=== PATIENT | male | born 1960 | race Caucasian/White ===

== ENCOUNTER → 2016-04-28 | Outpatient (REF) | payer OTHER ==
[~2016-04-28] MED LIST: ALLE180T33 PO; AMLO10TA2 PO; ASPI1TAB PO; BACT800T5 PO; CLEO300C2 PO; FURO20TA2 PO; GABA300C3 PO; GLUC1000; HYDR10TAB PO; HYDR25TA6; INSUDET SC; KEFL500C7 PO; LEVE1INJ5 SC; LISI40TA; LISI40TAB PO; METF1000 PO; NYST10PW TOP; PERCOCET PO; PREVASTATIN; PROB1TAB PO; SANT250O8 TOP; SERT50TA PO; TRIA1CR TOP; VIBR100C
== END ==
LOC: M LAB REF 12:26
PROVIDERS: ATTEND Otolaryngology
DX: D14.1 Benign neoplasm of larynx (principal)

== ENCOUNTER → 2016-07-01 | Outpatient (REF) | payer OTHER ==
[~2016-07-01] MED LIST changes: +GABA-282 PO; -GABA300C3 PO
== END ==
LOC: M LAB REF 13:09
PROVIDERS: ATTEND Nurse Practitioner Family
DX: S00.31XA Abrasion of nose, initial encounter (principal); X58.XXXA Exposure to other specified factors, initial encounter; Y93.9 Activity, unspecified; Y92.9 Unspecified place or not applicable; Y99.8 Other external cause status

== ENCOUNTER → 2016-07-09 | Outpatient (CLI) | payer OTHER ==
--- NOTE | 2016-07-09 09:31 | REP ---
MAXILLOFACIAL CT WITHOUT CONTRAST: HISTORY: Nasal bone fracture. COMPARISON: 09/11/2014. Bilateral Hector cells are present. The sinuses are clear. The osteomeatal units are patent. The middle and inferior nasal turbinates are partially paradoxical. There is cristian bullosa of the left middle nasal turbinate. There is minimal deviation of the nasal septum to the left. The cribriform plate, medial strong of the orbits, and optic canals are intact. The carotid canals form a segment of the posterolateral strong of the sphenoid sinus. There is a fracture of the nasal bone. The patient is status post left globe banding. IMPRESSION: 1. There is no acute or chronic sinusitis. 2. Nasal bone fracture. Signed by Antonio Nj MD 07/09/2016 09:32 A
== END ==
LOC: M RAD 07:07
PROVIDERS: ATTEND Otolaryngology
DX: S02.2XXA Fracture of nasal bones, initial encounter for closed fracture (principal); X58.XXXA Exposure to other specified factors, initial encounter; Y93.9 Activity, unspecified; Y92.9 Unspecified place or not applicable; Y99.8 Other external cause status

== ENCOUNTER 2017-06-04 15:41 | Emergency (ER) | payer OTHER | END 2017-06-04 17:04 | disposition home or self-care (01) | LOC: M ED 15:41 | DX: Z48.00 Encounter for change or removal of nonsurgical wound dressing (principal); E11.9 Type 2 diabetes mellitus without complications; I10 Essential (primary) hypertension; F33.9 Major depressive disorder, recurrent, unspecified | CPT/HCPCS: 99282 ==

== ENCOUNTER 2017-06-04 20:44 | Emergency (ER) | payer OTHER | END 2017-06-04 23:34 | disposition home or self-care (01) | LOC: M ED 20:44 | DX: Z45.2 Encounter for adjustment and management of vascular access device (principal); J38.7 Other diseases of larynx; Z79.2 Long term (current) use of antibiotics; Z79.899 Other long term (current) drug therapy; Z79.4 Long term (current) use of insulin; Z79.82 Long term (current) use of aspirin | CPT/HCPCS: 99284 ==

== ENCOUNTER 2017-07-14 15:40 | Emergency (ER) | payer OTHER ==
[2017-07-14] MEDS: NS 1,000 ML IV (17:34)
[2017-07-14 17:43] LABS: HEMATOCRIT 34.8 % (42.0-52.0); HEMOGLOBIN 11.6 g/dl (13.5-17.5); MEAN CORPUSCULAR HEMOGLOBIN 30.9 pg (27.0-33.0); MEAN CORPUSCULAR HGB CONC 33.3 g/dl (32.0-36.5); MEAN CORPUSCULAR VOLUME 92.6 fl (80.0-96.0); PLATELET COUNT, AUTOMATED 154 10^3/uL (150-450); RED BLOOD COUNT 3.76 10^6/uL (4.30-6.10); RED CELL DISTRIBUTION WIDTH 14.3 % (11.5-14.5); WHITE BLOOD COUNT 3.9 10^3/uL (4.0-10.0)
[2017-07-14 18:01] LABS: ANION GAP 5 MEQ/L (8-16); BLOOD UREA NITROGEN 18 MG/DL (7-18); CALCIUM LEVEL 8.7 MG/DL (8.5-10.1); CARBON DIOXIDE LEVEL 30 MEQ/L (21-32); CHLORIDE LEVEL 102 MEQ/L (98-107); GLOMERULAR FILTRATION RATE > 60.0 (>56); GLUCOSE, FASTING 115 MG/DL (70-100); POTASSIUM SERUM 4.1 MEQ/L (3.5-5.1); SODIUM LEVEL 137 MEQ/L (136-145)
[2017-07-14] MEDS ORDERED: ISOVUE-370 76% 100ML VIAL (Q9967) As Ordered (18:13)
== END 2017-07-14 20:08 | disposition home or self-care (01) ==
LOC: M ED 15:40
DX: K64.9 Unspecified hemorrhoids (principal); R93.429 Abnormal radiologic findings on diagnostic imaging of unspecified kidney; E11.9 Type 2 diabetes mellitus without complications; I10 Essential (primary) hypertension; F32.9 Major depressive disorder, single episode, unspecified; Z87.01 Personal history of pneumonia (recurrent); Z89.412 Acquired absence of left great toe; Z79.82 Long term (current) use of aspirin; Z79.4 Long term (current) use of insulin; Z79.899 Other long term (current) drug therapy
CPT/HCPCS: Q9967

== ENCOUNTER 2017-07-29 08:42 | Day surgery (SDC) | payer OTHER ==
[2017-07-29] MEDS ORDERED: LIDOCAINE 2% INJ 100 MG/5 ML SDV (FOR ANES.) As Ordered (08:57)
[2017-07-29] MEDS ORDERED: PROPOFOL 200 MG/20 ML VIAL As Ordered ×3 (08:57→12:11)
[2017-07-29] MEDS: NS 1,000 ML IV (09:00)
[2017-07-29 09:31] LABS: BEDSIDE GLUCOSE 101 MG/DL (70-105)
== END 2017-07-29 11:49 | disposition home or self-care (01) ==
LOC: M OPP 08:42
DX: K62.5 Hemorrhage of anus and rectum (principal); R63.4 Abnormal weight loss; D12.0 Benign neoplasm of cecum; D12.2 Benign neoplasm of ascending colon; D12.5 Benign neoplasm of sigmoid colon; K64.8 Other hemorrhoids; R13.10 Dysphagia, unspecified; K22.8 Other specified diseases of esophagus; K29.70 Gastritis, unspecified, without bleeding; K21.0 Gastro-esophageal reflux disease with esophagitis; I10 Essential (primary) hypertension; E78.5 Hyperlipidemia, unspecified; E11.9 Type 2 diabetes mellitus without complications; D64.9 Anemia, unspecified; Z86.14 Personal history of Methicillin resistant Staphylococcus aureus infection; L30.9 Dermatitis, unspecified; F41.9 Anxiety disorder, unspecified; F32.9 Major depressive disorder, single episode, unspecified; G47.30 Sleep apnea, unspecified; Z79.82 Long term (current) use of aspirin; Z79.4 Long term (current) use of insulin
CPT/HCPCS: 45380

== ENCOUNTER 2017-08-25 18:46 | Inpatient (IN) | payer OTHER ==
[2017-08-25 19:29] LABS: VENOUS BASE EXCESS 2.5 (-2.0-2.0); VENOUS HCO3 25.8 MEQ/L (23.0-27.0); VENOUS O2 SATURATION 93.5 % (60.0-80.0); VENOUS PARTIAL PRESSURE CO2 35.7 mmHg (38.0-50.0); VENOUS PARTIAL PRESSURE O2 62.3 mmHg (30.0-50.0); VENOUS PH 7.477 UNITS (7.330-7.430); VENOUS STANDARD HCO3 26.6 MEQ/L; VENOUS TOTAL CO2 26.9 MEQ/L (24.0-28.0)
[2017-08-25 19:31] LABS: BASO % 0.2 % (0.0-1.0); EOS % 0.4 % (0.0-3.0); HEMATOCRIT 37.8 % (42.0-52.0); HEMOGLOBIN 13.2 g/dl (13.5-17.5); IMMATURE GRANULOCYTE % 0.5 % (0-3.0); LYMPH # 0.9 10^3/uL (1.5-4.5); LYMPH % 8.7 % (24.0-44.0); MEAN CORPUSCULAR HEMOGLOBIN 31.4 pg (27.0-33.0); MEAN CORPUSCULAR HGB CONC 34.9 g/dl (32.0-36.5); MONO # 0.7 10^3/uL (0.0-0.8); MONO % 6.5 % (0.0-5.0); NEUTROPHILS # 8.7 10^3/uL (1.8-7.7); NEUTROPHILS % 83.7 % (36.0-66.0); PLATELET COUNT, AUTOMATED 189 10^3/uL (150-450); RED CELL DISTRIBUTION WIDTH 13.7 % (11.5-14.5); WHITE BLOOD COUNT 10.4 10^3/uL (4.0-10.0)
[2017-08-25 19:43] LABS: INR 1.23; PROTHROMBIN TIME 15.7 SECONDS (12.1-14.4)
[2017-08-25 19:55] LABS: ALBUMIN 3.5 GM/DL (3.2-5.2); ALBUMIN/GLOBULIN RATIO 0.88 (1.00-1.93); ALKALINE PHOSPHATASE 97 U/L (45-117); ALT/SGPT 34 U/L (12-78); ANION GAP 10 MEQ/L (8-16); AST/SGOT 23 U/L (7-37); BILIRUBIN,DIRECT 0.4 MG/DL (0.0-0.2); BILIRUBIN,TOTAL 1.4 MG/DL (0.2-1.0); BLOOD UREA NITROGEN 14 MG/DL (7-18); CALCIUM LEVEL 8.9 MG/DL (8.5-10.1); CARBON DIOXIDE LEVEL 26 MEQ/L (21-32); CHLORIDE LEVEL 100 MEQ/L (98-107); CPK CREATINE PHOSPHOKINASE 63 U/L (39-308); CREATININE FOR GFR 1.02 MG/DL (0.70-1.30); GLOMERULAR FILTRATION RATE > 60.0 (>56); GLUCOSE, FASTING 138 MG/DL (70-100); POTASSIUM SERUM 4.1 MEQ/L (3.5-5.1); SODIUM LEVEL 136 MEQ/L (136-145); TOTAL PROTEIN 7.5 GM/DL (6.4-8.2); TROPONIN I < 0.02 NG/ML (< 0.10)
[2017-08-25 19:56] LABS: LACTIC ACID SEPSIS PROTOCOL 1.1 MMOL/L (0.4-2.0)
[2017-08-25 20:01] LABS: CK-MB VALUE MASS < 1.0 NG/ML (<3.6); MB/CK RELATIVE INDEX 1.58 (< OR =4); NT-PRO BNP 1386 PG/ML (<125); THYROID STIMULATING HORMONE 0.533 uIU/ML (0.358-3.740)
[2017-08-25] MEDS: ACETAMINOPHEN TAB 650MG DOSE (2X325MG) PO (20:15)
[2017-08-25] MEDS ORDERED: LIDOCAINE 4% TOPICAL SOLN 50 ML BTL TOP (20:15)
[2017-08-25] MEDS ORDERED: ISOVUE-370 76% 100ML VIAL (Q9967) As Ordered (20:18)
[2017-08-25] MEDS: LIDOCAINE VISCOUS 2% SOLN 15ML UDC SS (20:45)
[2017-08-25] MEDS: HumaLOG INSULIN (NovoLOG) PER UNIT SC (21:00)
[2017-08-25] MEDS: VANCOMYCIN HCL 1,000 MG, VIAL MATE ADAPTER 1 EACH in D5W 250 ML IV (21:30)
[2017-08-25] MEDS: PIPERACILLIN/TAZOBACTAM SOD 3.375 GM in D5W MINI-BAG PLUS 50 ML IV (21:41)
[2017-08-25] MEDS: NS 1,000 ML IV (22:58)
[2017-08-25] MEDS ORDERED: ACETAMINOPHEN TAB 650MG DOSE (2X325MG) PO (23:00)
[2017-08-25] MEDS ORDERED: DEXTROSE 50% 50 ML SYRINGE IV (23:00)
[2017-08-25] MEDS ORDERED: GLUCAGON FOR INJ 1 MG VIAL (J1610) SC (23:00)
[2017-08-25] MEDS ORDERED: GLUCOSE 4 GM CHEW TABLET PO (23:00)
[2017-08-25] MEDS ORDERED: ANUSOL HC CREAM 30GM TOP (23:30)
[2017-08-26] MEDS: TOBRAMYCIN INHAL 300 MG/5 ML SOLN INH ×3 (03:21→19:38)
[2017-08-26] MEDS: VANCOMYCIN HCL 1,000 MG, VIAL MATE ADAPTER 1 EACH in D5W 250 ML IV ×4 (03:30→20:22)
[2017-08-26 03:36] LABS: BEDSIDE GLUCOSE 152 MG/DL (70-105)
[2017-08-26] MEDS: LISINOPRIL 20 MG TAB PO ×3 (03:51→20:23)
[2017-08-26] MEDS: LACTOBACILLUS ACIDOPHILUS CAP (BACID) PO ×4 (03:54→20:22)
[2017-08-26] MEDS: PANTOPRAZOLE 40MG TAB (PROTONIX) PO ×3 (03:54→20:23)
[2017-08-26] MEDS: PIPERACILLIN/TAZOBACTAM SOD 4.5 GM in D5W MINI-BAG PLUS 50 ML IV ×4 (04:00→21:54)
[2017-08-26] MEDS: AZITHROMYCIN INJ 500 MG, VIAL MATE ADAPTER 1 EACH in D5W 250 ML IV (05:08)
[2017-08-26 05:55] LABS: BASO % 0.2 % (0.0-1.0); EOS # 0.1 10^3/uL (0.0-0.50); EOS % 1.1 % (0.0-3.0); HEMATOCRIT 34.9 % (42.0-52.0); HEMOGLOBIN 12.1 g/dl (13.5-17.5); IMMATURE GRANULOCYTE % 0.5 % (0-3.0); LYMPH # 0.8 10^3/uL (1.5-4.5); MEAN CORPUSCULAR HEMOGLOBIN 30.8 pg (27.0-33.0); MEAN CORPUSCULAR HGB CONC 34.7 g/dl (32.0-36.5); MEAN CORPUSCULAR VOLUME 88.8 fl (80.0-96.0); MONO # 0.5 10^3/uL (0.0-0.8); NEUTROPHILS # 6.7 10^3/uL (1.8-7.7); NEUTROPHILS % 82.2 % (36.0-66.0); PLATELET COUNT, AUTOMATED 166 10^3/uL (150-450); RED BLOOD COUNT 3.93 10^6/uL (4.30-6.10); RED CELL DISTRIBUTION WIDTH 13.7 % (11.5-14.5); WHITE BLOOD COUNT 8.1 10^3/uL (4.0-10.0)
[2017-08-26 06:14] LABS: ANION GAP 9 MEQ/L (8-16); BLOOD UREA NITROGEN 16 MG/DL (7-18); CALCIUM LEVEL 8.4 MG/DL (8.5-10.1); CARBON DIOXIDE LEVEL 27 MEQ/L (21-32); CHLORIDE LEVEL 100 MEQ/L (98-107); CREATININE FOR GFR 0.95 MG/DL (0.70-1.30); GLOMERULAR FILTRATION RATE > 60.0 (>56); GLUCOSE, FASTING 155 MG/DL (70-100); POTASSIUM SERUM 3.6 MEQ/L (3.5-5.1); SODIUM LEVEL 136 MEQ/L (136-145)
[2017-08-26] MEDS: NS 1,000 ML IV (06:39)
[2017-08-26] MEDS: HEPARIN SOD (PORCINE) 5000 UNITS/ML VIAL SQ ×2 (08:21→20:23)
[2017-08-26] MEDS: CitaloPRAM (CeleXA) 20 MG TAB PO (08:21)
[2017-08-26] MEDS: predniSONE 10 MG TAB PO (08:21)
[2017-08-26] MEDS: ASPIRIN 81 MG ENTERIC TAB PO (08:21)
[2017-08-26] MEDS: FAMOTIDINE 20 MG TAB PO (08:22)
[2017-08-26] MEDS: METOPROLOL TART 25 MG TABLET PO (08:22)
[2017-08-26] MEDS: amLODIPine 10 MG TAB PO (08:22)
[2017-08-26] MEDS: ATORVASTATIN 20 MG TAB PO (08:23)
[2017-08-26] MEDS: SERTRALINE HCL 50 MG TAB PO (08:23)
[2017-08-26] MEDS: SANTYL OINT 30GM TOP (08:24)
[2017-08-26] MEDS: LACTIC ACID 12% LOTION 225 GM BTL TOP (08:24)
[2017-08-26] MEDS: LEVEMIR (INSULIN DETEMIR) 1 UNITS/0.01ML SC (08:25)
[2017-08-26] MEDS: HumaLOG INSULIN (NovoLOG) PER UNIT SC ×4 (08:25→20:59)
[2017-08-26] MEDS: FUROSEMIDE 20 MG TAB PO (08:25)
[2017-08-26 09:04] LABS: CK-MB VALUE MASS < 1.0 NG/ML (<3.6); CPK CREATINE PHOSPHOKINASE 42 U/L (39-308); MB/CK RELATIVE INDEX 2.38 (< OR =4); TROPONIN I < 0.02 NG/ML (< 0.10)
[2017-08-26] MEDS ORDERED: VARIBAR NECTAR 40% w/v 240ML SUSP BTL As Ordered (10:17)
[2017-08-26] MEDS ORDERED: VARIBAR PUDDING 40% w/v 230ML TUBE As Ordered (10:17)
[2017-08-26] MEDS ORDERED: E-Z-PAQUE 96% w/w SUSP 176GM BTL As Ordered (10:17)
[2017-08-26 11:58] LABS: BEDSIDE GLUCOSE 169 MG/DL (70-105)
[2017-08-26] MEDS: predniSONE 20 MG TAB PO (12:25)
[2017-08-26] MEDS: POTASSIUM CHLORIDE 10 MEQ SR TABLET PO (12:26)
[2017-08-26] MEDS ORDERED: PROHANCE 279.3MG/ML 5ML VIAL (A9576) As Ordered (14:34)
[2017-08-26] MEDS ORDERED: PROHANCE 279.3MG/ML 15ML VIAL (A9576) As Ordered (14:35)
[2017-08-26 17:23] LABS: BEDSIDE GLUCOSE 246 MG/DL (70-105)
[2017-08-26 19:52] LABS: VANCOMYCIN LEVEL TROUGH 16.7 UG/ML (10.0-20.0)
[2017-08-26 20:31] LABS: BEDSIDE GLUCOSE 316 MG/DL (70-105)
[2017-08-27] MEDS: AZITHROMYCIN INJ 500 MG, VIAL MATE ADAPTER 1 EACH in D5W 250 ML IV (00:59)
[2017-08-27] MEDS: VANCOMYCIN HCL 1,000 MG, VIAL MATE ADAPTER 1 EACH in D5W 250 ML IV ×4 (02:00→20:22)
[2017-08-27] MEDS: PIPERACILLIN/TAZOBACTAM SOD 4.5 GM in D5W MINI-BAG PLUS 50 ML IV ×4 (04:00→22:17)
[2017-08-27 05:58] LABS: HEMATOCRIT 35.1 % (42.0-52.0); HEMOGLOBIN 12.1 g/dl (13.5-17.5); MEAN CORPUSCULAR HEMOGLOBIN 30.9 pg (27.0-33.0); MEAN CORPUSCULAR HGB CONC 34.5 g/dl (32.0-36.5); MEAN CORPUSCULAR VOLUME 89.8 fl (80.0-96.0); PLATELET COUNT, AUTOMATED 196 10^3/uL (150-450); RED BLOOD COUNT 3.91 10^6/uL (4.30-6.10); RED CELL DISTRIBUTION WIDTH 13.4 % (11.5-14.5); WHITE BLOOD COUNT 7.7 10^3/uL (4.0-10.0)
[2017-08-27 06:14] LABS: ANION GAP 6 MEQ/L (8-16); BLOOD UREA NITROGEN 16 MG/DL (7-18); C REACTIVE PROTEIN QUANTITATIV 9.36 MG/DL (0.00-0.30); CALCIUM LEVEL 8.7 MG/DL (8.5-10.1); CARBON DIOXIDE LEVEL 29 MEQ/L (21-32); CHLORIDE LEVEL 102 MEQ/L (98-107); CREATININE FOR GFR 0.98 MG/DL (0.70-1.30); GLOMERULAR FILTRATION RATE > 60.0 (>56); GLUCOSE, FASTING 142 MG/DL (70-100); SODIUM LEVEL 137 MEQ/L (136-145)
[2017-08-27] MEDS: SANTYL OINT 30GM TOP (08:53)
[2017-08-27] MEDS: HEPARIN SOD (PORCINE) 5000 UNITS/ML VIAL SQ ×2 (08:54→20:28)
[2017-08-27] MEDS: PANTOPRAZOLE 40MG TAB (PROTONIX) PO ×2 (08:54→20:28)
[2017-08-27] MEDS: LACTOBACILLUS ACIDOPHILUS CAP (BACID) PO ×3 (08:54→20:26)
[2017-08-27] MEDS: ASPIRIN 81 MG ENTERIC TAB PO (08:54)
[2017-08-27] MEDS: FUROSEMIDE 20 MG TAB PO (08:54)
[2017-08-27] MEDS: ATORVASTATIN 20 MG TAB PO (08:54)
[2017-08-27] MEDS: CitaloPRAM (CeleXA) 20 MG TAB PO (08:55)
[2017-08-27] MEDS: FAMOTIDINE 20 MG TAB PO (08:55)
[2017-08-27] MEDS: SERTRALINE HCL 50 MG TAB PO (08:55)
[2017-08-27] MEDS: predniSONE 10 MG TAB PO (08:55)
[2017-08-27] MEDS: METOPROLOL TART 25 MG TABLET PO (08:56)
[2017-08-27] MEDS: LISINOPRIL 20 MG TAB PO ×2 (08:56→20:27)
[2017-08-27] MEDS: amLODIPine 10 MG TAB PO (08:56)
[2017-08-27] MEDS: LACTIC ACID 12% LOTION 225 GM BTL TOP (08:57)
[2017-08-27] MEDS: LEVEMIR (INSULIN DETEMIR) 1 UNITS/0.01ML SC (08:57)
[2017-08-27] MEDS: HumaLOG INSULIN (NovoLOG) PER UNIT SC ×4 (08:57→20:28)
[2017-08-27] MEDS: TOBRAMYCIN INHAL 300 MG/5 ML SOLN INH ×2 (09:21→20:00)
[2017-08-27 11:35] LABS: BEDSIDE GLUCOSE 117 MG/DL (70-105)
[2017-08-27 16:57] LABS: BEDSIDE GLUCOSE 265 MG/DL (70-105)
[2017-08-27 20:17] LABS: BEDSIDE GLUCOSE 192 MG/DL (70-105)
[2017-08-28] MEDS: AZITHROMYCIN INJ 500 MG, VIAL MATE ADAPTER 1 EACH in D5W 250 ML IV (00:32)
[2017-08-28] MEDS: VANCOMYCIN HCL 1,000 MG, VIAL MATE ADAPTER 1 EACH in D5W 250 ML IV ×2 (02:07→08:18)
[2017-08-28] MEDS: PIPERACILLIN/TAZOBACTAM SOD 4.5 GM in D5W MINI-BAG PLUS 50 ML IV ×2 (04:05→10:10)
[2017-08-28 07:06] LABS: HEMATOCRIT 33.9 % (42.0-52.0); HEMOGLOBIN 11.8 g/dl (13.5-17.5); MEAN CORPUSCULAR HEMOGLOBIN 30.9 pg (27.0-33.0); MEAN CORPUSCULAR HGB CONC 34.8 g/dl (32.0-36.5); MEAN CORPUSCULAR VOLUME 88.7 fl (80.0-96.0); PLATELET COUNT, AUTOMATED 207 10^3/uL (150-450); RED BLOOD COUNT 3.82 10^6/uL (4.30-6.10); RED CELL DISTRIBUTION WIDTH 13.6 % (11.5-14.5); WHITE BLOOD COUNT 6.7 10^3/uL (4.0-10.0)
[2017-08-28 07:28] LABS: ANION GAP 8 MEQ/L (8-16); BLOOD UREA NITROGEN 17 MG/DL (7-18); C REACTIVE PROTEIN QUANTITATIV 3.43 MG/DL (0.00-0.30); CALCIUM LEVEL 8.4 MG/DL (8.5-10.1); CARBON DIOXIDE LEVEL 29 MEQ/L (21-32); CHLORIDE LEVEL 101 MEQ/L (98-107); CREATININE FOR GFR 1.04 MG/DL (0.70-1.30); GLOMERULAR FILTRATION RATE > 60.0 (>56); GLUCOSE, FASTING 110 MG/DL (70-100); MAGNESIUM LEVEL 2.2 MG/DL (1.8-2.4); POTASSIUM SERUM 3.7 MEQ/L (3.5-5.1); SODIUM LEVEL 138 MEQ/L (136-145); VANCOMYCIN LEVEL TROUGH 19.3 UG/ML (10.0-20.0)
[2017-08-28] MEDS: TOBRAMYCIN INHAL 300 MG/5 ML SOLN INH ×2 (07:51→20:30)
[2017-08-28] MEDS: HumaLOG INSULIN (NovoLOG) PER UNIT SC ×4 (08:17→21:00)
[2017-08-28] MEDS: HEPARIN SOD (PORCINE) 5000 UNITS/ML VIAL SQ ×2 (08:18→22:34)
[2017-08-28] MEDS: LEVEMIR (INSULIN DETEMIR) 1 UNITS/0.01ML SC (08:18)
[2017-08-28] MEDS: LACTOBACILLUS ACIDOPHILUS CAP (BACID) PO ×3 (08:19→20:11)
[2017-08-28] MEDS: SERTRALINE HCL 50 MG TAB PO (08:19)
[2017-08-28] MEDS: FAMOTIDINE 20 MG TAB PO (08:19)
[2017-08-28] MEDS: FUROSEMIDE 20 MG TAB PO (08:20)
[2017-08-28] MEDS: METOPROLOL TART 25 MG TABLET PO (08:20)
[2017-08-28] MEDS: predniSONE 10 MG TAB PO (08:21)
[2017-08-28] MEDS: CitaloPRAM (CeleXA) 20 MG TAB PO (08:21)
[2017-08-28] MEDS: amLODIPine 10 MG TAB PO (08:22)
[2017-08-28] MEDS: PANTOPRAZOLE 40MG TAB (PROTONIX) PO ×2 (08:22→20:11)
[2017-08-28] MEDS: ATORVASTATIN 20 MG TAB PO (08:22)
[2017-08-28] MEDS: LISINOPRIL 20 MG TAB PO ×2 (08:23→20:11)
[2017-08-28] MEDS: ASPIRIN 81 MG ENTERIC TAB PO (08:23)
[2017-08-28] MEDS: LACTIC ACID 12% LOTION 225 GM BTL TOP (10:10)
[2017-08-28] MEDS: SANTYL OINT 30GM TOP (10:43)
[2017-08-28 11:23] LABS: BEDSIDE GLUCOSE 138 MG/DL (70-105)
[2017-08-28] MEDS: LINEZOLID 600MG TABLET (ZYVOX) PO ×2 (11:54→20:11)
[2017-08-28 16:38] LABS: BEDSIDE GLUCOSE 293 MG/DL (70-105)
[2017-08-28 20:10] LABS: BEDSIDE GLUCOSE 242 MG/DL (70-105)
[2017-08-28] MEDS: CEFDINIR 300 MG CAP (OMNICEF) PO (20:11)
[2017-08-29 06:28] LABS: HEMATOCRIT 35.8 % (42.0-52.0); HEMOGLOBIN 12.3 g/dl (13.5-17.5); MEAN CORPUSCULAR HEMOGLOBIN 30.9 pg (27.0-33.0); MEAN CORPUSCULAR HGB CONC 34.4 g/dl (32.0-36.5); MEAN CORPUSCULAR VOLUME 89.9 fl (80.0-96.0); PLATELET COUNT, AUTOMATED 216 10^3/uL (150-450); RED BLOOD COUNT 3.98 10^6/uL (4.30-6.10); RED CELL DISTRIBUTION WIDTH 13.5 % (11.5-14.5)
[2017-08-29 06:44] LABS: ANION GAP 5 MEQ/L (8-16); BLOOD UREA NITROGEN 17 MG/DL (7-18); C REACTIVE PROTEIN QUANTITATIV 1.76 MG/DL (0.00-0.30); CALCIUM LEVEL 8.7 MG/DL (8.5-10.1); CARBON DIOXIDE LEVEL 31 MEQ/L (21-32); CHLORIDE LEVEL 102 MEQ/L (98-107); CREATININE FOR GFR 1.01 MG/DL (0.70-1.30); GLOMERULAR FILTRATION RATE > 60.0 (>56); GLUCOSE, FASTING 148 MG/DL (70-100); POTASSIUM SERUM 3.9 MEQ/L (3.5-5.1); SODIUM LEVEL 138 MEQ/L (136-145)
[2017-08-29] MEDS: TOBRAMYCIN INHAL 300 MG/5 ML SOLN INH (07:28)
[2017-08-29] MEDS: HumaLOG INSULIN (NovoLOG) PER UNIT SC ×2 (08:27→12:00)
[2017-08-29] MEDS: LEVEMIR (INSULIN DETEMIR) 1 UNITS/0.01ML SC (08:28)
[2017-08-29] MEDS: LACTOBACILLUS ACIDOPHILUS CAP (BACID) PO ×2 (08:28→15:59)
[2017-08-29] MEDS: CEFDINIR 300 MG CAP (OMNICEF) PO (08:28)
[2017-08-29] MEDS: predniSONE 10 MG TAB PO (08:29)
[2017-08-29] MEDS: FAMOTIDINE 20 MG TAB PO (08:29)
[2017-08-29] MEDS: LISINOPRIL 20 MG TAB PO (08:29)
[2017-08-29] MEDS: CitaloPRAM (CeleXA) 20 MG TAB PO (08:29)
[2017-08-29] MEDS: METOPROLOL TART 25 MG TABLET PO (08:29)
[2017-08-29] MEDS: LINEZOLID 600MG TABLET (ZYVOX) PO ×2 (08:30→15:59)
[2017-08-29] MEDS: amLODIPine 10 MG TAB PO (08:30)
[2017-08-29] MEDS: FUROSEMIDE 20 MG TAB PO (08:30)
[2017-08-29] MEDS: ATORVASTATIN 20 MG TAB PO (08:30)
[2017-08-29] MEDS: ASPIRIN 81 MG ENTERIC TAB PO (08:30)
[2017-08-29] MEDS: PANTOPRAZOLE 40MG TAB (PROTONIX) PO (08:30)
[2017-08-29] MEDS: HEPARIN SOD (PORCINE) 5000 UNITS/ML VIAL SQ (08:31)
[2017-08-29] MEDS: LACTIC ACID 12% LOTION 225 GM BTL TOP (08:32)
[2017-08-29] MEDS: SANTYL OINT 30GM TOP (08:32)
[2017-08-30 00:07] LABS: BODY FLUID CULTURE Not Indicated (.); LEGIONELLA ANTIGEN URINE Negative (Negative); ORGANISM ID Not indicated. (.); SPECIMEN SOURCE Urine (.); URINE STREP PNEUMONIAE ANTIGEN Negative (Negative)
== END 2017-08-29 16:05 | disposition home or self-care (01) | DRG 143 ==
LOC: M PCU 08-26 02:54 → M MS5PR 08-27 16:23 → M ED 18:46 → M ED INP 22:58
PROC: 0CJS8ZZ Inspection of Larynx, Via Natural or Artificial Opening Endoscopic (ICD-10-PCS; principal; 2017-08-25)
DX: J95.89 Other postprocedural complications and disorders of respiratory system, not elsewhere classified (principal); J15.212 Pneumonia due to Methicillin resistant Staphylococcus aureus; A41.9 Sepsis, unspecified organism; E11.621 Type 2 diabetes mellitus with foot ulcer; L97.519 Non-pressure chronic ulcer of other part of right foot with unspecified severity; R13.13 Dysphagia, pharyngeal phase; I10 Essential (primary) hypertension; J38.7 Other diseases of larynx; L03.031 Cellulitis of right toe; D35.00 Benign neoplasm of unspecified adrenal gland; E66.9 Obesity, unspecified; E78.5 Hyperlipidemia, unspecified; F32.9 Major depressive disorder, single episode, unspecified; G47.33 Obstructive sleep apnea (adult) (pediatric); Z79.52 Long term (current) use of systemic steroids; Z89.422 Acquired absence of other left toe(s); Z79.4 Long term (current) use of insulin; Z79.82 Long term (current) use of aspirin; Z79.899 Other long term (current) drug therapy; Y95 Nosocomial condition

== ENCOUNTER 2018-07-16 08:18 | Emergency (ER) | payer OTHER ==
[~2018-07-16] VITALS: Ht 188 cm; Wt 125.5 kg
[~2018-07-16 08:18] MED LIST changes: -AMLO10TA2 PO; +AMLO10TA5 PO; +AMMO12CR7 TOP; +AMOX875T2 PO; +ANUS2.5C2 EXT; -ASPI1TAB PO; +ASPI81TA26 PO; +ATOR1TAB21 PO; +CEFD1CAP8 PO; +CITA40TA4 PO; -GABA-282 PO; +GABA-843 PO; +HYDR-2773 PO; -HYDR10TAB PO; +HYDR2.5C54 TOP; +KEFL500C17 PO; -KEFL500C7 PO; +LINE600T11 PO; +LISI-538 PO; +LISI40TA52 PO; -LISI40TAB PO; -METF1000 PO; +METF10004 PO; +METO1TAB87 PO; +NYST-15 TOP; -NYST10PW TOP; +OMEP40CA2 PO; +PANT40TA3 PO; +PRED10PA PO; +PRED10TA2 PO; +RANI300T PO; +SERT-141 PO; -SERT50TA PO; +TOBR1NEB INH; +TRIA0.1C60 TOP; -TRIA1CR TOP
[2018-07-16] MEDS ORDERED: ASPIRIN 81 MG CHEW TABLET PO ONE (08:45)
[2018-07-16 08:52] LABS: BASO % 0.5 % (0.0-1.0); EOS # 0.1 10^3/uL (0.0-0.50); EOS % 3.3 % (0.0-3.0); HEMATOCRIT 37.1 % (42.0-52.0); HEMOGLOBIN 12.9 g/dl (13.5-17.5); LYMPH # 0.9 10^3/uL (1.5-4.5); LYMPH % 22.3 % (24.0-44.0); MEAN CORPUSCULAR HEMOGLOBIN 34.8 pg (27.0-33.0); MEAN CORPUSCULAR HGB CONC 34.8 g/dl (32.0-36.5); MONO # 0.3 10^3/uL (0.0-0.8); MONO % 6.3 % (0.0-5.0); NEUTROPHILS # 2.7 10^3/uL (1.8-7.7); NEUTROPHILS % 67.1 % (36.0-66.0); PLATELET COUNT, AUTOMATED 147 10^3/uL (150-450); RED BLOOD COUNT 3.71 10^6/uL (4.30-6.10)
[2018-07-16] MEDS ORDERED: ENAL20TA PO (08:53)
[2018-07-16] MEDS ORDERED: FOLI800C PO (08:53)
[2018-07-16] MEDS ORDERED: ROSU20TA4 PO (08:53)
[2018-07-16] MEDS ORDERED: OXYC15TA76 PO (08:53)
[2018-07-16] MEDS ORDERED: BISO5TAB5 PO (08:53)
[2018-07-16] MEDS ORDERED: METH2.5T48 PO (08:53)
--- NOTE | 2018-07-16 09:17 | REP ---
Chest one-view HISTORY: Chest pain Comparison: 09/07/2017 The lungs are clear. The heart is upper limits of normal in size. The pulmonary vasculature is normal in appearance. Impression: No acute disease. Electronically Signed by Antonio Nj MD 07/16/2018 09:08 A
[2018-07-16 09:23] LABS: ALT/SGPT 62 U/L (12-78); BILIRUBIN,DIRECT 0.3 MG/DL (0.0-0.2); BILIRUBIN,TOTAL 0.8 MG/DL (0.2-1.0); BLOOD UREA NITROGEN 14 MG/DL (7-18); CALCIUM LEVEL 8.5 MG/DL (8.5-10.1); CARBON DIOXIDE LEVEL 25 MEQ/L (21-32); CHLORIDE LEVEL 103 MEQ/L (98-107); CK-MB VALUE MASS 4.7 NG/ML (<3.6); CPK CREATINE PHOSPHOKINASE 238 U/L (39-308); CREATININE FOR GFR 1.14 MG/DL (0.70-1.30); GLOMERULAR FILTRATION RATE > 60.0 (>56); GLUCOSE, FASTING 165 MG/DL (70-100); LIPASE 272 U/L (73-393); MB/CK RELATIVE INDEX 1.97 (< OR =4); POTASSIUM SERUM 4.2 MEQ/L (3.5-5.1); SODIUM LEVEL 137 MEQ/L (136-145); TOTAL PROTEIN 7.5 GM/DL (6.4-8.2); TROPONIN I < 0.02 NG/ML (< 0.10)
--- NOTE | 2018-07-16 11:10 | REP ---
GALLBLADDER ULTRASOUND: HISTORY: Epigastric pain. The gallbladder is distended. Calcifications are present in the gallbladder consistent with cholelithiasis. The gallbladder wall is thickened measuring 6 mm. The common bile duct measures 4.4 mm. The liver is enlarged measuring 19.2 cm. There is fatty infiltration of the liver. The pancreas is not seen due to overlying bowel gas. The right kidney measures 6.2 cm in transverse x 5.5 cm in AP x 13 cm in cephalocaudal dimensions. There is no hydronephrosis or mass. IMPRESSION: 1. The gallbladder wall is distended with a thickened wall. Calcifications are present consisting with cholelithiasis. 2. The liver is enlarged. There is fatty infiltration of the liver. Electronically Signed by Antonio Nj MD 07/16/2018 11:16 A
[2018-07-16 11:46] LABS: CK-MB VALUE MASS 4.2 NG/ML (<3.6); CPK CREATINE PHOSPHOKINASE 195 U/L (39-308); MB/CK RELATIVE INDEX 2.15 (< OR =4); TROPONIN I < 0.02 NG/ML (< 0.10)
[2018-07-16] MEDS ORDERED: NORC1TAB7 PO (13:36)
[2018-07-16] MEDS ORDERED: AUGM875T28 PO (13:36)
[2018-07-16 14:34] VITALS: BP 176/83
--- NOTE | 2018-07-16 19:49 | ECGEPIP ---
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
--- NOTE | 2018-07-16 19:52 | ECGEPIP ---
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
== END 2018-07-16 14:38 | disposition home or self-care (01) ==
LOC: M ED 08:18
DX: K80.50 Calculus of bile duct without cholangitis or cholecystitis without obstruction (principal); R00.1 Bradycardia, unspecified; I45.10 Unspecified right bundle-branch block; I44.0 Atrioventricular block, first degree; K76.0 Fatty (change of) liver, not elsewhere classified; R16.0 Hepatomegaly, not elsewhere classified; E11.9 Type 2 diabetes mellitus without complications; I10 Essential (primary) hypertension; E78.5 Hyperlipidemia, unspecified; K21.9 Gastro-esophageal reflux disease without esophagitis; G47.30 Sleep apnea, unspecified; F32.9 Major depressive disorder, single episode, unspecified; F41.9 Anxiety disorder, unspecified; Z86.14 Personal history of Methicillin resistant Staphylococcus aureus infection; Z79.82 Long term (current) use of aspirin; Z79.84 Long term (current) use of oral hypoglycemic drugs; Z79.899 Other long term (current) drug therapy

== ENCOUNTER → 2018-08-09 | Outpatient (REF) | payer OTHER ==
[~2018-08-09] MED LIST changes: +AUGM875T28 PO; +BISO5TAB5 PO; +ENAL20TA PO; +FOLI800C PO; +LINE1TAB6 PO; -LINE600T11 PO; +METH2.5T48 PO; +NORC1TAB7 PO; +OXYC15TA76 PO; +ROSU20TA5 PO
== END ==
LOC: M LAB REF 16:12
PROVIDERS: ATTEND Nurse Practitioner Adult Health
DX: L03.032 Cellulitis of left toe (principal)

== ENCOUNTER 2018-10-16 20:24 | Inpatient (IN) | payer OTHER ==
[~2018-10-16] VITALS: Ht 188 cm; Wt 123.0 kg
[~2018-10-16 20:24] MED LIST changes: -BISO5TAB5 PO; +BISO5TAB9 PO
[2018-10-16] MEDS ORDERED: ALLE1TAB23 PO (20:55)
[2018-10-16 21:13] LABS: BASO % 0.2 % (0.0-1.0); HEMATOCRIT 40.5 % (42.0-52.0); HEMOGLOBIN 14.4 g/dl (13.5-17.5); LYMPH # 0.8 10^3/uL (1.5-5.0); LYMPH % 8.3 % (24.0-44.0); MEAN CORPUSCULAR HEMOGLOBIN 33.7 pg (27.0-33.0); MEAN CORPUSCULAR HGB CONC 35.6 g/dl (32.0-36.5); MEAN CORPUSCULAR VOLUME 94.8 fl (80.0-96.0); MONO # 0.9 10^3/uL (0.0-0.8); MONO % 9.2 % (0.0-5.0); NEUTROPHILS # 8.2 10^3/uL (1.5-8.5); NEUTROPHILS % 81.7 % (36.0-66.0); PLATELET COUNT, AUTOMATED 173 10^3/uL (150-450); RED BLOOD COUNT 4.27 10^6/uL (4.30-6.10)
[2018-10-16 21:24] LABS: ALBUMIN 3.9 GM/DL (3.2-5.2); ALT/SGPT 32 U/L (12-78); AMYLASE 35 U/L (25-115); BILIRUBIN,DIRECT 0.7 MG/DL (0.0-0.2); BILIRUBIN,TOTAL 1.9 MG/DL (0.2-1.0); BLOOD UREA NITROGEN 16 MG/DL (7-18); CALCIUM LEVEL 9.3 MG/DL (8.5-10.1); CARBON DIOXIDE LEVEL 23 MEQ/L (21-32); CHLORIDE LEVEL 97 MEQ/L (98-107); CREATININE FOR GFR 1.15 MG/DL (0.70-1.30); GLOMERULAR FILTRATION RATE > 60.0 (>56); GLUCOSE, FASTING 240 MG/DL (70-100); INR 1.21; LIPASE 194 U/L (73-393); POTASSIUM SERUM 4.1 MEQ/L (3.5-5.1); SODIUM LEVEL 131 MEQ/L (136-145); TOTAL PROTEIN 7.5 GM/DL (6.4-8.2)
[2018-10-16 21:25] LABS: PARTIAL THROMBOPLASTIN TIME 33.4 SECONDS (25.0-38.4)
[2018-10-16] MEDS ORDERED: MORPHINE 4 MG/ML 1ML VIAL/SYRINGE (J2270) IV ONE (22:45)
[2018-10-16] MEDS ORDERED: NS 500 ML IV ONE (22:45)
[2018-10-16] MEDS ORDERED: ISOVUE-370 76% 100ML VIAL (Q9967) As Ordered ONE (23:19)
--- NOTE | 2018-10-17 00:55 | REPVR ---
EXAM: CT Abdomen and Pelvis With Contrast EXAM DATE/TIME: 10/16/2018 10:38 PM CLINICAL HISTORY: 58 years old, male; Abdominal pain; Generalized TECHNIQUE: Imaging protocol: Computed tomography of the abdomen and pelvis with intravenous contrast. Radiation optimization: All CT scans at this facility use at least one of these dose optimization techniques: automated exposure control; mA and/or kV adjustment per patient size (includes targeted exams where dose is matched to clinical indication); or iterative reconstruction. Contrast material: ISO; Contrast volume: 100 ml; Contrast route: AC; COMPARISON: GALLBLADDER US 07/16/2018 10:31:[address] ABD/PEL W/IV CONTRAST ONLY 07/14/2017 6:14 PM FINDINGS: Lungs: The imaged lung bases are clear. Heart: No cardiomegaly. There is a trace amount of pericardial fluid. Mitral annular calcifications are present. Liver: The attenuation of the liver is lower compared to the spleen, which can be seen with fatty liver infiltration. No liver lesion is seen. The contour of the liver is smooth. The liver is enlarged and measures 16.6 cm in craniocaudal dimension at the level of the right midclavicular line. Gallbladder and bile ducts: The gallbladder is distended and contains several calcified gallstones and there is inflammatory fat stranding around the gallbladder, which are findings compatible with acute cholecystitis. No dilation of the intrahepatic or extrahepatic bile ducts is noted. Pancreas: Normal. No ductal dilation. Spleen: Normal. No splenomegaly. Adrenals: There is a 2 cm nodule in the medial limb of the right adrenal gland and a 1.6 cm nodule in the medial limb of the left adrenal gland, which are unchanged in size compared to the prior CT scan on 07/14/2017 and compatible with benign adrenal adenomas for which follow-up is not necessary. Kidneys and ureters: Incidental note is made of a 4 mm simple cyst in the posterior cortex of the midpole of the right kidney, which is unchanged compared to the prior CT scan on 07/14/2017 for which follow-up is not necessary. No calculi are seen in the kidneys or ureters. There is no hydronephrosis or hydroureter. There are no wedge-shaped areas of low attenuation in the kidneys to suggest pyelonephritis. There is no renal abscess or perinephric fluid collection. Stomach and bowel: There is no evidence for a bowel obstruction, diverticulosis, diverticulitis, colitis, pneumatosis intestinalis, intussusception, volvulus, or perforated viscus. Appendix: Normal. No evidence for appendicitis. Intraperitoneal space: Unremarkable. No free air. No fluid collection. Vasculature: The abdominal aorta is patent, normal in caliber, and there is no dissection. There are mild to moderate atherosclerotic calcifications. The renal arteries, celiac artery, superior mesenteric artery, inferior mesenteric artery, iliac arteries, and common femoral arteries are patent. The hepatic veins, portal veins, splenic vein, superior mesenteric vein, inferior mesenteric vein, and renal veins are patent. Lymph nodes: There is a 17 mm in short axis periportal lymph node, which has decreased in size from 20 mm compared to the prior CT scan on 07/14/2017. Bladder: Unremarkable. No calculi or masses are noted in the bladder. Reproductive: The prostate gland and seminal vesicles are unremarkable. Bones/joints: The imaged bony structures are intact. There is no suspicious osteolytic or osteoblastic lesion. Incidental note is made of a small bone island in the left femoral head, which is unchanged compared to the prior CT scan on 07/14/2017. There are degenerative changes in the lumbar spine. Soft tissues: Unremarkable. IMPRESSION: 1. Acute cholecystitis. 2. Enlarged, fatty liver. COMMENT: Consistent with the [employer]'s Incidental Findings Committee Report (J Am Leif Radiol 2010): Unless the patient's specific circumstances suggest otherwise, any liver lesion 0.5 cm or less, any cystic kidney lesion less than 1.0 cm, and/or any adrenal lesion 1.0 cm or less not otherwise characterized in this report as possessing suspicious or indeterminate imaging features is/are highly likely to be benign and do not require follow-up imaging or biopsy. Electronically signed by: Prabhu Perkins On 10/17/2018 00:55:00 AM
[2018-10-17] MEDS ORDERED: FOLI1TAB11 PO (01:26)
[2018-10-17] MEDS ORDERED: FEXO-4 PO (01:26)
[2018-10-17] MEDS ORDERED: ALKATAB21 PO (01:35)
[2018-10-17] MEDS ORDERED: MORPHINE 4 MG/ML 1ML VIAL/SYRINGE (J2270) IV ONE (02:00)
[2018-10-17] MEDS ORDERED: ONDANSETRON 4MG/2ML VIAL (J2405) IV PRN (02:00)
[2018-10-17] MEDS ORDERED: MORPHINE 2 MG/ML 1ML SYRINGE (J2270) IV PRN (02:00)
[2018-10-17] MEDS ORDERED: cefTRIAXone SOD 1 GM in D5W MINI-BAG PLUS 50 ML IV ONE (02:00)
[2018-10-17] MEDS: LR 1,000 ML IV SCH ×4 (02:10→21:00)
--- NOTE | 2018-10-17 03:08 | REPVR ---
EXAM: US Abdomen Limited, Right Upper Quadrant EXAM DATE/TIME: 10/17/2018 2:51 AM CLINICAL HISTORY: 58 years old, male; Abdominal pain; Acute; Additional info: Cholecystitis TECHNIQUE: Imaging protocol: Real-time ultrasound of the abdomen with image documentation. Examination was focused on the right upper quadrant. COMPARISON: CT ABD/PEL W/IV CONTRAST 10/16/2018 11:23:02 PM GALLBLADDER US 07/16/2018 10:31 AM FINDINGS: Liver: The liver is enlarged and measures 17.5 cm. The echogenicity of the liver is increased and there is poor sound transition through the liver, which are findings compatible with fatty liver infiltration. No liver lesion is identified from the images obtained. The contour of the liver is smooth. Gallbladder: The gallbladder is distended, contains calculi and biliary sludge, and there is gallbladder wall thickening and a positive sonographic Wade's sign, which are findings compatible with acute cholecystitis. Common bile duct: The common bile duct measures 6 mm in diameter at the level of the spenser hepatis. Pancreas: The visualized portion of the pancreas is unremarkable. Right kidney: The right kidney is unremarkable and measures 12.6 cm in length. There is no renal cortical thinning. The renal cortical echogenicity is within normal limits. No renal mass is seen. There is no hydronephrosis. No obvious stones are seen in the renal collecting system. Intraperitoneal space: No free fluid is seen from the images obtained. IMPRESSION: 1. Acute cholecystitis. 2. Enlarged, fatty liver. Electronically signed by: Prabhu Perkins On 10/17/2018 03:08:16 AM
[2018-10-17] MEDS ORDERED: BISOPROLOL FUMARATE 5 MG TAB PO ONE (04:30)
--- NOTE | 2018-10-17 04:48 | CR.PDOC ---
General Date of Consultation: Oct 17, 2018 Referring Provider: MIGUEL HAN DO Primary Care Physician: Celeste Romero Attending Physician: MIGUEL HAN DO Consultation TIME OF SERVICE: 5:30 AM REASON FOR CONSULT: Preoperative evaluation CHIEF COMPLAINT: abdominal pain HISTORY OF PRESENT ILLNESS: This is a 58-year-old male who presents with complaints of right-sided, throbbing, 9 out of 10 in intensity abdominal pain; based on the blood work and imaging studies was diagnosed with acute cholecystitis. REVIEW OF SYSTEMS: 12 point review of systems negative except as listed in HPI PAST MEDICAL/ SURGICAL HISTORY: Type 2 diabetes complicated by peripheral neuropathy, no longer on insulin Chronic hypertension Dyslipidemia Ghulam's granulomatosis of larynx History cellulitis foot ulcer affecting the right fourth toe Obesity/obstructive sleep apnea Status post abdominal hernia repair Status post eye surgery to repair retinal detachment He denies ever having a stroke or heart attack SOCIAL HISTORY: Nonsmoker 3 beers 3 times a week FAMILY HISTORY: Diabetes ALLERGIES: Please see below. HOME MEDICATIONS: Please see below. PHYSICAL EXAMINATION: VITAL SIGNS: Please see below. GENERAL APPEARANCE: Well-nourished, well-developed, not in apparent distress HEENT: No cephalic, atraumatic, mucous numbers moist and pink CARDIOVASCULAR: Regular Rate and rhythm. No murmurs, rubs or gallops LUNGS: Clear Auscultation bilaterally on room air ABDOMEN: Tender on palpation PSYCHIATRIC: Alert and oriented to person, place and time, able to understand follow commands LABORATORY DATA: See below. IMAGING: CT of abdomen "IMPRESSION: 1. Acute cholecystitis. 2. Enlarged, fatty liver. " US abdomen "IMPRESSION: 1. Acute cholecystitis. 2. Enlarged, fatty liver. " MICROBIOLOGY: Please see below. ASSESSMENT: Mr. Reeves is a 58-year-old male with a past medical history of chronic hypertension, diabetes, this lipidemia, and GERD who is admitted for management of acute cholecystitis; we were consulted for perioperative eval. PLAN: 1. Perioperative evaluation He can walk 1 flight of stairs without resting and no longer takes insulin for his diabetes. ASA Class III Revised Cardiac Risk Index Score = 1 point = no additional testing is indicated Plan: no additional testing is indicated, ok to proceed with surgery / hold ASA 2. Chronic HTN Plan:taking bisprolol 3. NIDDM Plan: f/u accuchecks & A1C Rest per primary care team. Thank you for consulting us; we will continue to follow this patient with you. Vital Signs/I&O Vital Signs Date Time Temp Pulse Resp B/P (MAP) Pulse Ox O2 Delivery O2 Flow Rate FiO2 10/17/18 04:39 67 18 168/93 (118) 95 10/17/18 04:09 Room Air 10/16/18 20:25 97.8 I&O- Last 24 Hours up to 6 AM 10/17/18 06:00 Intake Total 550 ml Balance 550 ml Laboratory Data Labs 24H Laboratory Tests 2 10/16/18 20:50: Immature Granulocyte % (Auto) 0.6, White Blood Count 10.0, Red Blood Count 4.27L, Hemoglobin 14.4, Hematocrit 40.5L, Mean Corpuscular Volume 94.8, Mean Corpuscular Hemoglobin 33.7H, Mean Corpuscular Hemoglobin Concent 35.6, Red Cell Distribution Width 13.8, Platelet Count 173, Neutrophils (%) (Auto) 81.7H, Lymphocytes (%) (Auto) 8.3L, Monocytes (%) (Auto) 9.2H, Eosinophils (%) (Auto) 0.0, Basophils (%) (Auto) 0.2, Neutrophils # (Auto) 8.2, Lymphocytes # (Auto) 0.8L, Monocytes # (Auto) 0.9H, Eosinophils # (Auto) 0.0, Basophils # (Auto) 0.0, Nucleated Red Blood Cells % (auto) 0.0, Prothrombin Time 15.0H, Prothromb Time International Ratio 1.21, Activated Partial Thromboplast Time 33.4, Anion Gap 11, Glomerular Filtration Rate > 60.0, Calcium Level 9.3, Aspartate Amino Transf (AST/SGOT) 20, Alanine Aminotransferase (ALT/SGPT) 32, Alkaline Phosphatase 61, Total Bilirubin 1.9H, Direct Bilirubin 0.7H, Total Protein 7.5, Albumin 3.9, Albumin/Globulin Ratio 1.08, Amylase Level 35, Lipase 194 CBC/BMP Laboratory Tests 10/16/18 20:50 Red Blood Count 4.27 L, Mean Corpuscular Volume 94.8, Mean Corpuscular Hemogl obin 33.7 H, Mean Corpuscular Hemoglobin Concent 35.6, Red Cell Distribution Width 13.8, Neutrophils (%) (Auto) 81.7 H, Lymphocytes (%) (Auto) 8.3 L, Monocytes (%) (Auto) 9.2 H, Eosinophils (%) (Auto) 0.0, Basophils (%) (Auto) 0.2, Neutrophils # (Auto) 8.2, Lymphocytes # (Auto) 0.8 L, Monocytes # (Auto) 0.9 H, Eosinophils # (Auto) 0.0, Basophils # (Auto) 0.0 Allergies Coded Allergies: No Known Allergies (Verified , 05/30/08) Home Medications Scheduled Aspirin (Aspirin EC) 81 Mg Tab, 81 MG PO DAILY, (Reported) Bisoprolol Fumarate (Bisoprolol Fumarate) 5 Mg Tablet, 5 MG PO DAILY, (Reported) Folic Acid (Folic Acid) 1 Mg Tablet, 1 MG PO DAILY, (Reported) Methotrexate Sodium (Methotrexate) 2.5 Mg Tablet, 10 MG PO 1XWK, (Reported) THURSDAYS Rosuvastatin Calcium (Rosuvastatin Calcium) 20 Mg Tablet, 20 MG PO DAILY, (Reported) Scheduled PRN Chlorphenir/Phenyleph/Aspirin (Cynthia-[place] Plus Cold Tab Eff) 1 Each Tablet.eff, 2 TAB PO Q4H PRN for COLD SYMPTOMS, (Reported) Fexofenadine HCl (Fexofenadine HCl) 180 Mg Tablet, 180 MG PO DAILY PRN for ALLERGY SYMPTOMS, (Reported) HAYLIE LUIS MD Oct 17, 2018 04:48
[2018-10-17] MEDS ORDERED: GLUCOSE 4 GM CHEW TABLET PO PRN (05:00)
[2018-10-17] MEDS ORDERED: DEXTROSE 50% 50 ML SYRINGE IV PRN (05:00)
[2018-10-17] MEDS ORDERED: GLUCAGON FOR INJ 1 MG VIAL (J1610) SC PRN (05:00)
[2018-10-17 05:15] LABS: NT-PRO BNP 959 PG/ML (<125)
[2018-10-17 05:41] VITALS: BP 158/90
[2018-10-17] MEDS: MORPHINE 4 MG/ML 1ML VIAL/SYRINGE (J2270) IV PRN ×3 (06:30→18:11)
[2018-10-17 08:32] LABS: HEMOGLOBIN A1c 7.7 %
[2018-10-17] MEDS: BISOPROLOL FUMARATE 5 MG TAB PO SCH (08:35)
[2018-10-17] MEDS: FOLIC ACID 1 MG TAB PO SCH (08:35)
[2018-10-17 09:17] LABS: BILIRUBIN,DIRECT 1.7 MG/DL (0.0-0.2); BILIRUBIN,TOTAL 2.9 MG/DL (0.2-1.0)
[2018-10-17 10:08] LABS: HEMATOCRIT 37.4 % (42.0-52.0); HEMOGLOBIN 13.1 g/dl (13.5-17.5); MEAN CORPUSCULAR HEMOGLOBIN 34.3 pg (27.0-33.0); MEAN CORPUSCULAR VOLUME 97.9 fl (80.0-96.0); PLATELET COUNT, AUTOMATED 157 10^3/uL (150-450); RED BLOOD COUNT 3.82 10^6/uL (4.30-6.10); WHITE BLOOD COUNT 7.8 10^3/uL (4.0-10.0)
[2018-10-17] MEDS: PIPERACILLIN/TAZOBACTAM SOD 3.375 GM in D5W MINI-BAG PLUS 50 ML IV SCH ×3 (11:09→22:45)
[2018-10-17] MEDS: KETOROLAC 30 MG/ML VIAL (J1885) IV PRN ×2 (11:09→21:10)
[2018-10-17 14:00] VITALS: BP 138/66
--- NOTE | 2018-10-17 18:47 | CR.PDOC ---
General Date of Consultation: Oct 17, 2018 Consultation Primary physician/ hospitalist: Dr. Smith Reason for consult: Abnormal LFTs. RUQ pain. HPI: -- 58year old male patient with PMH of DM type-2, HTN, HLD, S/p abdominal hernia repair came to ER for Abdominal pain in RUQ. GI called for the same. Patient reports the symptoms initially started couple of months ago when he was seen in [facility] for similar abdominal pain when he was treated with antibiotics for cholecystitis, also suspected CHF, Now patient recurrent sever abdominal pain in RUQ associated with nausea, and loss of appetite. Patient was planned for elective cholecystectomy and was noted to have worsening bilirubin levels. Pertinent negative GI symptoms: Patient denies fever, sick contacts, recent travel, diarrhea, abdominal pain, early satiety or unintentional weight loss. No history of hematemesis, melena or hematochezia. Patient reports regular bowel movements. Review of Systems: GI: as stated above CVS: No chest pain, No palpitations, No leg swelling. RS: No Shortness of breath, No Wheezing, no cough FARM SPECIALIST: No dizziness, No motor weakness, No sensory problems Hematology: No bruising, No gum bleeding, Musculoskeletal: No joint pain, ambulating well. : No hematuria, No burning sensation of the urine ENT: No ear discharge/ pain, No dysphagia. Home medications: reviewed. Antithrombotic agents - none. Medical h/o: As above. Surgical h/o: None on abdomen. Social h/o: Alcohol- 4-6 drinks/week , smoking denies, IVDA/ drugs denies . Family h/o of GI cancers - None Prior Endoscopies: When, who, if remember- findings --- EGD & colonoscopy: had one in [facility]. Prior GI evaluations: [ ] Exam: Vitals: reviewed General: Alert and oriented x 3, not in distress HEENT: NO pallor, no icterus. Normal oropharynx, NO cervical lymph nodes. Chest: symmetric with bilateral clear air entry, CVS: S1, S2 heard, normal, no murmurs . Abdomen: non-distended, obese, soft, tenderness in RUQ, no palpable masses, normal bowel sounds heard. Rectal exam: Patient refused. Extremities: no pedal edema, pulses palpable. compression stocking in the legs. FARM SPECIALIST: no focal motor or sensory deficits. Moves all extremities Skin: no rash. Labs: reviewed. Imaging: reviewed. Impression: - Chronic cholecystitis with elevated liver enzymes and bilirubin needs further evaluation. DDx secondary to chronic cholecystitis vs need to rule out CBD stones. Recommendations: - Patient educated about the test results, possible differential diagnoses and All questions answered. - Consider MRI/ MRCP for evaluation of CBD. - Diet as tolerated. - Antibiotics as per surgery. - Based on MRI, clinical course and labs will plan for ERCP tomorrow. - The procedure, indications, risks ( Acute pancreatitis and its complications, bleeding, perforation, infection, hypotension, respiratory depression, allergy, need for endotracheal intubation, surgery, colostomy, cardiac arrest, even ), benefits, limitations (e.g., missing a lesion), and all other alternatives (including no intervention) were explained to the patient who understood and agreed for the procedure. - NPO after mid night. Can have clear liquid diet until 8 AM. Plan of care discussed with patient and primary team. Patient verbalized understanding and agreed with the plan. Vital Signs/I&O Vital Signs Date Time Temp Pulse Resp B/P (MAP) Pulse Ox O2 Delivery O2 Flow Rate FiO2 10/17/18 18:11 19 10/17/18 14:00 97.3 50 138/66 (90) 97 10/17/18 04:09 Room Air I&O- Last 24 Hours up to 6 AM 10/17/18 06:00 Intake Total 1145 ml Output Total 0 ml Balance 1145 ml Laboratory Data CBC/BMP Laboratory Tests 10/16/18 20:50 Red Blood Count 4.27 L, Mean Corpuscular Volume 94.8, Mean Corpuscular Hemoglobin 33.7 H, Mean Corpuscular Hemoglobin Concent 35.6, Red Cell Distribut ion Width 13.8, Neutrophils (%) (Auto) 81.7 H, Lymphocytes (%) (Auto) 8.3 L, Monocytes (%) (Auto) 9.2 H, Eosinophils (%) (Auto) 0.0, Basophils (%) (Auto) 0.2, Neutrophils # (Auto) 8.2, Lymphocytes # (Auto) 0.8 L, Monocytes # (Auto) 0.9 H, Eosinophils # (Auto) 0.0, Basophils # (Auto) 0.0 10/17/18 07:58 Red Blood Count 3.82 L, Mean Corpuscular Volume 97.9 H, Mean Corpuscular H emoglobin 34.3 H, Mean Corpuscular Hemoglobin Concent 35.0, Red Cell Distribution Width 14.2 Allergies Coded Allergies: No Known Allergies (Verified , 05/30/08) Home Medications Scheduled Aspirin (Aspirin EC) 81 Mg Tab, 81 MG PO DAILY, (Reported) Bisoprolol Fumarate (Bisoprolol Fumarate) 5 Mg Tablet, 5 MG PO DAILY, (Reported) Folic Acid (Folic Acid) 1 Mg Tablet, 1 MG PO DAILY, (Reported) Methotrexate Sodium (Methotrexate) 2.5 Mg Tablet, 10 MG PO 1XWK, (Reported) THURSDAYS Rosuvastatin Calcium (Rosuvastatin Calcium) 20 Mg Tablet, 20 MG PO DAILY, (Reported) Scheduled PRN Chlorphenir/Phenyleph/Aspirin (Cynthia-[place] Plus Cold Tab Eff) 1 Each Tablet.eff, 2 TAB PO Q4H PRN for COLD SYMPTOMS, (Reported) Fexofenadine HCl (Fexofenadine HCl) 180 Mg Tablet, 180 MG PO DAILY PRN for ALLERGY SYMPTOMS, (Reported) ELIAN GAMBLE MD Oct 17, 2018 18:47
[2018-10-17 21:11] VITALS: BP 150/80
--- NOTE | 2018-10-17 21:37 | REPVR ---
EXAM: MR Abdomen Without Contrast; Liver EXAM DATE/TIME: 10/17/2018 8:25 PM CLINICAL HISTORY: 58 years old, male; Abnormal findings; Abnormal radiologic finding of the abdomen; Radiologic exam and body structure: CT, US - gb; Patient HX: Ordering requested mrcp waiting on this test to do ercp. ; Additional info: Hyperbilirubinemia TECHNIQUE: Imaging protocol: MR Abdomen without contrast. Exam focused on the liver. 3D rendering: MIP reconstructed images were created and reviewed. COMPARISON: GALLBLADDER US 07/16/2018 10:31 AM FINDINGS: Liver: There is fatty infiltration of the liver. Gallbladder and bile ducts: There is fluid along the gallbladder margin and all consistent with changes of cholecystitis. Fluid extends into the mesentery as well. The pancreas is normal in size. The common bile duct is also normal in size. There is severe thickening of the gallbladder wall also consistent with changes of cholecystitis. There may be a tiny stone in the distal end of the common bile duct. There may be a tiny stone within the cystic duct mass well. Normal-appearing kidneys. There are approximately 20 small gallstones in the dependent portion the gallbladder and neck of the gallbladder 2 mm each in size. Pancreas: The pancreatic duct is normal in size. Spleen: Normal size Kidneys and ureters: Normal-appearing kidneys. IMPRESSION: 1. There are approximately 20 small round gallstones measuring 2 mm each in the dependent portion of the gallbladder and near the neck of the gallbladder. Possible tiny stone in the cystic duct and possible tiny stone distal common bile duct. The common bile duct however is normal in size. 2. There is prominent thickening of the gallbladder wall with fluid along the margin of the gallbladder all consistent with changes of severe cholecystitis. Electronically signed by: Corey Jett On 10/17/2018 21:37:06 PM
[2018-10-17] MEDS: HumaLOG INSULIN (NovoLOG) PER UNIT SC SCH (22:19)
[2018-10-18] MEDS: PIPERACILLIN/TAZOBACTAM SOD 3.375 GM in D5W MINI-BAG PLUS 50 ML IV SCH ×4 (04:32→23:03)
[2018-10-18] MEDS: LR 1,000 ML IV SCH ×6 (04:32→18:17)
[2018-10-18 04:38] VITALS: BP 152/86
[2018-10-18] MEDS: KETOROLAC 30 MG/ML VIAL (J1885) IV PRN (06:17)
[2018-10-18] MEDS: HumaLOG INSULIN (NovoLOG) PER UNIT SC SCH ×4 (07:47→20:06)
[2018-10-18 08:00] VITALS: BP 150/80
--- NOTE | 2018-10-18 08:44 | IPNPDOC ---
Text Note Date of Service The patient was seen on 10/18/18. NOTE No acute events overnight. His abd pain is slightly improved. MRCP last evening showed possible small stones in the cystic duct and the distal CBD. Plan is for ERCP today. VSSAF NAD abd - soft, TTP appropriate, non distended labs - below a) 58y/o male with acute cholecystitis and choledocholithiasis P) NPO ERCP this afternoon plan on outpatient cholecystectomy pending the results of the ERCP and his pain being improved. Dewey Smith DO VS,Fishbone, I+O VS, Fishbone, I+O Vital Signs Date Time Temp Pulse Resp B/P (MAP) Pulse Ox O2 Delivery O2 Flow Rate FiO2 10/18/18 04:38 97.3 56 17 152/86 (108) 97 10/17/18 04:09 Room Air I&O- Last 24 Hours up to 6 AM 10/18/18 06:00 Intake Total 3390 ml Output Total 700 ml Balance 2690 ml MIGUEL SMITH DO Oct 18, 2018 08:44
[2018-10-18 09:25] LABS: BASO % 0.2 % (0.0-1.0); EOS # 0.1 10^3/uL (0.0-0.5); EOS % 2.2 % (0.0-3.0); HEMATOCRIT 34.4 % (42.0-52.0); HEMOGLOBIN 11.9 g/dl (13.5-17.5); LYMPH # 0.9 10^3/uL (1.5-5.0); MEAN CORPUSCULAR HGB CONC 34.6 g/dl (32.0-36.5); MEAN CORPUSCULAR VOLUME 98.3 fl (80.0-96.0); MONO # 0.6 10^3/uL (0.0-0.8); MONO % 11.2 % (0.0-5.0); NEUTROPHILS # 3.8 10^3/uL (1.5-8.5); PLATELET COUNT, AUTOMATED 144 10^3/uL (150-450); WHITE BLOOD COUNT 5.4 10^3/uL (4.0-10.0)
[2018-10-18] MEDS: FOLIC ACID 1 MG TAB PO SCH (09:27)
[2018-10-18] MEDS: BISOPROLOL FUMARATE 5 MG TAB PO SCH (09:27)
[2018-10-18 10:02] LABS: ALBUMIN 2.9 GM/DL (3.2-5.2); BILIRUBIN,DIRECT 0.7 MG/DL (0.0-0.2); BILIRUBIN,TOTAL 1.6 MG/DL (0.2-1.0); CREATININE FOR GFR 1.38 MG/DL (0.70-1.30); GLOMERULAR FILTRATION RATE 56.1 (>56); POTASSIUM SERUM 3.6 MEQ/L (3.5-5.1); TOTAL PROTEIN 6.6 GM/DL (6.4-8.2)
--- NOTE | 2018-10-18 12:20 | IPNPDOC ---
Text Note Date of Service The patient was seen on 10/18/18. NOTE Subjective: Feels well, was walking from cleaning up in bathroom without complaints, looking forward to his procedure this afternoon. ROS: Pertinent negative: No subjective fever, chills, rigors, worsening abdominal pain, nausea, emesis Pertinent positive: continues to have abdominal discomfort Review of 12 point review of systems was otherwise negative except for the noted above Objective: Vitals: Please see below General: No acute distress HEENT: Anicteric sclerae, no pallor, MMM Pulm: CTAB CVS: S1, S2, normal, no murmurs. Abdomen: obese, normoactive bowel sounds, soft, persisting tenderness in RUQ with no palpable masses Extremities: WWP, no pedal edema ART PSYCHOTHERAPIST: No noted focal motor or sensory deficits and normal gait Skin: no rash, no jaundice Labs: see below Imaging: reviewed. 10/17/2018 MRI abomen without contrast: 1. There are approximately 20 small round gallstones measuring 2 mm each in the dependent portion of the gallbladder and near the neck of the gallbladder. Possible tiny stone in the cystic duct and possible tiny stone distal common bile duct. The common bile duct however is normal in size. 2. There is prominent thickening of the gallbladder wall with fluid along the margin of the gallbladder all consistent with changes of severe cholecystitis. Assessment: 58-year-old man with chronic hypertension, diabetes, dyslipidemia, and GERD who was admitted for management of acute cholecystitis with initial plan for a lap beau managed by surgery with medicine initially consulted for preop evaluation, whose course is now complicated by persistent elevated liver enzymes and rising bilirubin concerning for CBD stones and therefore lap beau now held pending an ERCP today. Recommendations: - Agree with current management per GI and surgery for investigation of possibility of biliary tree stones and empiric antibiotics - Will continue to follow. Thank you for the consultation. VS,Jere, I+O VS, Nenae, I+O Laboratory Tests 10/18/18 09:06 Red Blood Count 3.50 L, Mean Corpuscular Volume 98.3 H, Mean Corpuscular Hemoglobin 34.0 H, Mean Corpuscular Hemoglobin Concent 34.6, Red Cell Distribu tion Width 14.0, Neutrophils (%) (Auto) 70.0 H, Lymphocytes (%) (Auto) 16.0 L, Monocytes (%) (Auto) 11.2 H, Eosinophils (%) (Auto) 2.2, Basophils (%) (Auto) 0.2, Neutrophils # (Auto) 3.8, Lymphocytes # (Auto) 0.9 L, Monocytes # (Auto) 0.6, Eosinophils # (Auto) 0.1, Basophils # (Auto) 0.0 Vital Signs Date Time Temp Pulse Resp B/P (MAP) Pulse Ox O2 Delivery O2 Flow Rate FiO2 10/18/18 09:27 56 150/80 10/18/18 08:00 98.4 18 96 10/17/18 04:09 Room Air I&O- Last 24 Hours up to 6 AM 10/18/18 06:00 Intake Total 3390 ml Output Total 700 ml Balance 2690 ml MASSIMO CLARK MD Oct 18, 2018 12:20
[2018-10-18] MEDS ORDERED: ISOVUE-300 61% 50ML VIAL (Q9967) As Ordered ONE (13:33)
[2018-10-18] MEDS ORDERED: ROCURONIUM BROMIDE 50 MG/5 ML VIAL As Ordered ONE (13:37)
[2018-10-18] MEDS ORDERED: LIDOCAINE 2% INJ 100 MG/5 ML SDV (FOR ANES.) As Ordered ONE (13:37)
[2018-10-18] MEDS ORDERED: PROPOFOL 200 MG/20 ML VIAL As Ordered ONE ×2 (13:37→14:25)
[2018-10-18] MEDS ORDERED: SUGAMMADEX SODIUM 500 MG/5 ML VIAL (BRIDION) As Ordered ONE (13:37)
[2018-10-18] MEDS ORDERED: ONDANSETRON 4MG/2ML VIAL (J2405) As Ordered ONE (13:38)
[2018-10-18] MEDS ORDERED: fentaNYL 100 MCG/2 ML INJECTION (J3010) As Ordered ONE (13:38)
[2018-10-18] MEDS ORDERED: dexameTHASONE 4 MG/ML 1ML VIAL (J1100) As Ordered ONE (13:38)
[2018-10-18] MEDS ORDERED: MIDAZOLAM INJ 2 MG/2 ML VIAL (J2250) As Ordered ONE (13:38)
[2018-10-18] MEDS ORDERED: ePHEDrine SULFATE 25 MG/5 ML(5MG/ML) SYRINGE As Ordered ONE (14:19)
[2018-10-18] MEDS ORDERED: SUCCINYLCHOLINE 100 MG/5 ML SYRINGE (J0330) As Ordered ONE (14:30)
--- NOTE | 2018-10-18 15:49 | ROOR ---
Patient Name: Slick Reeves Procedure Date: 10/18/2018 1:48 PM Date of : 1960 Age: 58 Room: Main OR Gender: Male Note Status: Finalized Procedure: ERCP Indications: Common bile duct stone(s), Elevated bilirubin Providers: Boris Madison MD Referring MD: 2. Inpatient 2. Inpatient Requesting Provider: Medicines: Monitored Anesthesia Care Complications: No immediate complications. Procedure: Pre-Anesthesia Assessment: - Prior to the procedure, a History and Physical was performed, and patient medications and allergies were reviewed. The patient is competent. The risks and benefits of the procedure and the sedation options and risks were discussed with the patient. All questions were answered and informed consent was obtained. Patient identification and proposed procedure were verified by the physician, the nurse and the anesthesiologist in the procedure room. Mental Status Examination: alert and oriented. Airway Examination: normal oropharyngeal airway and neck mobility. Respiratory Examination: clear to auscultation. CV Examination: normal. Prophylactic Antibiotics: The patient does not require prophylactic antibiotics. Prior Anticoagulants: The patient has taken no previous anticoagulant or antiplatelet agents. ASA Grade Assessment: II - A patient with mild systemic disease. After reviewing the risks and benefits, the patient was deemed in satisfactory condition to undergo the procedure. The anesthesia plan was to use monitored anesthesia care (MAC). Immediately prior to administration of medications, the patient was re-assessed for adequacy to receive sedatives. The heart rate, respiratory rate, oxygen saturations, blood pressure, adequacy of pulmonary ventilation, and response to care were monitored throughout the procedure. The physical status of the patient was re-assessed after the procedure. The Duodenoscope was introduced through the mouth, and advanced to the duodenum and used to inject contrast into the bile duct. The ERCP was accomplished without difficulty. The patient tolerated the procedure well. Findings: The paperboard boxes estimator film was normal. The esophagus was successfully intubated under direct vision without detailed examination of the pharynx, larynx, and associated structures. The scope was passed under direct vision through the upper GI tract. Diffuse moderate inflammation characterized by erythema and granularity was found in the duodenal bulb and in the second portion of the duodenum. The major papilla was normal. A 0.035 inch x 260 cm straight Hydra Jagwire was passed into the biliary tree. The bile duct was then deeply cannulated over the guidewire. Contrast was injected. I personally interpreted the bile duct images. Ductal flow of contrast was adequate. Image quality was adequate. Contrast extended to the entire biliary tree. The middle third of the main bile duct was diffusely dilated, acquired. The largest diameter was 8 mm. Biliary sphincterotomy was made with a monofilament traction (standard) sphincterotome using ERBE electrocautery. There was no post-sphincterotomy bleeding. To discover objects, the biliary tree was swept with a 9 mm balloon starting at the bifurcation. Sludge was swept from the duct. One 8.5 Fr by 7 cm plastic stent with a single external flap and a single internal flap was placed into the common bile duct. Bile flowed through the stent. The stent was in good position. Occlusion cholangiogram at the end of the procedure did not show any residual filling defects. Pancreatic duct was neither cannulated nor opacified. Impression: - Duodenitis. - The major papilla appeared normal. - The middle third of the main bile duct was dilated, acquired. - A biliary sphincterotomy was performed. - The biliary tree was swept and sludge was found. - One plastic stent was placed into the common bile duct. Recommendation: - [facility]. - Patient has a contact number available for emergencies. The signs and symptoms of potential delayed complications were discussed with the patient. Return to normal activities tomorrow. Written discharge instructions were provided to the patient. - Avoid aspirin and nonsteroidal anti-inflammatory medicines. - Clear liquid diet for 1 day, then advance as tolerated to resume previous diet. - Use Prilosec (omeprazole) 40 mg PO Daily - to be taken reformatory attendant on empty stomach. - Return to this GI lab for stent removal at UGI endoscopy in 6 weeks. - Return to GI clinic in [facility] (address [address], [address], [place], [facility]) in 4 -- 6 weeks. Please call GI clinic @ [phone] for apppointment date and time. - Return to primary care physician. Boris Madison MD Boris Madison MD 10/18/2018 3:49:36 PM Electronically signed by Boris Madison MD Number of Addenda: 0 Note Initiated On: 10/18/2018 1:48 PM Estimated Blood Loss: Estimated blood loss was minimal.
[2018-10-18] MEDS ORDERED: ONDANSETRON 4MG/2ML VIAL (J2405) IV PRN (16:00)
[2018-10-18] MEDS ORDERED: LR 1,000 ML IV SCH (16:00)
[2018-10-18] MEDS ORDERED: PERCOCET 5MG/325MG TAB PO PRN (16:00)
[2018-10-18] MEDS ORDERED: fentaNYL 100 MCG/2 ML INJECTION (J3010) IV PRN (16:00)
[2018-10-18 16:30] VITALS: BP 158/84
[2018-10-18 17:00] VITALS: BP 162/78
[2018-10-18] MEDS ORDERED: PANTOPRAZOLE 40MG INJ (PROTONIX) (C9113) IV ONE (17:00)
[2018-10-18 18:00] VITALS: BP 160/90
--- NOTE | 2018-10-18 18:19 | REP ---
C-ARM VIEWS DURING ERCP: Multiple C-ARM views are performed during ERCP. Common bile duct is catheterized and contrast partially opacities the common bile duct and central intrahepatic ducts. These do not appear to be dilated. Catheter manipulation is performed. A stent is placed in the distal common bile duct. 1 minute and 3 seconds of fluoroscopy time is utilized. Electronically Signed by Miki [facility] MD 10/19/2018 10:51 A
[2018-10-18 21:00] VITALS: BP 130/60
[2018-10-19] VITALS (9 sets, daily range): BP systolic 160–232; BP diastolic 77–124
[2018-10-19] MEDS: LR 1,000 ML IV SCH (02:44)
[2018-10-19] MEDS: KETOROLAC 30 MG/ML VIAL (J1885) IV PRN (03:56)
[2018-10-19] MEDS: PIPERACILLIN/TAZOBACTAM SOD 3.375 GM in D5W MINI-BAG PLUS 50 ML IV SCH ×4 (04:52→23:13)
[2018-10-19] MEDS: MORPHINE 4 MG/ML 1ML VIAL/SYRINGE (J2270) IV PRN ×3 (04:52→10:31)
[2018-10-19] MEDS: OMEPRAZOLE 20 MG CAP PO SCH (06:25)
[2018-10-19] MEDS: BISOPROLOL FUMARATE 5 MG TAB PO SCH (07:48)
[2018-10-19] MEDS: FOLIC ACID 1 MG TAB PO SCH (07:48)
[2018-10-19] MEDS: HumaLOG INSULIN (NovoLOG) PER UNIT SC SCH ×4 (07:48→21:00)
[2018-10-19 08:27] LABS: HEMATOCRIT 33.3 % (42.0-52.0); HEMOGLOBIN 11.7 g/dl (13.5-17.5); MEAN CORPUSCULAR HGB CONC 35.1 g/dl (32.0-36.5); MEAN CORPUSCULAR VOLUME 96.8 fl (80.0-96.0); PLATELET COUNT, AUTOMATED 170 10^3/uL (150-450); RED BLOOD COUNT 3.44 10^6/uL (4.30-6.10); WHITE BLOOD COUNT 5.5 10^3/uL (4.0-10.0)
--- NOTE | 2018-10-19 08:53 | REP ---
Abdomen series: Three views obtained portably. History: Abdominal distension. Comparison portable chest x-ray July 16, 2018. Findings: Semi-erect AP chest view shows mildly prominent heart unchanged. The lungs are well inflated and clear. No free air is seen. No infiltrate is noted. Portably obtained supine views of the abdomen demonstrate a biliary stent in place in the right upper quadrant. There are two loops of mildly dilated air-filled small bowel in the left mid abdomen which are nonspecific. There is air in the transverse and descending segments of the colon without colonic distension. Psoas margins are intact. There is some vascular calcification in the pelvis. Impression: Nonspecific dilated air-filled small bowel loops in the left mid abdomen. Biliary stent in the right upper quadrant. Otherwise negative. Electronically Signed by Tarun Tanner MD 10/19/2018 12:46 P
[2018-10-19 09:17] LABS: ALBUMIN 3.1 GM/DL (3.2-5.2); ALT/SGPT 36 U/L (12-78); BILIRUBIN,TOTAL 1.3 MG/DL (0.2-1.0); BLOOD UREA NITROGEN 19 MG/DL (7-18); CALCIUM LEVEL 8.9 MG/DL (8.5-10.1); CARBON DIOXIDE LEVEL 25 MEQ/L (21-32); CHLORIDE LEVEL 103 MEQ/L (98-107); CREATININE FOR GFR 1.23 MG/DL (0.70-1.30); GLOMERULAR FILTRATION RATE > 60.0 (>56); GLUCOSE, FASTING 205 MG/DL (70-100); LIPASE 25755 U/L (73-393); POTASSIUM SERUM 3.8 MEQ/L (3.5-5.1); SODIUM LEVEL 137 MEQ/L (136-145); TOTAL PROTEIN 6.8 GM/DL (6.4-8.2)
--- NOTE | 2018-10-19 09:26 | IPNPDOC ---
Text Note Date of Service The patient was seen on 10/19/18. NOTE Overnight he has developed 10/10 abd pain throughout the abdomen. He felt very good last night after his ERCP and the pain was almost completely gone. Now this am he feels distended with severe abd pains throughout the abdomen. VSSAF NAD abd - soft, distended, TTP diffuse with peritoneal signs throughout labs - below lipase - 25,000 a) 58y/o male with acute cholecystitis and choledocholithiasis POD#1 s/p ERCP post-ERCP pancreatitis P) NPO pain control abx ambulate IVF will advance diet once pancreatitis resolves Dewey Smith DO VS,Fishbone, I+O VS, Fishbone, I+O Laboratory Tests 10/19/18 08:18 Red Blood Count 3.44 L, Mean Corpuscular Volume 96.8 H, Mean Corpuscular Hemoglobin 34.0 H, Mean Corpuscular Hemoglobin Concent 35.1, Red Cell Distribution Width 13.4, Calcium Level 8.9, Aspartate Amino Transf (AST/SGOT) 32 , Alanine Aminotransferase (ALT/SGPT) 36, Alkaline Phosphatase 79, Total Bilirubin 1.3 H, Total Protein 6.8, Albumin 3.1 L Vital Signs Date Time Temp Pulse Resp B/P (MAP) Pulse Ox O2 Delivery O2 Flow Rate FiO2 10/19/18 07:59 20 10/19/18 07:48 70 202/92 10/19/18 06:49 96.6 95 10/18/18 15:45 2 10/17/18 04:09 Room Air I&O- Last 24 Hours up to 6 AM 10/19/18 06:00 Intake Total 5660 ml Output Total 2675 ml Balance 2985 ml MIGUEL SMITH DO Oct 19, 2018 09:25
[2018-10-19] MEDS: NS 1,000 ML IV SCH ×3 (09:32→21:24)
[2018-10-19] MEDS ORDERED: ISOVUE-370 76% 100ML VIAL (Q9967) As Ordered ONE (10:26)
--- NOTE | 2018-10-19 11:39 | REP ---
CT ABDOMEN AND PELVIS WITH IV BUT WITHOUT ORAL CONTRAST: HISTORY: Abdomen pain. Comparison CT study October 16, 2018. CT CONTRAST DOSE: 100 mL of intravenous Isovue 370. CT FINDINGS: Digital preliminary director of instruction radiograph today demonstrates a common bile duct stent in place. There are air-filled loops of central abdominal small bowel. Bowel gas pattern is otherwise unremarkable. The lung bases show mild plate-like atelectasis in the left lower lobe but are otherwise clear. There is mild diffuse fatty infiltration again seen in the liver. No focal liver lesion is seen. Gallbladder is moderately distended. There is pericholecystic fluid and wall thickening. There are gravel-like calculi in the dependent portion of the gallbladder. The findings are compatible with acute cholecystitis and are unchanged from the October 16, 2018 prior study. No pancreatic abnormality is observed. There is a small low density 1.9 cm nodule in the right adrenal gland unchanged from the comparison CT. This is also unchanged from a prior CT study July 14, 2017 and is consistent with an adrenal adenoma. No retroperitoneal mass or adenopathy is seen. The kidneys enhance symmetrically. Small and large bowel loops are unremarkable in the abdomen and pelvis. There is no evidence of free intraperitoneal air. Mild ileus pattern with central air-filled small bowel loops as seen on the director of instruction view. IMPRESSION: Fatty infiltration of the liver. Distended thick-walled gallbladder containing gravel like calculi with pericholecystic edema consistent with acute cholecystitis unchanged. Fatty infiltration of the liver. Mild ileus. Electronically Signed by Tarun Tanner MD 10/19/2018 01:01 P
[2018-10-19] MEDS ORDERED: MORPHINE 4 MG/ML 1ML VIAL/SYRINGE (J2270) IV PRN (12:00)
[2018-10-19] MEDS ORDERED: LABETALOL 100 MG TAB PO ONE (15:15)
[2018-10-19] MEDS ORDERED: **hydrALAZINE** 10 MG TAB PO ONE (16:00)
[2018-10-19] MEDS: HYDROMORPHONE HCL 0.5 MG/ 0.5 ML SYRINGE (J1170 PER 1) IV PRN ×2 (17:39→23:14)
[2018-10-19] MEDS: **hydrALAZINE** 10 MG TAB PO SCH (21:24)
--- NOTE | 2018-10-20 00:11 | IPNPDOC ---
Text Note Date of Service The patient was seen on 10/20/18. NOTE Interim events 11/16 pain this afternoon, barely responsive to morphine, switched to dilaudid Hypertensive emergency to >200 SBP sustained, with a pulse of 54, started on hydralazine Transferred to PCU ROS: Pertinent negative: No subjective fever, chills, rigors, nausea, emesis Pertinent positive: worsening abdominal pain, very severe Review of 12 point review of systems was otherwise negative except for the noted above Objective: Vitals: Please see below General: No acute distress HEENT: Anicteric sclerae, no pallor, MMM Pulm: CTAB CVS: S1, S2, normal, no murmurs. 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 10/17/2018 MRI abomen without contrast: 1. There are approximately 20 small round gallstones measuring 2 mm each in the dependent portion of the gallbladder and near the neck of the gallbladder. Possible tiny stone in the cystic duct and possible tiny stone distal common bile duct. The common bile duct however is normal in size. 2. There is prominent thickening of the gallbladder wall with fluid along the margin of the gallbladder all consistent with changes of severe cholecystitis. Assessment: 58-year-old man with chronic hypertension, diabetes, dyslipidemia, and GERD who was admitted for management of acute cholecystitis with initial plan for a lap beau managed by surgery with medicine initially consulted for preop evaluation, whose course is now complicated by persistent elevated liver enzymes and rising bilirubin concerning for CBD stones and therefore lap beau now s/p ERCP but now with rising lipase and severe pain c/w acute pancreatitis. Recommendations: Pancreatitis: -Fluids @ 200cc/hr -NPO -Dilaudid for pain management Hypertensive urgency: -Likely 2/2 pain -hydralazine to reduce to SBP <170 -Telemetry VS,Jere, I+O VS, Fishbone, I+O Laboratory Tests 10/19/18 08:18 Red Blood Count 3.44 L, Mean Corpuscular Volume 96.8 H, Mean Corpuscular Hemoglobin 34.0 H, Mean Corpuscular Hemoglobin Concent 35.1, Red Cell Distribution Width 13.4, Calcium Level 8.9, Aspartate Amino Transf (AST/SGOT) 32, Alanine Aminotransferase (ALT/SGPT) 36, Alkaline Phosphatase 79, Total Bilirubin 1.3 H, Total Protein 6.8, Albumin 3.1 L Vital Signs Date Time Temp Pulse Resp B/P (MAP) Pulse Ox O2 Delivery O2 Flow Rate FiO2 10/19/18 23:14 16 10/19/18 21:24 160/80 10/19/18 20:00 97.6 51 98 10/18/18 15:45 2 10/17/18 04:09 Room Air I&O- Last 24 Hours up to 6 AM 10/20/18 06:00 Output Total 2250 ml Balance -2250 ml MASSIMO CLARK MD Oct 20, 2018 00:11
[2018-10-20] MEDS: NS 1,000 ML IV SCH ×2 (03:39→09:55)
[2018-10-20 04:00] VITALS: BP 168/82
[2018-10-20] MEDS: **hydrALAZINE** 10 MG TAB PO SCH ×3 (04:42→20:35)
[2018-10-20] MEDS: PIPERACILLIN/TAZOBACTAM SOD 3.375 GM in D5W MINI-BAG PLUS 50 ML IV SCH ×3 (04:42→17:16)
[2018-10-20] MEDS: OMEPRAZOLE 20 MG CAP PO SCH (07:08)
[2018-10-20 08:00] VITALS: BP 180/80
[2018-10-20] MEDS: HumaLOG INSULIN (NovoLOG) PER UNIT SC SCH ×4 (08:25→20:07)
[2018-10-20] MEDS: FOLIC ACID 1 MG TAB PO SCH (09:14)
[2018-10-20] MEDS: BISOPROLOL FUMARATE 5 MG TAB PO SCH (09:14)
[2018-10-20 12:00] VITALS: BP 130/68
--- NOTE | 2018-10-20 12:11 | IPNPDOC ---
Text Note Date of Service The patient was seen on 10/20/18. NOTE No acute events overnight. Pain is all gone, and blood pressure is under control. VSSAF NAD abd - soft, less distended, NT labs - below lipase - 25,000>4000 a) 58y/o male with acute cholecystitis and choledocholithiasis POD#2 s/p ERCP post-ERCP pancreatitis resolving P) clq diet pain control abx ambulate IVF if tolerating clq diet will advance and dc home tomorrow Dewey Smith DO VS,Fishbone, I+O VS, Fishbone, I+O Vital Signs Date Time Temp Pulse Resp B/P (MAP) Pulse Ox O2 Delivery O2 Flow Rate FiO2 10/20/18 11:56 178/80 10/20/18 09:14 58 10/20/18 08:00 98.6 18 97 10/18/18 15:45 2 10/17/18 04:09 Room Air I&O- Last 24 Hours up to 6 AM 10/20/18 05:59 Intake Total 2290 ml Output Total 2825 ml Balance -535 ml MIGUEL SMITH DO Oct 20, 2018 12:11
[2018-10-20 12:35] LABS: BLOOD UREA NITROGEN 14 MG/DL (7-18); CALCIUM LEVEL 8.9 MG/DL (8.5-10.1); CARBON DIOXIDE LEVEL 25 MEQ/L (21-32); CHLORIDE LEVEL 105 MEQ/L (98-107); CREATININE FOR GFR 0.98 MG/DL (0.70-1.30); GLOMERULAR FILTRATION RATE > 60.0 (>56); GLUCOSE, FASTING 116 MG/DL (70-100); SODIUM LEVEL 139 MEQ/L (136-145)
[2018-10-20 20:00] VITALS: BP 188/92
[2018-10-21] VITALS (7 sets, daily range): BP systolic 140–196; BP diastolic 70–94
[2018-10-21] MEDS: PIPERACILLIN/TAZOBACTAM SOD 3.375 GM in D5W MINI-BAG PLUS 50 ML IV SCH ×5 (00:17→22:51)
[2018-10-21] MEDS ORDERED: **hydrALAZINE** 10 MG TAB PO ONE (01:30)
[2018-10-21] MEDS: **hydrALAZINE** 10 MG TAB PO SCH ×4 (01:35→20:45)
[2018-10-21 05:56] LABS: HEMATOCRIT 33.1 % (42.0-52.0); HEMOGLOBIN 11.2 g/dl (13.5-17.5); MEAN CORPUSCULAR HEMOGLOBIN 32.4 pg (27.0-33.0); MEAN CORPUSCULAR HGB CONC 33.8 g/dl (32.0-36.5); MEAN CORPUSCULAR VOLUME 95.7 fl (80.0-96.0); PLATELET COUNT, AUTOMATED 178 10^3/uL (150-450); RED BLOOD COUNT 3.46 10^6/uL (4.30-6.10); WHITE BLOOD COUNT 4.7 10^3/uL (4.0-10.0)
[2018-10-21 06:15] LABS: BLOOD UREA NITROGEN 8 MG/DL (7-18); CALCIUM LEVEL 8.7 MG/DL (8.5-10.1); CARBON DIOXIDE LEVEL 25 MEQ/L (21-32); CHLORIDE LEVEL 104 MEQ/L (98-107); GLOMERULAR FILTRATION RATE > 60.0 (>56); GLUCOSE, FASTING 132 MG/DL (70-100); POTASSIUM SERUM 3.5 MEQ/L (3.5-5.1); SODIUM LEVEL 135 MEQ/L (136-145)
[2018-10-21] MEDS: OMEPRAZOLE 20 MG CAP PO SCH (06:53)
[2018-10-21] MEDS: HumaLOG INSULIN (NovoLOG) PER UNIT SC SCH ×4 (08:52→20:12)
[2018-10-21] MEDS: FOLIC ACID 1 MG TAB PO SCH (08:52)
[2018-10-21] MEDS: BISOPROLOL FUMARATE 5 MG TAB PO SCH (08:53)
--- NOTE | 2018-10-21 19:32 | IPNPDOC ---
Text Note Date of Service The patient was seen on 10/21/18. NOTE Interim events - Mr. Reeves is doing good today. He was transitioned from clears to full liquid at lunch which he tolerated well and will be advanced for dinner. - We also stopped the fluids ROS: Review of 12 point review of systems was negative today. Objective: Vitals: Please see below General: No acute distress HEENT: Anicteric sclerae, no pallor, MMM Pulm: CTAB CVS: S1, S2, normal, no murmurs. 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 Assessment: 58-year-old man with chronic hypertension, diabetes, dyslipidemia, and GERD who was admitted for management of acute cholecystitis with initial plan for a lap beau managed by surgery with medicine initially consulted for preop evaluation, whose course was complicated by persistent elevated liver enzymes and rising bilirubin concerning for CBD stones and therefore lap beau was put on hold and he had an ERCP that was c/b transient pancreatitis is now resolving. He is doing very well with no pain and with ongoing advancement of his diet with anticipation of discharge home tomorrow if he tolerates his diet this evening. Recommendations: Pancreatitis: -dc fluids -with ongoing diet advancement -Dc'd all pain meds as pain has resolved -continues on pip/tazo, will dc in morning to 3d of PO cipro/flagyl to complete a 7d course Hypertensive urgency: was 2/2 pain, resolved -remains on hydral 20 Q8 -continue home bisoprolol -to start amlodipine 10 tomorrow AM and stop hydral for HTN Dispo: likely home tomorrow VS,Fishbone, I+O VS, Fishbone, I+O Laboratory Tests 10/21/18 05:13 Red Blood Count 3.46 L, Mean Corpuscular Volume 95.7, Mean Corpuscular Hemoglobin 32.4, Mean Corpuscular Hemoglobin Concent 33.8, Red Cell Distribution Width 13.4, Calcium Level 8.7 Vital Signs Date Time Temp Pulse Resp B/P (MAP) Pulse Ox O2 Delivery O2 Flow Rate FiO2 10/21/18 16:07 98.2 59 18 160/70 (100) 100 10/18/18 15:45 2 10/17/18 04:09 Room Air l I&O- Last 24 Hours up to 6 AM 10/21/18 05:59 Intake Total 2060 ml Output Total 4550 ml Balance -2490 ml MASSIMO CLARK MD Oct 21, 2018 19:32
[2018-10-22] VITALS: BP 178/75
[2018-10-22 01:07] VITALS: BP 160/70
[2018-10-22 04:00] VITALS: BP 178/90
[2018-10-22] MEDS: **hydrALAZINE** 10 MG TAB PO SCH (04:05)
[2018-10-22] MEDS: PIPERACILLIN/TAZOBACTAM SOD 3.375 GM in D5W MINI-BAG PLUS 50 ML IV SCH (04:51)
[2018-10-22 05:37] LABS: HEMATOCRIT 32.7 % (42.0-52.0); HEMOGLOBIN 11.2 g/dl (13.5-17.5); MEAN CORPUSCULAR HEMOGLOBIN 32.7 pg (27.0-33.0); MEAN CORPUSCULAR HGB CONC 34.3 g/dl (32.0-36.5); MEAN CORPUSCULAR VOLUME 95.3 fl (80.0-96.0); PLATELET COUNT, AUTOMATED 184 10^3/uL (150-450); RED BLOOD COUNT 3.43 10^6/uL (4.30-6.10); WHITE BLOOD COUNT 4.5 10^3/uL (4.0-10.0)
[2018-10-22 05:54] LABS: ALBUMIN 2.8 GM/DL (3.2-5.2); ALT/SGPT 33 U/L (12-78); BILIRUBIN,TOTAL 0.7 MG/DL (0.2-1.0); BLOOD UREA NITROGEN 11 MG/DL (7-18); CALCIUM LEVEL 8.5 MG/DL (8.5-10.1); CARBON DIOXIDE LEVEL 25 MEQ/L (21-32); CHLORIDE LEVEL 105 MEQ/L (98-107); CREATININE FOR GFR 1.16 MG/DL (0.70-1.30); GLOMERULAR FILTRATION RATE > 60.0 (>56); GLUCOSE, FASTING 191 MG/DL (70-100); POTASSIUM SERUM 3.6 MEQ/L (3.5-5.1); SODIUM LEVEL 135 MEQ/L (136-145); TOTAL PROTEIN 6.4 GM/DL (6.4-8.2)
[2018-10-22] MEDS: OMEPRAZOLE 20 MG CAP PO SCH (06:09)
[2018-10-22 08:00] VITALS: BP 182/92
[2018-10-22] MEDS: FOLIC ACID 1 MG TAB PO SCH (08:23)
[2018-10-22] MEDS: HumaLOG INSULIN (NovoLOG) PER UNIT SC SCH (08:23)
[2018-10-22] MEDS: BISOPROLOL FUMARATE 5 MG TAB PO SCH (08:23)
[2018-10-22] MEDS ORDERED: metroNIDAZOLE (FLAGYL) 500 MG TAB PO SCH ×2 (09:00→21:00)
[2018-10-22] MEDS ORDERED: OMEP-218 PO (10:21)
[2018-10-22] MEDS ORDERED: CIPR-249 PO (10:21)
[2018-10-22] MEDS ORDERED: AMLO10TA5 PO (10:21)
[2018-10-22] MEDS ORDERED: FLAG500T PO (10:21)
--- NOTE | 2018-10-22 10:28 | DS.PDOC ---
Discharge Summary General Date of Admission Oct 17, 2018 at 01:55 Date of Discharge 10/22/2018 Attending Physician: MASSIMO CLARK MD Specialist/Consultants Involve: MIGUEL HAN DO Specialist/Consultants Involve Dr. Boris Madison Discharge Summary PROCEDURES PERFORMED DURING STAY: ERCP with CBD stent placement on 10/18/2018 ADMITTING DIAGNOSES: 1. Cholecystitis DISCHARGE DIAGNOSES: 1. Cholecystitis 2. Choledocholithiasis 3. Transient pancreatitis s/p ERCP 4. Diabetes mellitus 5. Hypertension 6. Hyperlipidemia COMPLICATIONS/CHIEF COMPLAINT: Cholecystitis. HISTORY OF PRESENT ILLNESS: 58-year-old man with chronic hypertension, diabetes, dyslipidemia, and GERD who presented with acute abdominal pain and was admitted for a lap cholecystectomy managed by surgery with medicine consult for preop evaluation. HOSPITAL COURSE: 58-year-old man with chronic hypertension, diabetes, dyslipidemia, and GERD who was admitted for management of acute cholecystitis with initial plan for a lap beau managed by surgery with medicine initially consulted for preop evaluation, whose course was complicated by persistent librado vated liver enzymes and rising bilirubin concerning for CBD stones for which lap beau was deferred and GI consulted. He had MRI of his abdomen that confirmed some stones in the CBD and an ERCP was performed on 10/18 during which a stent was placed in the CBD. His post ERCP course was complicated by a transient pancreatitis with severe abdominal pain and associated hypertension. He remained NPO with aggressive fluid repletion and his symptoms resolved and lipase sharply reduced. His hypertension was managed with TID hydralazine in addition to his home bisoprolol mildly improved with pain management and resolution of his pain. It did however is significant and persistent and so he was started on amlodipine 10mg once daily in addition to his home bisoprolol for discharge, and is to follow up on this matter with his PCP. His diet was advanced and he was is now on a low fat diet and is now being discharged home and will follow up with surgery as an outpatient for a lap beau once this episode resolves as well as GI follow up and PCP follow up. Of note, he was treated with zosyn throughout is stay and will now be discharged with 2 days worth of cipro/flagyl to complete a course of 7 days. DISCHARGE MEDICATIONS: Please see below. ALLERGIES: Please see below. PHYSICAL EXAMINATION ON DISCHARGE: VITAL SIGNS: Please see below. General: No acute distress HEENT: Anicteric sclerae, no pallor, MMM Pulm: CTAB CVS: S1, S2, normal, no murmurs. Abdomen: obese, normoactive bowel sounds, soft, non tender abdomen today Extremities: WWP, no pedal edema DIGITAL FIELD SERVICE TECHNICIAN: No noted focal motor or sensory deficits and normal gait Skin: no rash, no jaundice LABORATORY DATA: Please see below. IMAGIN10/16/2018: CT abdomen: 1. Acute cholecystitis. 2. Enlarged, fatty liver. 10/17: RUQ abdominal ultrasound: IMPRESSION: 1. Acute cholecystitis. 2. Enlarged, fatty liver. 10/17: MRI abdomen without contrast: IMPRESSION: 1. There are approximately 20 small round gallstones measuring 2 mm each in the dependent portion of the gallbladder and near the neck of the gallbladder. Possible tiny stone in the cystic duct and possible tiny stone distal common bile duct. The common bile duct however is normal in size. 2. There is prominent thickening of the gallbladder wall with fluid along the margin of the gallbladder all consistent with changes of severe cholecystitis. 10/18: ERCP Multiple C-ARM views are performed during ERCP. Common bile duct is catheterized and contrast partially opacities the common bile duct and central intrahepatic ducts. These do not appear to be dilated. Catheter manipulation is performed. A stent is placed in the distal common bile duct. 1 minute and 3 seconds of f luoroscopy time is utilized. 10/19: Abdominal XR Nonspecific dilated air-filled small bowel loops in the left mid abdomen. Biliary stent in the right upper quadrant. Otherwise negative. CT ABDOMEN AND PELVIS WITH IV BUT WITHOUT ORAL CONTRAST: 10/20: CT abdomen with IV contrast, no oral contrast Digital preliminary senior ruby developer radiograph today demonstrates a common bile duct stent in place. There are air-filled loops of central abdominal small bowel. Bowel gas pattern is otherwise unremarkable. The lung bases show mild plate-like atelectasis in the left lower lobe but are otherwise clear. There is mild diffuse fatty infiltration again seen in the liver. No focal liver lesion is seen. Gallbladder is moderately distended. There is pericholecystic fluid and wall thickening. There are gravel-like calculi in the dependent portion of the gallbladder. The findings are compatible with acute c holecystitis and are unchanged from the October 16, 2018 prior study. No pancreatic abnormality is observed. There is a small low density 1.9 cm nodule in the right adrenal gland unchanged from the comparison CT. This is also unchanged from a prior CT study July 14, 2017 and is consistent with an adrenal adenoma. No retroperitoneal mass or adenopathy is seen. The kidneys enhance symmetrically. Small and large bowel loops are unremarkable in the abdomen and pelvis. There is no evidence of free intraperitoneal air. Mild ileus pattern with central air- filled small bowel loops as seen on the senior ruby developer view. IMPRESSION: Fatty infiltration of the liver. Distended thick-walled gallbladder containing gravel like calculi with pericholecystic edema consistent with acute cholecystitis unchanged. Fatty infiltration of the liver. Mild ileus. PROGNOSIS: Good ACTIVITY: As tolerated DIET: Low fat diet DISCHARGE PLAN: Home with GI, surgery and PCP follow up, with 2 days of cipro/flagyl DISPOSITION: Home, and may return to daily activities DISCHARGE INSTRUCTIONS: 1. Please follow up with GI and surgery within the next 2 weeks, as well as PCP follow up. Please take the cipro and flagyl for the next two days to finish off the antibiotic course. ITEMS TO FOLLOWUP ON ON OUTPATIENT: 1. resolution of pancreatitis 2. cholecystitis, pending lap beau 3. choledocholithiasis s/p stent, has GI follow up 4. Hypertension - PCP follow up. Usually well controlled on bisoprolol, but persistent hypertensive and added amlodipine to his regimen. DISCHARGE CONDITION: Good TIME SPENT ON DISCHARGE: Greater than 45 minutes. Vital Signs/I&Os Vital Signs Date Time Temp Pulse Resp B/P (MAP) Pulse Ox O2 Delivery O2 Flow Rate FiO2 10/22/18 08:23 77 178/80 10/22/18 08:00 97.8 18 98 10/18/18 15:45 2 10/17/18 04:09 Room Air I&O- Last 24 Hours up to 6 AM 10/22/18 06:00 Intake Total 1460 ml Output Total 3080 ml Balance -1620 ml Laboratory Data Labs 24H Laboratory Tests 2 10/21/18 12:10: Bedside Glucose (Misc Panel) 132H 10/21/18 17:42: Bedside Glucose (Misc Panel) 171H 10/21/18 20:02: Bedside Glucose (Misc Panel) 171H 10/22/18 04:58: Nucleated Red Blood Cells % (auto) 0.0, Anion Gap 5L, Glomerular Filtration Rate > 60.0, Blood Urea Nitrogen 11, Creatinine 1.16, Sodium Level 135L, Potassium Level 3.6, Chloride Level 105, Carbon Dioxide Level 25, Calcium Level 8.5, Aspartate Amino Transf (AST/SGOT) 22, Alanine Aminotransferase (ALT/SGPT) 33, Alkaline Phosphatase 74, Total Bilirubin 0.7, Total Protein 6.4, Albumin 2.8L, Albumin/Globulin Ratio 0.78L CBC/BMP Laboratory Tests 10/22/18 04:58 Red Blood Count 3.43 L, Mean Corpuscular Volume 95.3, Mean Corpuscular Hemoglobin 32.7, Mean Corpuscular Hemoglobin Concent 34.3, Red Cell Distribution Width 13.2, Calcium Level 8.5, Aspartate Amino Transf (AST/SGOT) 22, Alanine Aminotransferase (ALT/SGPT) 33, Alkaline Phosphatase 74, Total Bilirubin 0.7, Total Protein 6.4, Albumin 2.8 L FSBS Laboratory Tests Test 10/21/18 12:10 10/21/18 17:42 10/21/18 20:02 Range/Units Bedside Glucose (Misc Panel) 132 171 171 70-105 MG/DL Discharge Medications Scheduled Amlodipine Besylate (Amlodipine Besylate) 10 Mg Tablet, 10 MG PO DAILY Aspirin (Aspirin EC) 81 Mg Tab, 81 MG PO DAILY, (Reported) Bisoprolol Fumarate (Bisoprolol Fumarate) 5 Mg Tablet, 5 MG PO DAILY, (Reported) Ciprofloxacin HCl (Cipro) 500 Mg Tablet, 500 MG PO BID@06,18 Folic Acid (Folic Acid) 1 Mg Tablet, 1 MG PO DAILY, (Reported) Methotrexate Sodium (Methotrexate) 2.5 Mg Tablet, 10 MG PO 1XWK, (Reported) THURSDAYS Metronidazole (Flagyl) 500 Mg Tablet, 500 MG PO TID Omeprazole (Omeprazole) 20 Mg Capsule.dr, 40 MG PO DAILY@0700 Rosuvastatin Calcium (Rosuvastatin Calcium) 20 Mg Tablet, 20 MG PO DAILY, (Reported) Scheduled PRN Chlorphenir/Phenyleph/Aspirin ([place] Plus Cold Tab Eff) 1 Each Tablet.eff, 2 TAB PO Q4H PRN for COLD SYMPTOMS, (Reported) Fexofenadine HCl (Fexofenadine HCl) 180 Mg Tablet, 180 MG PO DAILY PRN for ALLERGY SYMPTOMS, (Reported) Allergies Coded Allergies: No Known Allergies (Verified , 05/30/08) MASSIMO CLARK MD Oct 22, 2018 09:44
[2018-10-22] MEDS ORDERED: amLODIPine 10 MG TAB PO SCH (10:30)
[2018-10-22 10:40] VITALS: BP 171/80
[2018-10-22 10:57] VITALS: BP 164/86
[2018-10-22] MEDS ORDERED: CIPROFLOXACIN 500 MG TAB PO SCH (18:00)
== END 2018-10-22 12:18 | disposition home or self-care (01) ==
LOC: M ED 20:24 → M ED INP 10-17 01:55 → M MS4PR 10-17 05:14 → M PCU 10-19 15:36
PROVIDERS: ADMIT Surgery; ATTEND Surgery
PROC: BF10YZZ Fluoroscopy of Bile Ducts using Other Contrast (ICD-10-PCS; 2018-10-18)
PROC: 0F798DZ Dilation of Common Bile Duct with Intraluminal Device, Via Natural or Artificial Opening Endoscopic (ICD-10-PCS; 2018-10-18)
PROC: BD19YZZ Fluoroscopy of Duodenum using Other Contrast (ICD-10-PCS; principal; 2018-10-18 13:30)
DX: K80.00 Calculus of gallbladder with acute cholecystitis without obstruction (principal); K85.90 Acute pancreatitis without necrosis or infection, unspecified; K29.80 Duodenitis without bleeding; E11.9 Type 2 diabetes mellitus without complications; E78.5 Hyperlipidemia, unspecified; I10 Essential (primary) hypertension; Z79.899 Other long term (current) drug therapy; Z79.82 Long term (current) use of aspirin; I16.0 Hypertensive urgency

== ENCOUNTER 2018-11-19 | Inpatient (IN) | payer OTHER ==
[~2018-11-19] VITALS: Ht 190.5 cm; Wt 120.1 kg
[~2018-11-19] MED LIST changes: +ALKATAB21 PO; +ALLE1TAB23 PO; +CIPR-249 PO; +FEXO-4 PO; +FLAG500T PO; +FOLI1TAB11 PO; +OMEP-218 PO
[2018-11-19] MEDS ORDERED: MORPHINE 4 MG/ML 1ML VIAL/SYRINGE (J2270) IV ONE (00:30)
[2018-11-19] MEDS ORDERED: NS 1,000 ML IV ONE (00:30)
[2018-11-19] MEDS ORDERED: METOCLOPRAMIDE INJ 10MG/2ML VIAL (J2765) IV ONE (00:30)
[2018-11-19 00:40] LABS: BASO % 0.5 % (0.0-1.0); EOS # 0.1 10^3/uL (0.0-0.5); EOS % 0.8 % (0.0-3.0); HEMATOCRIT 34.9 % (42.0-52.0); LYMPH # 1.1 10^3/uL (1.5-5.0); MEAN CORPUSCULAR HEMOGLOBIN 32.1 pg (27.0-33.0); MEAN CORPUSCULAR HGB CONC 34.4 g/dl (32.0-36.5); MEAN CORPUSCULAR VOLUME 93.3 fl (80.0-96.0); MONO # 0.5 10^3/uL (0.0-0.8); MONO % 7.5 % (0.0-5.0); NEUTROPHILS # 4.7 10^3/uL (1.5-8.5); NEUTROPHILS % 73.7 % (36.0-66.0); PLATELET COUNT, AUTOMATED 163 10^3/uL (150-450); RED BLOOD COUNT 3.74 10^6/uL (4.30-6.10); WHITE BLOOD COUNT 6.4 10^3/uL (4.0-10.0)
[2018-11-19 00:52] LABS: ALBUMIN 3.8 GM/DL (3.2-5.2); ALT/SGPT 52 U/L (12-78); BILIRUBIN,DIRECT 0.1 MG/DL (0.0-0.2); BILIRUBIN,TOTAL 0.9 MG/DL (0.2-1.0); BLOOD UREA NITROGEN 16 MG/DL (7-18); CARBON DIOXIDE LEVEL 25 MEQ/L (21-32); CHLORIDE LEVEL 100 MEQ/L (98-107); CREATININE FOR GFR 1.07 MG/DL (0.70-1.30); GLOMERULAR FILTRATION RATE > 60.0 (>56); GLUCOSE, FASTING 279 MG/DL (70-100); LIPASE 379 U/L (73-393); POTASSIUM SERUM 4.2 MEQ/L (3.5-5.1); SODIUM LEVEL 133 MEQ/L (136-145); TOTAL PROTEIN 7.3 GM/DL (6.4-8.2)
--- NOTE | 2018-11-19 02:05 | REPVR ---
PROCEDURE INFORMATION: Exam: US Abdomen Limited, Right Upper Quadrant Exam date and time: 11/19/2018 1:25 AM Clinical history: 58 years old, male; Abdominal pain; Tenderness; Right upper quadrant (ruq); Additional info: Biliary eval TECHNIQUE: Imaging protocol: Real-time ultrasound of the abdomen with image documentation. Examination was focused on the right upper quadrant. COMPARISON: GALLBLADDER US 10/17/2018 2:32 AM FINDINGS: Liver: Liver is enlarged at 19 cm and echogenic. Gallbladder: There is layering echogenic sludge in the gallbladder. Pericholecystic fluid. Gallbladder wall is thickened measuring up to 6 mm. Common bile duct: Common bile duct is upper limits of normal size at 7 mm. No calculi in the common bile duct. Pancreas: Visualized pancreas is unremarkable. Right kidney: Normal. No mass. No hydronephrosis. Portal venous: Patent portal vein. IMPRESSION: 1. Distended gallbladder with intraluminal sludge, wall thickening, and pericholecystic fluid suggesting acute cholecystitis. 2. Hepatomegaly with hepatic steatosis. Electronically signed by: Farhan Murry On 11/19/2018 02:05:05 AM
[2018-11-19] MEDS ORDERED: OMEP-218 PO (02:44)
[2018-11-19] MEDS ORDERED: AMLO10TA5 PO (02:44)
[2018-11-19] MEDS ORDERED: MORPHINE 4 MG/ML 1ML VIAL/SYRINGE (J2270) IV PRN (03:15)
[2018-11-19] MEDS ORDERED: ONDANSETRON 4MG/2ML VIAL (J2405) IV PRN (03:15)
[2018-11-19] MEDS ORDERED: PERCOCET 5MG/325MG TAB PO PRN ×2 (03:15)
[2018-11-19] MEDS ORDERED: ACETAMINOPHEN TAB 650MG DOSE (2X325MG) PO PRN (03:15)
[2018-11-19] MEDS ORDERED: KETOROLAC 30 MG/ML VIAL (J1885) IV PRN (03:15)
[2018-11-19] MEDS: AMPICILLIN SOD/SULBACTAM SOD 3 GM in D5W MINI-BAG PLUS 100 ML IV SCH ×4 (03:25→21:56)
[2018-11-19] MEDS: LR 1,000 ML IV SCH ×4 (03:44→21:57)
[2018-11-19 03:55] VITALS: BP 133/60
[2018-11-19] MEDS ORDERED: DEXTROSE 50% 50 ML SYRINGE IV PRN (04:45)
[2018-11-19] MEDS ORDERED: GLUCAGON FOR INJ 1 MG VIAL (J1610) SC PRN (04:45)
[2018-11-19] MEDS ORDERED: GLUCOSE 4 GM CHEW TABLET PO PRN (04:45)
[2018-11-19 06:00] VITALS: BP 164/74
[2018-11-19] MEDS: SENOKOT S TAB PO SCH ×2 (09:00→21:00)
[2018-11-19] MEDS: PANTOPRAZOLE 40MG INJ (PROTONIX) (C9113) IV SCH (09:07)
[2018-11-19] MEDS: BISOPROLOL FUMARATE 5 MG TAB PO SCH (09:07)
[2018-11-19] MEDS: amLODIPine 10 MG TAB PO SCH (09:07)
[2018-11-19] MEDS: ROSUVASTATIN 10 MG TAB (CRESTOR) PO SCH (09:07)
[2018-11-19] MEDS: FOLIC ACID 1 MG TAB PO SCH (09:07)
[2018-11-19] MEDS: ENOXAPARIN 40 MG/0.4 ML SYRINGE (J1650) SC SCH (09:08)
--- NOTE | 2018-11-19 11:18 | HPEPDOC ---
General Surgery H&P Date of Admission Nov 19, 2018 Attending Physician: MIGUEL SMITH DO History and Physical CHIEF COMPLAINT: abdominal pain HISTORY OF PRESENT ILLNESS: ALLERGIES: Please see below. HOME MEDICATIONS: Please see below. PAST MEDICAL HISTORY: 1. . 2. . PAST SURGICAL HISTORY: 1. . 2. . PERSONAL/SOCIAL HISTORY: [Denies smoking, alcohol use, or recreational drug use]. REVIEW OF SYSTEMS: GENERAL: [Denies chills, fatigue, fever, weight gain and weight loss]. HEENT: [Denies blurred vision and double vision. Denies ear symptoms. Denies hoarseness]. NECK: [Denies any neck pain]. CARDIOVASCULAR: [Denies chest pain and palpitations]. MUSCULOSKELETAL: [Denies arthralgias, back pain and thrombophlebitis]. SKIN: [Denies rash]. NEUROLOGIC: [Denies headache, stroke and transient ischemic attack]. PSYCHIATRIC: [Denies anxiety and depression]. ENDOCRINE: [Denies thyroid disease]. HEMATOLOGY/ONCOLOGY: [Denies any bleeding or clotting disorder]. HEART: [Denies any chest pains, palpitations, paroxysmal dyspnea, orthopnea]. PULMONARY: [Denies chronic cough, dyspnea and wheezing]. GASTROINTESTINAL: [Denies rectal bleeding, family history of colon cancer, constipation, diarrhea, dysphagia, heartburn and jaundice]. GENITOURINARY: [Denies dysuria, frequency, hematuria and nocturia]. ENDOCRINE: [Denies polydipsia, polyphagia, polyuria, heat or cold intolerance]. INFECTIOUS: [Denies any recent upper respiratory tract infection, UTI, need for use of antibiotics]. NUTRITION: [Reports good appetite]. PHYSICAL EXAMINATION: VITAL SIGNS: Please see below. GENERAL APPEARANCE: [Patient seen at bedside, appears comfortable]. [Awake, alert, oriented]. HEENT: [Normocephalic, atraumatic. Ritchey palpebral conjunctivae. Anicteric sclerae. Lips moist]. CHEST: [No chest wall abnormalities. Normal respiratory motion/effort]. NECK: [Supple. No thyromegaly. No lymphadenopathies]. LUNGS: [Lung sounds are clear to auscultation bilaterally. No wheezing appreciated]. HEART: [No chest wall abnormalities. Heart rate and rhythm are regular with no murmurs]. ABDOMEN: [Abdomen is obese, soft, slightly rounded. No hepatosplenomegaly. No umbilical or groin herniations, nondistended. No noticeable rebound or guarding. No grimacing with palpation. No rebound tenderness. No masses appreciated]. SKIN: [Warm, moist]. EXTREMITIES: [Extremities have no deformities. No edema identified]. NEUROLOGICAL: . ANCILLARIES: . LABORATORY DATA: Please see below. MICROBIOLOGY: Please see below. IMAGING: US abdomen 1. Distended gallbladder with intraluminal sludge, wall thickening, and pericholecystic fluid suggesting acute cholecystitis. 2. Hepatomegaly with hepatic steatosis. IMPRESSION AND PLAN: Acute Cholecystitis He will be admitted in the hospital under Dr. Smith. I will start him on antibi otics for now for the cholecystitis. He is scheduled to have his gb out on . I will speak to Dr. Smith about possibility of doing it during this admission. Vital Signs Vital Signs Date Time Temp Pulse Resp B/P (MAP) Pulse Ox O2 Delivery O2 Flow Rate FiO2 11/19/18 09:07 57 164/74 11/19/18 08:00 18 11/19/18 06:00 97.8 99 11/19/18 03:27 Room Air I&Os I&O- Last 24 Hours up to 6 AM 11/19/18 06:00 Intake Total 381 ml Balance 381 ml Laboratory Data Labs 24H Laboratory Tests 2 11/19/18 00:18: Immature Granulocyte % (Auto) 0.5, White Blood Count 6.4, Red Blood Count 3.74L, Hemoglobin 12.0L, Hematocrit 34.9L, Mean Corpuscular Volume 93.3, Mean Corpuscular Hemoglobin 32.1, Mean Corpuscular Hemoglobin Concent 34.4, Red Cell Distribution Width 13.6, Platelet Count 163, Neutrophils (%) (Auto) 73.7H, Lymphocytes (%) (Auto) 17.0L, Monocytes (%) (Auto) 7.5H, Eosinophils (%) (Auto) 0.8, Basophils (%) (Auto) 0.5, Neutrophils # (Auto) 4.7, Lymphocytes # (Auto) 1.1L, Monocytes # (Auto) 0.5, Eosinophils # (Auto) 0.1, Basophils # (Auto) 0.0, Nucleated Red Blood Cells % (auto) 0.0, Anion Gap 8, Glomerular Filtration Rate > 60.0, Calcium Level 9.0, Aspartate Amino Transf (AST/SGOT) 44H, Alanine Am inotransferase (ALT/SGPT) 52, Alkaline Phosphatase 65, Total Bilirubin 0.9, Direct Bilirubin 0.1, Total Protein 7.3, Albumin 3.8, Albumin/Globulin Ratio 1.09, Lipase 379 CBC/BMP Laboratory Tests 11/19/18 00:18 Red Blood Count 3.74 L, Mean Corpuscular Volume 93.3, Mean Corpuscular Hemoglobin 32.1, Mean Corpuscular Hemoglobin Concent 34.4, Red Cell Distribution Width 13.6, Neutrophils (%) (Auto) 73.7 H, Lymphocytes (%) (Auto) 17.0 L, Monocytes (%) (Auto) 7.5 H, Eosinophils (%) (Auto) 0.8, Basophils (%) (Auto) 0.5, Neutrophils # (Auto) 4.7, Lymphocytes # (Auto) 1.1 L, Monocytes # (Auto) 0.5, Eosinophils # (Auto) 0.1, Basophils # (Auto) 0.0 Home Medications Scheduled Amlodipine Besylate (Amlodipine Besylate) 10 Mg Tablet, 10 MG PO DAILY, (Reported) Aspirin (Aspirin EC) 81 Mg Tab, 81 MG PO DAILY, (Reported) Bisoprolol Fumarate (Bisoprolol Fumarate) 5 Mg Tablet, 5 MG PO DAILY, (Reported) Folic Acid (Folic Acid) 1 Mg Tablet, 1 MG PO DAILY, (Reported) Methotrexate Sodium (Methotrexate) 2.5 Mg Tablet, 10 MG PO 1XWK, (Reported) SATURDAYS Omeprazole (Omeprazole) 20 Mg Capsule.dr, 20 MG PO DAILY, (Reported) Rosuvastatin Calcium (Rosuvastatin Calcium) 20 Mg Tablet, 20 MG PO DAILY, (Reported) Allergies Coded Allergies: No Known Allergies (Verified , 05/30/08) HAROLDO BLOOM MD Nov 19, 2018 11:18
[2018-11-19 22:00] VITALS: BP 140/75
[2018-11-20] MEDS: LR 1,000 ML IV SCH ×2 (03:08→08:42)
[2018-11-20] MEDS: AMPICILLIN SOD/SULBACTAM SOD 3 GM in D5W MINI-BAG PLUS 100 ML IV SCH ×2 (03:30→09:58)
[2018-11-20 06:00] VITALS: BP 144/74
[2018-11-20 06:14] LABS: BASO % 0.3 % (0.0-1.0); EOS # 0.1 10^3/uL (0.0-0.5); EOS % 2.3 % (0.0-3.0); HEMATOCRIT 31.4 % (42.0-52.0); HEMOGLOBIN 10.4 g/dl (13.5-17.5); LYMPH # 0.8 10^3/uL (1.5-5.0); LYMPH % 21.8 % (24.0-44.0); MEAN CORPUSCULAR HEMOGLOBIN 31.4 pg (27.0-33.0); MEAN CORPUSCULAR HGB CONC 33.1 g/dl (32.0-36.5); MEAN CORPUSCULAR VOLUME 94.9 fl (80.0-96.0); MONO # 0.4 10^3/uL (0.0-0.8); MONO % 10.9 % (0.0-5.0); NEUTROPHILS # 2.2 10^3/uL (1.5-8.5); NEUTROPHILS % 64.1 % (36.0-66.0); PLATELET COUNT, AUTOMATED 129 10^3/uL (150-450); RED BLOOD COUNT 3.31 10^6/uL (4.30-6.10); WHITE BLOOD COUNT 3.5 10^3/uL (4.0-10.0)
[2018-11-20 06:36] LABS: ALBUMIN 3.1 GM/DL (3.2-5.2); ALT/SGPT 35 U/L (12-78); BILIRUBIN,TOTAL 0.9 MG/DL (0.2-1.0); BLOOD UREA NITROGEN 10 MG/DL (7-18); CALCIUM LEVEL 8.2 MG/DL (8.5-10.1); CARBON DIOXIDE LEVEL 28 MEQ/L (21-32); CHLORIDE LEVEL 104 MEQ/L (98-107); CREATININE FOR GFR 0.94 MG/DL (0.70-1.30); GLOMERULAR FILTRATION RATE > 60.0 (>56); GLUCOSE, FASTING 151 MG/DL (70-100); POTASSIUM SERUM 3.8 MEQ/L (3.5-5.1); SODIUM LEVEL 136 MEQ/L (136-145); TOTAL PROTEIN 6.4 GM/DL (6.4-8.2)
[2018-11-20] MEDS ORDERED: AUGM875T28 PO (08:22)
[2018-11-20] MEDS: PANTOPRAZOLE 40MG INJ (PROTONIX) (C9113) IV SCH (08:38)
[2018-11-20] MEDS: ROSUVASTATIN 10 MG TAB (CRESTOR) PO SCH (08:39)
[2018-11-20] MEDS: ENOXAPARIN 40 MG/0.4 ML SYRINGE (J1650) SC SCH (08:39)
[2018-11-20] MEDS: FOLIC ACID 1 MG TAB PO SCH (08:40)
[2018-11-20] MEDS: SENOKOT S TAB PO SCH (08:40)
[2018-11-20 08:41] VITALS: BP 143/91
[2018-11-20] MEDS: amLODIPine 10 MG TAB PO SCH (08:41)
[2018-11-20] MEDS: BISOPROLOL FUMARATE 5 MG TAB PO SCH (08:42)
[2018-11-20] MEDS ORDERED: FLUBLOK(EGG FREE)(QUAD)INFLUENZA VACC 0.5ML SYRINGE (90682)18YRS&OLDER IM ONE (09:00)
--- NOTE | 2018-11-20 09:30 | DSES ---
DATE OF ADMISSION: 11/19/2018 DATE OF DISCHARGE: 11/20/2018 ADMISSION DIAGNOSIS: Acute cholecystitis. DISCHARGE DIAGNOSIS: Acute cholecystitis. HOSPITAL COURSE: The patient is a 58-year-old male, known history of gallstone pancreatitis and had an outpatient cholecystectomy planned with me for December. Starting Tuesday he had increasing pain in the right upper quadrant got progressively worse Tuesday, so he finally came into the emergency room late on Tuesday evening. He was admitted by Dr. Lacey yesterday. Labs and vitals have been stable since admission. Pain is now resolved. He is going to be placed on a diet this morning. As long as he is tolerating it we will discharge him home today. His medical clearance appointment is this week. I have moved his surgery up from I think it was to 12/04/2018. The operating room ([facility]) is not available to do robotic cases today or tomorrow. They are fully booked already, and due to the inflammation around his gallbladder I feel it is safest to wait and use the robot. He requests that the surgery be done on a Tuesday or Tuesday, and the earliest Tuesday or Tuesday I could get him is 12/04/2018. I explained all this to him. He understands and he is in agreemen, and he will undergo surgery then. edited: 11/21/2018 0712 brayden ERWIN
== END 2018-11-20 12:05 | disposition home or self-care (01) ==
LOC: M ED → M ED INP 03:08 → M MSPAV 04:00
PROVIDERS: ADMIT Surgery; ATTEND Surgery
DX: K81.0 Acute cholecystitis (principal); Z79.82 Long term (current) use of aspirin; Z79.899 Other long term (current) drug therapy

== ENCOUNTER 2018-12-04 13:28 | Inpatient (IN) | payer OTHER ==
[~2018-12-04] VITALS: Ht 190.5 cm; Wt 119.5 kg
[~2018-12-04 13:28] MED LIST changes: +LR 1,000 ML IV ONE; -OMEP40CA2 PO; +OMEP40CA97 PO
[2018-12-04] MEDS ORDERED: ROCURONIUM BROMIDE 50 MG/5 ML VIAL As Ordered ONE (13:48)
[2018-12-04] MEDS ORDERED: fentaNYL 100 MCG/2 ML INJECTION (J3010) As Ordered ONE ×2 (13:48→15:38)
[2018-12-04] MEDS ORDERED: LIDOCAINE 2% INJ 100 MG/5 ML SDV (FOR ANES.) As Ordered ONE (13:48)
[2018-12-04] MEDS ORDERED: ONDANSETRON 4MG/2ML VIAL (J2405) As Ordered ONE (13:48)
[2018-12-04] MEDS ORDERED: dexameTHASONE 4 MG/ML 1ML VIAL (J1100) As Ordered ONE ×2 (13:48→15:10)
[2018-12-04] MEDS ORDERED: PROPOFOL 200 MG/20 ML VIAL As Ordered ONE (13:48)
[2018-12-04] MEDS ORDERED: MIDAZOLAM INJ 2 MG/2 ML VIAL (J2250) As Ordered ONE (13:49)
[2018-12-04] MEDS ORDERED: BUPIVACAINE HCL 0.25% 30 ML VIAL As Ordered ONE (14:34)
[2018-12-04] MEDS ORDERED: BUPIVACAINE/EPIN 0.25% 30 ML VIAL As Ordered ONE (15:01)
[2018-12-04] MEDS ORDERED: ACETAMINOPHEN 1000MG 100ML IV BTL (OFIRMEV) (J0131 PER 10MG) As Ordered ONE (15:17)
[2018-12-04] MEDS ORDERED: SUGAMMADEX SODIUM 500 MG/5 ML VIAL (BRIDION) As Ordered ONE (15:17)
[2018-12-04] MEDS ORDERED: KETOROLAC 60 MG/2 ML VIAL (J1885) As Ordered ONE (15:17)
[2018-12-04] MEDS ORDERED: hydrALAZINE INJ 20 MG/ML VIAL As Ordered ONE (15:36)
[2018-12-04] MEDS ORDERED: ONDANSETRON 4MG/2ML VIAL (J2405) IV PRN (17:15)
[2018-12-04] MEDS ORDERED: PERCOCET 5MG/325MG TAB PO PRN (17:15)
[2018-12-04] MEDS ORDERED: LR 1,000 ML IV SCH (17:15)
[2018-12-04] MEDS: fentaNYL 100 MCG/2 ML INJECTION (J3010) IV PRN ×4 (17:15→17:30)
[2018-12-04] MEDS ORDERED: MORPHINE 2 MG/ML 1ML VIAL (J2270) As Ordered ONE ×6 (17:45→19:53)
[2018-12-04] MEDS: MORPHINE 10 MG/ML 1ML VIAL (J2270) IV PRN ×6 (17:47→20:25)
[2018-12-04] MEDS ORDERED: NITROGLYCERIN 0.4 MG SUBL TABLET As Ordered ONE (17:50)
[2018-12-04] MEDS ORDERED: NITROGLYCERIN 0.4 MG SUBL TABLET SL SCH (18:00)
[2018-12-04 18:27] LABS: INR 1.2; PARTIAL THROMBOPLASTIN TIME 30.5 SECONDS (25.0-38.4); PROTHROMBIN TIME 14.9 SECONDS (11.8-14.0)
[2018-12-04 18:30] LABS: D-DIMER QUANT 429.03 ng/ml (<500)
[2018-12-04 18:49] LABS: BLOOD UREA NITROGEN 18 MG/DL (7-18); CALCIUM LEVEL 8.8 MG/DL (8.5-10.1); CARBON DIOXIDE LEVEL 24 MEQ/L (21-32); CHLORIDE LEVEL 104 MEQ/L (98-107); CREATININE FOR GFR 0.93 MG/DL (0.70-1.30); GLOMERULAR FILTRATION RATE > 60.0 (>56); GLUCOSE, FASTING 252 MG/DL (70-100); POTASSIUM SERUM 4.1 MEQ/L (3.5-5.1); SODIUM LEVEL 135 MEQ/L (136-145); TROPONIN I < 0.02 NG/ML (< 0.10)
[2018-12-04] MEDS ORDERED: HumaLOG INSULIN (NovoLOG) PER UNIT As Ordered ONE (19:10)
[2018-12-04 20:30] VITALS: BP 164/79
[2018-12-04] MEDS ORDERED: MORPHINE 2 MG/ML 1ML VIAL (J2270) IV ONE (20:45)
--- NOTE | 2018-12-04 20:58 | ECGEPIP ---
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
[2018-12-04 21:00] VITALS: BP 157/78
[2018-12-04 22:00] VITALS: BP 165/78
[2018-12-04 23:00] VITALS: BP 172/73
[2018-12-04] MEDS: NORCO, ANEXSIA 5/325MG TABLET (HYDROcodone/ACETAMINOPHEN) PO PRN (23:06)
[2018-12-05] VITALS (9 sets, daily range): BP systolic 142–210; BP diastolic 52–87
[2018-12-05] MEDS ORDERED: MORPHINE 4 MG/ML 1ML VIAL/SYRINGE (J2270) IV ONE (01:45)
[2018-12-05] MEDS ORDERED: KETOROLAC 30 MG/ML VIAL (J1885) IV ONE (02:45)
[2018-12-05] MEDS: MORPHINE 2 MG/ML 1ML VIAL (J2270) IV PRN ×7 (03:00→22:00)
[2018-12-05] MEDS: NORCO, ANEXSIA 5/325MG TABLET (HYDROcodone/ACETAMINOPHEN) PO PRN ×2 (05:45→12:56)
[2018-12-05] MEDS ORDERED: IBUPROFEN 800 MG TAB PO PRN (09:45)
[2018-12-05] MEDS: KETOROLAC 30 MG/ML VIAL (J1885) IV PRN ×2 (10:07→17:12)
[2018-12-05 10:39] LABS: HEMATOCRIT 41.2 % (42.0-52.0); HEMOGLOBIN 13.4 g/dl (13.5-17.5); MEAN CORPUSCULAR HGB CONC 32.5 g/dl (32.0-36.5); MEAN CORPUSCULAR VOLUME 95.4 fl (80.0-96.0); PLATELET COUNT, AUTOMATED 193 10^3/uL (150-450); RED BLOOD COUNT 4.32 10^6/uL (4.30-6.10); WHITE BLOOD COUNT 15.2 10^3/uL (4.0-10.0)
[2018-12-05 11:01] LABS: ALBUMIN 3.5 GM/DL (3.2-5.2); BILIRUBIN,TOTAL 1.7 MG/DL (0.2-1.0); CALCIUM LEVEL 9.2 MG/DL (8.5-10.1); CREATININE FOR GFR 1.34 MG/DL (0.70-1.30); GLOMERULAR FILTRATION RATE 58.1 (>56); POTASSIUM SERUM 4.3 MEQ/L (3.5-5.1); TOTAL PROTEIN 8.3 GM/DL (6.4-8.2)
--- NOTE | 2018-12-05 20:46 | RO ---
DATE OF PROCEDURE: 12/04/2018 PREOPERATIVE DIAGNOSIS: Gallstone pancreatitis. POSTOPERATIVE DIAGNOSIS: Gallstone pancreatitis. PROCEDURE: Robotic cholecystectomy. SURGEON: Dr. Miki Smith WOOD FENCE INSTALLER: None. ANESTHESIA: General. ESTIMATED BLOOD LOSS: 50 mL. COMPLICATIONS: None. INDICATIONS FOR PROCEDURE: The patient is a 58-year-old male who presents with a history of gallstone pancreatitis in the hospital. He underwent endoscopic retrograde cholangiopancreatography (ERCP) just over a month ago for that. He has had persistent pain since then. Recommendation was to proceed with robotic cholecystectomy. The risks and benefits of the procedure not limited to but including bleeding, infection, hernia formation, bile leak, damage to surrounding structures and need for further surgery were discussed in detail with the patient. Informed consent was obtained and procedure was planned. DESCRIPTION OF PROCEDURE: The patient was brought back to operating room seven, after sufficient sedation, the abdomen sterilely prepped and draped. Next, a time-out was done to confirm proper patient, proper procedure. Next, an 8 mm incision made in left upper quadrant, Veress needle inserted and the abdomen was insufflated to 15 mmHg. Next, the Veress needle was removed and 8 mm robotic ports placed. Cannula was then inserted, the abdomen was examined. Three more robotic ports were placed across the upper abdomen, and then the robot was docked. Next, the fundus of the gallbladder was identified. It was held up towards the right shoulder. Cystic duct and cystic artery were dissected free using a combination of blunt and sharp dissection. Once they were both clearly identified, they were both doubly clipped and cut. Gallbladder was then dissected free from the gallbladder fossa using electrocautery. Once that was completed, it was brought out through a 5 mm Endo Catch bag through the most right-sided port. Once that was completed, liver bleeding was controlled using cautery. Once that was completed, #19-Stateless Den drain was also placed inside of the abdomen and left there temporarily. Next, the #2-0 V-Loc suture was used robotically to close the most right-sided port site, which had been dilated to remove the gallbladder. Once that was completed, the second to the right port site was removed and the drain was brought out through there, sutured in place with a #2-0 silk suture. The abdomen was then desufflated. Skin incisions closed with #4-0 Vicryl subcuticular sutures. The abdomen cleaned and dried. Steri-Strips, 4x4, and tape were applied thus ending procedure. ASHLEYD
[2018-12-06] MEDS: KETOROLAC 30 MG/ML VIAL (J1885) IV PRN ×2 (00:55→13:47)
[2018-12-06 02:00] VITALS: BP 119/57
[2018-12-06 06:00] VITALS: BP 129/73
[2018-12-06] MEDS: MORPHINE 2 MG/ML 1ML VIAL (J2270) IV PRN ×5 (06:07→22:44)
[2018-12-06] MEDS ORDERED: NS 1,000 ML IV ONE (07:45)
--- NOTE | 2018-12-06 08:12 | IPNPDOC ---
Text Note Date of Service The patient was seen on 12/05/18. NOTE No acute events overnight. Pain is still difficult to control. He has severe pains in the RUQ, and in the right shoulder. He is able to walk around the room and walk to the bathroom, but it is extremely difficult. He also can't take a full breath. VSSAF NAD abd - soft, TTP diffuse with the strongest pain in the RUQ, non distended labs - see below A) 58y/o male s/p RA beau for acute cholecystitis and gallstone pancreatitis P) reg diet PO and IV pain control ambulate monitor labs will plan for dc once pain is controlled. Dewey Smith DO VS,Fishbone, I+O VS, Fishbone, I+O Laboratory Tests 12/05/18 09:54 Vital Signs Date Time Temp Pulse Resp B/P (MAP) Pulse Ox O2 Delivery O2 Flow Rate FiO2 12/06/18 06:17 18 12/06/18 06:00 99.8 78 129/73 (91) 98 NIPPV (BIPAP/CPAP) 12/05/18 09:00 2.0 l I&O- Last 24 Hours up to 6 AM 12/06/18 06:00 Intake Total 630 ml Output Total 480 ml Balance 150 ml MIGUEL SMITH DO Dec 06, 2018 08:11
--- NOTE | 2018-12-06 08:16 | IPNPDOC ---
Text Note Date of Service The patient was seen on 12/06/18. NOTE No acute events overnight. Pain is still difficult to control. He has severe pains in the RUQ, and in the right shoulder. He is able to walk around the room and walk to the bathroom, but it is extremely difficult. He still can't take a full breath. No improvement from yesterday, he is not walking in the halls. Nurses report that he has dark urine. VSSAF NAD abd - soft, TTP diffuse with the strongest pain in the RUQ, non distended labs - pending A) 58y/o male s/p RA beau for acute cholecystitis and gallstone pancreatitis P) reg diet PO and IV pain control ambulate fluid bolus monitor labs will plan for dc once pain is controlled. Dewey Smith DO VS,Jere, I+O VS, Nenae, I+O Laboratory Tests 12/05/18 09:54 Vital Signs Date Time Temp Pulse Resp B/P (MAP) Pulse Ox O2 Delivery O2 Flow Rate FiO2 12/06/18 06:17 18 12/06/18 06:00 99.8 78 129/73 (91) 98 NIPPV (BIPAP/CPAP) 12/05/18 09:00 2.0 I&O- Last 24 Hours up to 6 AM 12/06/18 06:00 Intake Total 630 ml Output Total 480 ml Balance 150 ml MIGUEL SMITH DO Dec 06, 2018 08:16
[2018-12-06 08:42] LABS: HEMATOCRIT 36.4 % (42.0-52.0); MEAN CORPUSCULAR HEMOGLOBIN 30.8 pg (27.0-33.0); MEAN CORPUSCULAR VOLUME 93.6 fl (80.0-96.0); PLATELET COUNT, AUTOMATED 190 10^3/uL (150-450); RED BLOOD COUNT 3.89 10^6/uL (4.30-6.10); WHITE BLOOD COUNT 14.8 10^3/uL (4.0-10.0)
[2018-12-06 09:18] LABS: ALBUMIN 3.2 GM/DL (3.2-5.2); BILIRUBIN,TOTAL 2.2 MG/DL (0.2-1.0); CALCIUM LEVEL 9.5 MG/DL (8.5-10.1); CREATININE FOR GFR 1.71 MG/DL (0.70-1.30); GLOMERULAR FILTRATION RATE 43.8 (>56); POTASSIUM SERUM 3.9 MEQ/L (3.5-5.1)
[2018-12-06] MEDS: ASPIRIN 81 MG ENTERIC TAB PO SCH (09:37)
[2018-12-06] MEDS: FOLIC ACID 1 MG TAB PO SCH (09:37)
[2018-12-06] MEDS: OMEPRAZOLE 20 MG CAP PO SCH (09:37)
[2018-12-06] MEDS: ROSUVASTATIN 10 MG TAB (CRESTOR) PO SCH (09:37)
[2018-12-06] MEDS: amLODIPine 10 MG TAB PO SCH (09:38)
[2018-12-06] MEDS: BISOPROLOL FUMARATE 5 MG TAB PO SCH (09:38)
[2018-12-06] MEDS: NS 1,000 ML IV SCH ×2 (11:25→18:07)
[2018-12-06 14:00] VITALS: BP 163/78
[2018-12-06] MEDS: NORCO, ANEXSIA 5/325MG TABLET (HYDROcodone/ACETAMINOPHEN) PO PRN ×2 (14:11→20:22)
[2018-12-06] MEDS: SENNA 8.6 MG TAB (SENOKOT) PO SCH (20:21)
[2018-12-06 22:00] VITALS: BP 118/63
[2018-12-07] MEDS: MORPHINE 2 MG/ML 1ML VIAL (J2270) IV PRN ×4 (01:02→20:06)
[2018-12-07] MEDS: NS 1,000 ML IV SCH ×3 (02:27→16:34)
[2018-12-07] MEDS: NORCO, ANEXSIA 5/325MG TABLET (HYDROcodone/ACETAMINOPHEN) PO PRN ×3 (02:28→18:02)
[2018-12-07 06:00] VITALS: BP 120/63
[2018-12-07 07:32] LABS: HEMATOCRIT 33.8 % (42.0-52.0); HEMOGLOBIN 10.7 g/dl (13.5-17.5); MEAN CORPUSCULAR HEMOGLOBIN 30.2 pg (27.0-33.0); MEAN CORPUSCULAR HGB CONC 31.7 g/dl (32.0-36.5); MEAN CORPUSCULAR VOLUME 95.5 fl (80.0-96.0); PLATELET COUNT, AUTOMATED 197 10^3/uL (150-450); RED BLOOD COUNT 3.54 10^6/uL (4.30-6.10); WHITE BLOOD COUNT 11.4 10^3/uL (4.0-10.0)
[2018-12-07 07:58] LABS: ALBUMIN 2.8 GM/DL (3.2-5.2); BILIRUBIN,TOTAL 1.2 MG/DL (0.2-1.0); CALCIUM LEVEL 8.8 MG/DL (8.5-10.1); CREATININE FOR GFR 1.31 MG/DL (0.70-1.30); GLOMERULAR FILTRATION RATE 59.6 (>56); POTASSIUM SERUM 3.8 MEQ/L (3.5-5.1); TOTAL PROTEIN 7.7 GM/DL (6.4-8.2)
[2018-12-07] MEDS: ROSUVASTATIN 10 MG TAB (CRESTOR) PO SCH (08:35)
[2018-12-07] MEDS: FOLIC ACID 1 MG TAB PO SCH (08:35)
[2018-12-07] MEDS: KETOROLAC 30 MG/ML VIAL (J1885) IV PRN ×3 (08:35→23:22)
[2018-12-07] MEDS: ASPIRIN 81 MG ENTERIC TAB PO SCH (08:35)
[2018-12-07] MEDS: OMEPRAZOLE 20 MG CAP PO SCH (08:35)
[2018-12-07] MEDS: SENNA 8.6 MG TAB (SENOKOT) PO SCH ×2 (08:35→20:05)
[2018-12-07] MEDS: BISOPROLOL FUMARATE 5 MG TAB PO SCH (08:36)
[2018-12-07] MEDS: amLODIPine 10 MG TAB PO SCH (08:36)
--- NOTE | 2018-12-07 09:56 | IPNPDOC ---
Text Note Date of Service The patient was seen on 12/07/18. NOTE No acute events overnight. Pain is still present, but it is improving. He was able to walk around the [place] this am. He still can't take a full breath, and his urine is still dark. VSSAF NAD abd - soft, TTP diffuse with the strongest pain in the RUQ, non distended, drain is serosanguinous labs - below, all improved A) 58y/o male s/p RA beau for acute cholecystitis and gallstone pancreatitis P) reg diet PO and IV pain control ambulate IVF monitor labs wean pain meds amb in amaya dc drain will plan for dc once pain is controlled. Dewey Smith DO VS,Nenae, I+O VS, Fishbone, I+O Laboratory Tests 12/07/18 07:10 Vital Signs Date Time Temp Pulse Resp B/P (MAP) Pulse Ox O2 Delivery O2 Flow Rate FiO2 12/07/18 08:36 65 120/63 12/07/18 06:00 98.4 16 97 Room Air 12/05/18 09:00 2.0 I&O- Last 24 Hours up to 6 AM 12/07/18 06:00 Intake Total 2275 ml Output Total 1405 ml Balance 870 ml MIGUEL SMITH DO Dec 07, 2018 09:56
[2018-12-07] MEDS: MOM 30ML SUSPENSION UDC PO SCH ×2 (13:59→20:05)
[2018-12-07 14:00] VITALS: BP 119/59
[2018-12-07 22:00] VITALS: BP 143/67
[2018-12-08] MEDS: NORCO, ANEXSIA 5/325MG TABLET (HYDROcodone/ACETAMINOPHEN) PO PRN ×4 (00:24→20:37)
[2018-12-08] MEDS: NS 1,000 ML IV SCH ×3 (03:22→20:36)
[2018-12-08] MEDS: MORPHINE 2 MG/ML 1ML VIAL (J2270) IV PRN (05:19)
[2018-12-08 06:00] VITALS: BP 138/70
[2018-12-08] MEDS: OMEPRAZOLE 20 MG CAP PO SCH (09:02)
[2018-12-08] MEDS: FOLIC ACID 1 MG TAB PO SCH (09:02)
[2018-12-08] MEDS: ROSUVASTATIN 10 MG TAB (CRESTOR) PO SCH (09:03)
[2018-12-08] MEDS: MOM 30ML SUSPENSION UDC PO SCH ×2 (09:03→20:36)
[2018-12-08] MEDS: SENNA 8.6 MG TAB (SENOKOT) PO SCH ×2 (09:03→20:36)
[2018-12-08] MEDS: ASPIRIN 81 MG ENTERIC TAB PO SCH (09:03)
[2018-12-08] MEDS: BISOPROLOL FUMARATE 5 MG TAB PO SCH (09:10)
[2018-12-08] MEDS: amLODIPine 10 MG TAB PO SCH (09:11)
[2018-12-08] MEDS: KETOROLAC 30 MG/ML VIAL (J1885) IV PRN ×3 (09:38→23:24)
[2018-12-08 10:24] LABS: HEMATOCRIT 32.2 % (42.0-52.0); HEMOGLOBIN 10.3 g/dl (13.5-17.5); MEAN CORPUSCULAR HEMOGLOBIN 30.6 pg (27.0-33.0); MEAN CORPUSCULAR VOLUME 95.5 fl (80.0-96.0); PLATELET COUNT, AUTOMATED 189 10^3/uL (150-450); RED BLOOD COUNT 3.37 10^6/uL (4.30-6.10); WHITE BLOOD COUNT 10.1 10^3/uL (4.0-10.0)
[2018-12-08] MEDS ORDERED: NS 1,000 ML IV ONE (10:30)
--- NOTE | 2018-12-08 10:34 | IPNPDOC ---
Text Note Date of Service The patient was seen on 12/08/18. NOTE No acute events overnight. Pain is still present, but it is improving. He was able to walk around the [place] this am a few times, but he still feels weak. VSSAF NAD abd - soft, TTP diffuse with the strongest pain in the RUQ, non distended labs - below A) 58y/o male s/p RA beau for acute cholecystitis and gallstone pancreatitis P) reg diet PO and IV pain control ambulate IVF monitor labs wean pain meds amb in [place] fluid bolus for hydration encourage PO food intake ensure TID will plan for dc once pain is controlled. Dewey Smith DO VS,Fishbone, I+O VS, Fishbone, I+O Laboratory Tests 12/08/18 09:55 Vital Signs Date Time Temp Pulse Resp B/P (MAP) Pulse Ox O2 Delivery O2 Flow Rate FiO2 12/08/18 09:11 72 145/68 12/08/18 07:24 20 12/08/18 06:00 97.4 97 Room Air 12/05/18 09:00 2.0 I&O- Last 24 Hours up to 6 AM 12/08/18 06:00 Intake Total 3465 ml Output Total 1895 ml Balance 1570 ml MIGUEL SMITH DO Dec 08, 2018 10:34
[2018-12-08 11:12] LABS: ALBUMIN 2.6 GM/DL (3.2-5.2); ALT/SGPT 30 U/L (12-78); BLOOD UREA NITROGEN 27 MG/DL (7-18); CALCIUM LEVEL 7.8 MG/DL (8.5-10.1); CARBON DIOXIDE LEVEL 25 MEQ/L (21-32); CHLORIDE LEVEL 102 MEQ/L (98-107); CREATININE FOR GFR 1.05 MG/DL (0.70-1.30); GLOMERULAR FILTRATION RATE > 60.0 (>56); GLUCOSE, FASTING 200 MG/DL (70-100); POTASSIUM SERUM 3.8 MEQ/L (3.5-5.1); SODIUM LEVEL 135 MEQ/L (136-145)
[2018-12-08 14:00] VITALS: BP 130/60
[2018-12-08 22:00] VITALS: BP 143/56
[2018-12-09] MEDS: NS 1,000 ML IV SCH ×3 (04:56→14:34)
[2018-12-09 06:00] VITALS: BP_SYST 107; BP_SYST 123; BP_DIAS 62; BP_DIAS 83
[2018-12-09] MEDS: MORPHINE 2 MG/ML 1ML VIAL (J2270) IV PRN ×3 (07:56→22:53)
[2018-12-09] MEDS: ASPIRIN 81 MG ENTERIC TAB PO SCH (08:00)
[2018-12-09] MEDS: MOM 30ML SUSPENSION UDC PO SCH ×2 (08:00→20:20)
[2018-12-09] MEDS: BISOPROLOL FUMARATE 5 MG TAB PO SCH (08:00)
[2018-12-09] MEDS: SENNA 8.6 MG TAB (SENOKOT) PO SCH ×2 (08:00→20:20)
[2018-12-09] MEDS: ROSUVASTATIN 10 MG TAB (CRESTOR) PO SCH (08:00)
[2018-12-09] MEDS: FOLIC ACID 1 MG TAB PO SCH (08:00)
[2018-12-09] MEDS: amLODIPine 10 MG TAB PO SCH (08:01)
[2018-12-09] MEDS: OMEPRAZOLE 20 MG CAP PO SCH (08:01)
[2018-12-09] MEDS: NORCO, ANEXSIA 5/325MG TABLET (HYDROcodone/ACETAMINOPHEN) PO PRN ×2 (09:36→19:29)
[2018-12-09] MEDS ORDERED: VANCOMYCIN HCL 1,000 MG, VIAL MATE ADAPTER 1 EACH in D5W 250 ML IV SCH (10:15)
[2018-12-09] MEDS: KETOROLAC 30 MG/ML VIAL (J1885) IV PRN ×2 (10:24→16:57)
[2018-12-09 11:40] LABS: ALBUMIN 2.1 GM/DL (3.2-5.2); ALT/SGPT 26 U/L (12-78); BILIRUBIN,TOTAL 0.8 MG/DL (0.2-1.0); BLOOD UREA NITROGEN 15 MG/DL (7-18); CALCIUM LEVEL 7.8 MG/DL (8.5-10.1); CARBON DIOXIDE LEVEL 23 MEQ/L (21-32); CHLORIDE LEVEL 104 MEQ/L (98-107); CREATININE FOR GFR 1.03 MG/DL (0.70-1.30); GLOMERULAR FILTRATION RATE > 60.0 (>56); GLUCOSE, FASTING 265 MG/DL (70-100); POTASSIUM SERUM 3.5 MEQ/L (3.5-5.1); SODIUM LEVEL 136 MEQ/L (136-145)
[2018-12-09] MEDS ORDERED: ERTAPENEM SODIUM 1 GM in NS MINI-BAG PLUS 50 ML IV SCH (12:00)
[2018-12-09] MEDS: VANCOMYCIN HCL 1,000 MG, VIAL MATE ADAPTER 1 EACH in D5W 250 ML IV SCH ×2 (13:13→14:28)
[2018-12-09 14:00] VITALS: BP 126/63
--- NOTE | 2018-12-09 14:05 | IPN ---
DATE: 12/09/2018 Patient has had some drainage from his right-sided trocar site overnight and into this morning and has developed some erythema starting yesterday and it progressed to today. His white count has been dropping on a daily basis, however. Today he states that he feels better than he did yesterday. The patient has been tolerating a diet without bowel movements, however. He has had flatus. On his physical exam his abdomen is mildly distended. He has some areas of cellulitis and a probable subcutaneous abscess on the right-hand side next the trocar. The trocar site was probed with a Q-tip and indeed revealed some significant drainage. I irrigated this out with some peroxide and indeed had a good amount of drainage with this. The patient's overall discomfort pain seems to be better after having additional drainage of this. We obtained a culture of this. IMPRESSION AND PLAN: The patient has evidence of a subcutaneous abscess/cellulitis of the abdominal wall on the right-hand side. Given that he has had some improvement clinically from a pain standpoint, discomfort. Overall from the drainage standpoint, it seems to be adequately draining. As long as his symptoms continue to improve I do feel we may be able to adequately drain him via this site. However, if he has increasing temperature, increasing pain or evidence of no significant improvement over the daytime, we will need to get a CT scan to rule out any other significant abnormality. Will continue him on his diet for right now and continue to encourage him to be more active. Dressing changes have been ordered, antibiotics and culture have been performed.
--- NOTE | 2018-12-09 18:53 | PHACANCOPD ---
PHARMACY VANCOMYCIN DOSING Pt Demographics Demographics Patient Age:58 , Weight:119.540 , Gender: male Adjusted Body Weight Date: 12/09/18, Adjusted Body Weight: Kg Events Past 24 Hours Events Past 24 Hours: YES: Elevation in WBC; NO: Dialysis, Diuretic Therapy, Change in CrCl, Fever, Pending Diagnostics, Pending Procedures, Other Vancomycin Vancomycin indication: INTRAABDOMINAL/SSTI Vancomycin Target Ranges: 15-20 mcg/ml Vancomycin Load Y/N: Yes Load Dose Date Time Vancomycin Load Dose: 2 GRAMS Date: 12/09/18 Time: 1300 Vancomycin Dose Date: 12/09/18. Current Vancomycin Dose: [1 GRAM Q12H] Intermittent Dosing?: No Labs Labs Item Value Date Time White Blood Count 10.1 10^3/uL H 12/08/18 0955 White Blood Count 11.4 10^3/uL H 12/07/18 0710 White Blood Count 14.8 10^3/uL H 12/06/18 0831 White Blood Count 15.2 10^3/uL H 12/05/18 0954 Creatinine 1.34 MG/DL H 12/05/18 0954 Creatinine 1.71 MG/DL H 12/06/18 0831 Creatinine 1.31 MG/DL H 12/07/18 0710 Creatinine 1.05 MG/DL 12/08/18 0955 Creatinine 1.03 MG/DL 12/09/18 1103 Glomerular Filtration Rate 58.1 12/05/18 0954 Glomerular Filtration Rate 43.8 L 12/06/18 0831 Glomerular Filtration Rate 59.6 12/07/18 0710 Glomerular Filtration Rate > 60.0 12/08/18 0955 Glomerular Filtration Rate > 60.0 12/09/18 1103 Micro Microbiology 12/09/18 Gram Stain - Final, Resulted 12/09/18 Abscess Culture, Resulted Pending Creatinine Clearance Date:12/09/18. Creatinine Clearance: [92.29 mL/min]. Assessment and Plan Maintaining Current Dose?: Yes Reason for dose change: No Dose Change Pharmacist Note Pharmacist Note Date: 12/09/18. Pharmacist note: Patient was initiated on broad spectrum antibiotic therapy for a suspected intraabdominal abscess, including Invanz and vancomycin. A vancomycin loading dose of 2 grams was scheduled for today at 1300, with a subsequent maintenance dose of 1 gram every 12 hours. A trough to determine steady-state, goal was scheduled for 12/10/18 @ 1200, prior to the third dose. We will continue to monitor and make adjustments as necessary. [facility] Dec 09, 2018 18:53
[2018-12-09 22:00] VITALS: BP 153/71
[2018-12-10] MEDS: NS 1,000 ML IV SCH ×4 (00:44→19:31)
[2018-12-10] MEDS: VANCOMYCIN HCL 1,000 MG, VIAL MATE ADAPTER 1 EACH in D5W 250 ML IV SCH ×3 (00:44→21:16)
[2018-12-10] MEDS: KETOROLAC 30 MG/ML VIAL (J1885) IV PRN (04:08)
[2018-12-10 06:00] VITALS: BP 154/72
[2018-12-10] MEDS: OMEPRAZOLE 20 MG CAP PO SCH (08:09)
[2018-12-10] MEDS: ASPIRIN 81 MG ENTERIC TAB PO SCH (08:09)
[2018-12-10] MEDS: ROSUVASTATIN 10 MG TAB (CRESTOR) PO SCH (08:10)
[2018-12-10] MEDS: NORCO, ANEXSIA 5/325MG TABLET (HYDROcodone/ACETAMINOPHEN) PO PRN ×2 (08:10→15:04)
[2018-12-10] MEDS: amLODIPine 10 MG TAB PO SCH (08:11)
[2018-12-10] MEDS: FOLIC ACID 1 MG TAB PO SCH (08:11)
[2018-12-10] MEDS: BISOPROLOL FUMARATE 5 MG TAB PO SCH (08:11)
[2018-12-10] MEDS: SENNA 8.6 MG TAB (SENOKOT) PO SCH ×2 (08:11→21:00)
[2018-12-10] MEDS: MOM 30ML SUSPENSION UDC PO SCH ×2 (08:12→21:00)
[2018-12-10] MEDS: MORPHINE 2 MG/ML 1ML VIAL (J2270) IV PRN ×4 (09:43→21:17)
[2018-12-10 10:09] LABS: HEMATOCRIT 33.2 % (42.0-52.0); HEMOGLOBIN 10.6 g/dl (13.5-17.5); MEAN CORPUSCULAR HGB CONC 31.9 g/dl (32.0-36.5); MEAN CORPUSCULAR VOLUME 94.1 fl (80.0-96.0); PLATELET COUNT, AUTOMATED 197 10^3/uL (150-450); RED BLOOD COUNT 3.53 10^6/uL (4.30-6.10); WHITE BLOOD COUNT 7.6 10^3/uL (4.0-10.0)
[2018-12-10 10:37] LABS: ALBUMIN 2.2 GM/DL (3.2-5.2); ALT/SGPT 23 U/L (12-78); BILIRUBIN,TOTAL 0.6 MG/DL (0.2-1.0); BLOOD UREA NITROGEN 11 MG/DL (7-18); CALCIUM LEVEL 8.2 MG/DL (8.5-10.1); CARBON DIOXIDE LEVEL 25 MEQ/L (21-32); CHLORIDE LEVEL 104 MEQ/L (98-107); GLOMERULAR FILTRATION RATE > 60.0 (>56); GLUCOSE, FASTING 232 MG/DL (70-100); POTASSIUM SERUM 3.8 MEQ/L (3.5-5.1); SODIUM LEVEL 134 MEQ/L (136-145); TOTAL PROTEIN 6.8 GM/DL (6.4-8.2)
--- NOTE | 2018-12-10 10:37 | REP ---
Clinical: Abdominal wall abscess. Technique: Axial noncontrast images from the lung bases to the pubic symphysis with coronal and sagittal re-formations. Comparison: 10/19/2018. Findings: Gas and small amount of fluid extends from the region of the spenser hepatis into the gallbladder fossa and to the subcapsular periphery of the liver where again extends into the peritoneal space between the liver and the lateral anterior abdominal wall followed by a small amount of gas and infiltration in the subcutaneous tissues (images [id number]). Findings should be correlated with recent surgery including presumed cholecystectomy. A common bile duct stent is identified extending from the head of the pancreas into the duodenum having migrated from its prior position. Reactive adenopathy in the upper abdomen is similar to prior examination. There is no significant discrete fluid collection otherwise appreciated for drainage. Spleen, pancreas, bilateral kidneys and left adrenal gland are normal. Stable adrenal adenoma in the medial limb of the right adrenal gland again identified. There is no evidence for bowel obstruction. Pelvis demonstrates normal bladder and age appropriate prostate/seminal vesicles. No significant ascites. No retroperitoneal adenopathy. Abdominal aorta without aneurysm. Musculoskeletal structures are intact. Lung bases demonstrate small right pleural effusion and bibasilar atelectasis. Impression: 1. Complex collection of gas in small amounts of fluid as well as inflammatory stranding as described above extending from the spenser hepatis through the gallbladder fossa to the periphery/subcapsular liver and extending into the lateral peritoneal space between the liver and the anterior abdominal wall followed by small amounts of subcutaneous gas and inflammatory stranding. No discrete drainable fluid collection otherwise identified. 2. Small right pleural effusion and bibasilar atelectasis. Electronically Signed by Nakul Soto MD 12/10/2018 10:29 A
[2018-12-10] MEDS: CIPROFLOXACIN 400 MG in IV 1 EA IV SCH ×2 (11:22→23:31)
[2018-12-10] MEDS: metroNIDAZOLE 500 MG in IV 1 EA IV SCH ×2 (12:48→19:31)
--- NOTE | 2018-12-10 13:03 | PHACANCOPD ---
PHARMACY VANCOMYCIN DOSING Pt Demographics Demographics Patient Age:58 , Weight:119.540 , Gender: male Adjusted Body Weight Date: 12/09/18, Adjusted Body Weight: [98.516] Kg Events Past 24 Hours Events Past 24 Hours: NO: Dialysis, Diuretic Therapy, Change in CrCl, Fever, Elevation in WBC, Pending Diagnostics, Pending Procedures, Other Vancomycin Vancomycin indication: INTRAABDOMINAL/SSTI Vancomycin Target Ranges: 15-20 mcg/ml Vancomycin Load Y/N: Yes Load Dose Date Time Vancomycin Load Dose: 2 GRAMS Date: 12/09/18 Time: 1300 Vancomycin Dose Date: 12/10/18. Current Vancomycin Dose: [1G IV Q8H] Date: 12/09/18. Current Vancomycin Dose: [1 GRAM Q12H] Intermittent Dosing?: No Labs Labs Item Value Date Time White Blood Count 15.2 10^3/uL H 12/05/18 0954 White Blood Count 14.8 10^3/uL H 12/06/18 0831 White Blood Count 11.4 10^3/uL H 12/07/18 0710 White Blood Count 10.1 10^3/uL H 12/08/18 0955 White Blood Count 7.6 10^3/uL 12/10/18 0957 Creatinine 1.31 MG/DL H 12/07/18 0710 Creatinine 1.05 MG/DL 12/08/18 0955 Creatinine 1.71 MG/DL H 12/06/18 0831 Creatinine 1.03 MG/DL 12/09/18 1103 Creatinine 1.00 MG/DL 12/10/18 0957 Vancomycin Level Trough 5.3 UG/ML L 12/10/18 1142 Micro Microbiology 12/09/18 Gram Stain - Final, Resulted 12/09/18 Abscess Culture, Resulted Pending Creatinine Clearance Date:12/10/18. Creatinine Clearance: [110.83ml/min abw]. Date:12/09/18. Creatinine Clearance: [92.29 mL/min]. Pending Labs 12/11/18 trough @12 Assessment and Plan Maintaining Current Dose?: No Reason for dose change: Trough too low Pharmacist Note Pharmacist Note Date: 12/10/18. Pharmacist note:Pt trough came back @ 5.3mcg/ml prior to the third dose. Dosing will change to 1g vancomycin IV every 8 hours and an extra 500mg vancomycin IV will be administered @14:00. A trough is scheduled for 12:00 12/11/18. We will continue to monitor and adjust the dose as needed. Date: 12/09/18. Pharmacist note: Patient was initiated on broad spectrum antibiotic therapy for a suspected intraabdominal abscess, including Invanz and vancomycin. A vancomycin loading dose of 2 grams was scheduled for today at 1300, with a subsequent maintenance dose of 1 gram every 12 hours. A trough to determine steady-state, goal was scheduled for 12/10/18 @ 1200, prior to the third dose. We will continue to monitor and make adjustments as necessary. [facility] Dec 10, 2018 13:03
[2018-12-10 14:00] VITALS: BP 154/74
[2018-12-10] MEDS ORDERED: VANCOMYCIN HCL 500 MG in D5W MINI-BAG PLUS 100 ML IV ONE (14:00)
--- NOTE | 2018-12-10 14:23 | IPN ---
DATE: 12/10/2018 Subjectively, the patient states that he is feeling a lot better today. He states that he had a lot of drainage at that side, and since having the drainage his abdomen feels a lot softer than it was beforehand. He is not having as much nausea and he has had more flatus and feeling less distended and pain then yesterday. He has not had any fevers. His white count is 7.6. However, despite this he still has some significant cellulitis on his abdominal wall on the right-hand side and still some purulent drainage. With this finding I ordered a CAT scan for further evaluation of this area. A CAT scan was performed after discussing the options with him and CT scan reveals that he has probably an abscess at the gallbladder fossa and extending around the liver area. It does not seem to be an intraperitoneal perforation. It seems to be well localized to this area and it seems to be draining via the trocar site into the subcutaneous tissue and then from the subcutaneous tissue out through his incision. IMPRESSION/PLAN: The patient has evidence of an intra-abdominal abscess with drainage via his right subcostal area. Fortunately, he has had some significant drainage and he states that he is feeling better, and thus, on this aspect of things I do feel that it is not unreasonable to continue with antibiotics. However, I am going to keep him nothing by mouth just in case he does spike a fever or if his cellulitis progresses over the day. I have instructed him it that may require a relatively significant incision and drainage of the right abdominal wall/flank area and then whether to proceed with a laparoscopy with drainage is undetermined. If this was performed I anticipate it would be quite a messy intervention and fought with possible complications, and thus, at this point given his improvement it may be reasonable to continue with current plan. He feels as though he is doing much better and is agreeable to seeing how things go tonight and then tomorrow planning on a percutaneous drainage of the gallbladder fossa abscess. Once we are able to control this drainage, I anticipate the cellulitis and the inflammatory issue within the subcutaneous tissue to resolve. It seems to be adequately draining out this area. However, we will make sure that this continues to do same with continued dressing changes, irrigation etc.
[2018-12-10 22:00] VITALS: BP 157/72
[2018-12-11] MEDS: metroNIDAZOLE 500 MG in IV 1 EA IV SCH ×3 (03:17→20:51)
[2018-12-11] MEDS: VANCOMYCIN HCL 1,000 MG, VIAL MATE ADAPTER 1 EACH in D5W 250 ML IV SCH (05:05)
[2018-12-11 06:00] VITALS: BP 145/70
[2018-12-11] MEDS: NORCO, ANEXSIA 5/325MG TABLET (HYDROcodone/ACETAMINOPHEN) PO PRN ×2 (06:30→17:41)
[2018-12-11] MEDS: FOLIC ACID 1 MG TAB PO SCH (09:09)
[2018-12-11] MEDS: SENNA 8.6 MG TAB (SENOKOT) PO SCH ×2 (09:10→20:51)
[2018-12-11] MEDS: ROSUVASTATIN 10 MG TAB (CRESTOR) PO SCH (09:10)
[2018-12-11] MEDS: OMEPRAZOLE 20 MG CAP PO SCH (09:10)
[2018-12-11] MEDS: MOM 30ML SUSPENSION UDC PO SCH ×2 (09:10→20:50)
[2018-12-11] MEDS: ASPIRIN 81 MG ENTERIC TAB PO SCH (09:10)
[2018-12-11] MEDS: BISOPROLOL FUMARATE 5 MG TAB PO SCH (09:15)
[2018-12-11] MEDS: amLODIPine 10 MG TAB PO SCH (09:16)
[2018-12-11] MEDS: NS 1,000 ML IV SCH ×2 (09:57→20:50)
[2018-12-11] MEDS: MORPHINE 2 MG/ML 1ML VIAL (J2270) IV PRN (09:58)
--- NOTE | 2018-12-11 10:42 | IPNPDOC ---
Text Note Date of Service The patient was seen on 12/11/18. NOTE Over the weekend he developed some inflammation and drainage around the RUQ port site. CT showed that it is communicating with an intraabdominal abscess. Pain is still present, but it is improving slowly. Plan is for IR drainage today. VSSAF NAD abd - soft, TTP diffuse with the strongest pain in the RUQ, non distended, there is active purulent drainage from the RUQ. labs - below A) 58y/o male s/p RA beau for acute cholecystitis and gallstone pancreatitis, RUQ abscess P) reg diet PO and IV pain control ambulate IVF monitor labs wean pain meds amb in [place] encourage PO food intake ensure TID IR for drain placement today will plan for dc once pain is controlled. Dewey Smith DO VS,Fishhunge, I+O VS, Fishbone, I+O Vital Signs Date Time Temp Pulse Resp B/P (MAP) Pulse Ox O2 Delivery O2 Flow Rate FiO2 12/11/18 10:08 20 12/11/18 09:16 64 166/73 12/11/18 07:00 Room Air 12/11/18 06:00 98.3 99 12/05/18 09:00 2.0 I&O- Last 24 Hours up to 6 AM 12/11/18 06:00 Intake Total 3110 ml Output Total 4475 ml Balance -1365 ml MIGUEL SMITH DO Dec 11, 2018 10:42
[2018-12-11] MEDS: CIPROFLOXACIN 400 MG in IV 1 EA IV SCH ×2 (11:06→22:18)
[2018-12-11 13:07] LABS: ALBUMIN 2.2 GM/DL (3.2-5.2); ALT/SGPT 24 U/L (12-78); BILIRUBIN,TOTAL 0.5 MG/DL (0.2-1.0); BLOOD UREA NITROGEN 8 MG/DL (7-18); CALCIUM LEVEL 8.3 MG/DL (8.5-10.1); CARBON DIOXIDE LEVEL 28 MEQ/L (21-32); CHLORIDE LEVEL 102 MEQ/L (98-107); CREATININE FOR GFR 0.83 MG/DL (0.70-1.30); GLOMERULAR FILTRATION RATE > 60.0 (>56); GLUCOSE, FASTING 191 MG/DL (70-100); POTASSIUM SERUM 4.2 MEQ/L (3.5-5.1); SODIUM LEVEL 138 MEQ/L (136-145); TOTAL PROTEIN 5.8 GM/DL (6.4-8.2)
[2018-12-11] MEDS ORDERED: LIDOCAINE 1% MDV 20ML VIAL As Ordered ONE (13:15)
--- NOTE | 2018-12-11 17:34 | REP ---
CT-GUIDED RIGHT UPPER QUADRANT ABSCESS DRAIN The procedure was performed under the direct supervision of Dr. Tanner. The patient has a history of a complex collection of gas and small amounts of fluid as well as inflammatory stranding seen from the spenser hepatis through the gallbladder fossa to the periphery/subcapsular liver and extending into the lateral peritoneal space between the liver and the anterior abdominal wall seen on a previous CT scan dated 12/10/2018. The risks and benefits of the procedure were explained to the patient and informed consent was obtained. The abscess was localized using CT guidance. The skin was prepped and draped in a sterile fashion. 1% lidocaine was used as a local anesthetic. Using CT guidance a 10-[place] Skater APDL catheter was inserted using trocar technique. 20 ml of light brown/yellow colored fluid was withdrawn and sent to lab for analysis. The cavity was flushed with 5 ml of sterile saline. The catheter was affixed to the skin and a sterile dressing was applied. The catheter was connected to a gravity drainage bag. The patient tolerated the procedure well and there were no immediate complications. After the appropriate amount of monitored convalescence the patient was discharged from the department. Electronically Signed by DANITA Quezada 12/11/2018 03:00 P Electronically Signed by Tarun Tanner MD 12/11/2018 05:25 P
[2018-12-11 22:00] VITALS: BP 142/70
[2018-12-12] MEDS: metroNIDAZOLE 500 MG in IV 1 EA IV SCH ×2 (03:13→12:37)
[2018-12-12 06:00] VITALS: BP 152/77
[2018-12-12] MEDS: NORCO, ANEXSIA 5/325MG TABLET (HYDROcodone/ACETAMINOPHEN) PO PRN ×2 (07:39→15:04)
[2018-12-12] MEDS: NS 1,000 ML IV SCH ×3 (08:36→17:56)
[2018-12-12] MEDS: FOLIC ACID 1 MG TAB PO SCH (09:34)
[2018-12-12] MEDS: ASPIRIN 81 MG ENTERIC TAB PO SCH (09:34)
[2018-12-12] MEDS: OMEPRAZOLE 20 MG CAP PO SCH (09:34)
[2018-12-12] MEDS: ROSUVASTATIN 10 MG TAB (CRESTOR) PO SCH (09:35)
[2018-12-12] MEDS: SENNA 8.6 MG TAB (SENOKOT) PO SCH ×2 (09:35→20:47)
[2018-12-12] MEDS: MOM 30ML SUSPENSION UDC PO SCH ×2 (09:35→20:47)
[2018-12-12] MEDS: amLODIPine 10 MG TAB PO SCH (09:37)
[2018-12-12] MEDS: BISOPROLOL FUMARATE 5 MG TAB PO SCH (09:37)
[2018-12-12] MEDS: CIPROFLOXACIN 400 MG in IV 1 EA IV SCH (11:08)
--- NOTE | 2018-12-12 13:02 | IPNPDOC ---
Text Note Date of Service The patient was seen on 12/12/18. NOTE No acute events overnight. Pain is still present, but it is improving slowly. He is tolerating diet, ambulating in the halls, and having BMs. VSSAF NAD abd - soft, TTP diffuse with the strongest pain in the RUQ, non distended, there is active purulent drainage from the RUQ, but it has slowed down, there is some slightly bilious cloudy fluid from the RUQ drain as well. labs - below A) 58y/o male s/p RA beau for acute cholecystitis and gallstone pancreatitis, RUQ abscess s/p IR drainage P) reg diet PO and IV pain control ambulate monitor labs wean pain meds amb in [place] encourage PO food intake encouraged ambulation and heat pads today, will attempt to drain skin site in am and then hopefully d/c home will plan for dc once pain is controlled. Dewey Smith DO VS,Fishbone, I+O VS, Fishbone, I+O Vital Signs Date Time Temp Pulse Resp B/P (MAP) Pulse Ox O2 Delivery O2 Flow Rate FiO2 12/12/18 09:37 62 161/75 12/12/18 08:09 20 12/12/18 06:00 97.4 98 NIPPV (BIPAP/CPAP) I&O- Last 24 Hours up to 6 AM 12/12/18 06:00 Intake Total 4260 ml Output Total 3540 ml Balance 720 ml MIGUEL SMITH DO Dec 12, 2018 13:02
[2018-12-12 14:00] VITALS: BP 164/53
[2018-12-12] MEDS ORDERED: metroNIDAZOLE (FLAGYL) 500 MG TAB PO SCH (21:00)
[2018-12-12 22:00] VITALS: BP 143/66
[2018-12-13] MEDS: NORCO, ANEXSIA 5/325MG TABLET (HYDROcodone/ACETAMINOPHEN) PO PRN (02:02)
[2018-12-13 06:00] VITALS: BP 151/69
[2018-12-13] MEDS ORDERED: CIPROFLOXACIN 500 MG TAB PO SCH (06:00)
[2018-12-13 07:09] LABS: HEMATOCRIT 35.9 % (42.0-52.0); HEMOGLOBIN 11.2 g/dl (13.5-17.5); MEAN CORPUSCULAR HEMOGLOBIN 29.4 pg (27.0-33.0); MEAN CORPUSCULAR HGB CONC 31.2 g/dl (32.0-36.5); MEAN CORPUSCULAR VOLUME 94.2 fl (80.0-96.0); PLATELET COUNT, AUTOMATED 329 10^3/uL (150-450); RED BLOOD COUNT 3.81 10^6/uL (4.30-6.10)
[2018-12-13 07:34] LABS: ALBUMIN 2.4 GM/DL (3.2-5.2); ALT/SGPT 22 U/L (12-78); BILIRUBIN,TOTAL 0.4 MG/DL (0.2-1.0); BLOOD UREA NITROGEN 8 MG/DL (7-18); CALCIUM LEVEL 8.6 MG/DL (8.5-10.1); CARBON DIOXIDE LEVEL 29 MEQ/L (21-32); CHLORIDE LEVEL 104 MEQ/L (98-107); CREATININE FOR GFR 0.93 MG/DL (0.70-1.30); GLOMERULAR FILTRATION RATE > 60.0 (>56); GLUCOSE, FASTING 198 MG/DL (70-100); POTASSIUM SERUM 3.4 MEQ/L (3.5-5.1); SODIUM LEVEL 138 MEQ/L (136-145); TOTAL PROTEIN 7.1 GM/DL (6.4-8.2)
[2018-12-13] MEDS ORDERED: HYDR-4571 PO (08:20)
[2018-12-13] MEDS ORDERED: SULF1TAB93 PO (08:20)
[2018-12-13] MEDS ORDERED: LEVA750T7 PO (08:20)
[2018-12-13] MEDS: SENNA 8.6 MG TAB (SENOKOT) PO SCH (09:00)
[2018-12-13] MEDS ORDERED: BACTRIM 160MG/800MG DS TAB PO SCH (09:00)
[2018-12-13] MEDS: MOM 30ML SUSPENSION UDC PO SCH (09:00)
--- NOTE | 2018-12-13 09:12 | DSES ---
DATE OF ADMISSION: 12/07/2018 DATE OF DISCHARGE: 12/13/2018 ADMISSION DIAGNOSIS: Gallstone pancreatitis. DISCHARGE DIAGNOSIS: Gallstone pancreatitis. HOSPITAL COURSE: The patient was admitted on the 12/04/2018 for elective robotic cholecystectomy. The surgery was complicated due to extensive inflammation. Postoperatively, he had severe pain and was kept overnight. By postop day 1 he was still having severe pains in the right upper quadrant, difficult to ambulate or even take a deep breath, likely due to all the severe inflammation in the liver bed. By postop day 3, his drain was draining serosanguineous fluid. His pain with slightly improved so his drain was removed that was underneath the hepatic fossa, which did help improve his pain slightly, but he still had pain to severe to be discharged home. Over the weekend, he started to develop some cellulitis from his right sided port site with a little bit of purulent drainage. CT abdomen showed that there was a likely abscess in the subhepatic fossa that was draining out through that site. He was kept over the weekend on antibiotics. Tuesday morning he had a drain placed. Since then, his pain has been improving dramatically, his inflammation and the skin has also improved and the drainage from the skin has stopped. Plan is to discharge home today on Bactrim and Levaquin p.o. He will keep the drain in place. He will followup with me in the office next Tuesday to have the drain removed. He is also sent home with some Correll for pain. All of his questions are answered. He will followup with me soon.
[2018-12-13] MEDS: ASPIRIN 81 MG ENTERIC TAB PO SCH (09:43)
[2018-12-13] MEDS: ROSUVASTATIN 10 MG TAB (CRESTOR) PO SCH (09:43)
[2018-12-13] MEDS: FOLIC ACID 1 MG TAB PO SCH (09:43)
[2018-12-13] MEDS: OMEPRAZOLE 20 MG CAP PO SCH (09:43)
[2018-12-13 09:45] VITALS: BP 162/76
[2018-12-13] MEDS: BISOPROLOL FUMARATE 5 MG TAB PO SCH (09:45)
[2018-12-13] MEDS: amLODIPine 10 MG TAB PO SCH (09:45)
[2018-12-13] MEDS ORDERED: NORCO, ANEXSIA 5/325MG TABLET (HYDROcodone/ACETAMINOPHEN) PO ONE (11:45)
[2018-12-14] MEDS ORDERED: LevoFLOXacin 750 MG TABLET PO SCH (06:00)
== END 2018-12-13 12:52 | disposition home or self-care (01) | DRG 263 ==
LOC: M SDC 13:28 → M MSPAV 20:20 → M SDC 12-07 02:08
PROVIDERS: ADMIT Surgery; ATTEND Surgery
PROC: 8E0W4CZ Robotic Assisted Procedure of Trunk Region, Percutaneous Endoscopic Approach (ICD-10-PCS; 2018-12-04)
PROC: 0FT44ZZ Resection of Gallbladder, Percutaneous Endoscopic Approach (ICD-10-PCS; principal; 2018-12-04 15:00)
PROC: 0W9G30Z Drainage of Peritoneal Cavity with Drainage Device, Percutaneous Approach (ICD-10-PCS; 2018-12-11)
DX: K80.00 Calculus of gallbladder with acute cholecystitis without obstruction (principal); K85.10 Biliary acute pancreatitis without necrosis or infection; K65.1 Peritoneal abscess; K21.9 Gastro-esophageal reflux disease without esophagitis; E11.9 Type 2 diabetes mellitus without complications; I10 Essential (primary) hypertension; G47.30 Sleep apnea, unspecified; F41.9 Anxiety disorder, unspecified; F32.9 Major depressive disorder, single episode, unspecified; Z79.84 Long term (current) use of oral hypoglycemic drugs; Z79.82 Long term (current) use of aspirin

== ENCOUNTER 2018-12-19 14:01 | Emergency (ER) | payer OTHER, SELFPAY ==
[~2018-12-19 14:01] MED LIST changes: +BISO5TAB14 PO; -BISO5TAB9 PO; +HYDR-4571 PO; +LEVA750T7 PO; -LR 1,000 ML IV ONE; +SULF1TAB93 PO
[2018-12-19 14:54] LABS: BASO % 0.2 % (0.0-1.0); EOS % 0.4 % (0.0-3.0); HEMATOCRIT 37.2 % (42.0-52.0); HEMOGLOBIN 11.7 g/dl (13.5-17.5); LYMPH % 12.3 % (24.0-44.0); MEAN CORPUSCULAR HEMOGLOBIN 28.8 pg (27.0-33.0); MEAN CORPUSCULAR HGB CONC 31.5 g/dl (32.0-36.5); MEAN CORPUSCULAR VOLUME 91.6 fl (80.0-96.0); MONO # 0.5 10^3/uL (0.0-0.8); MONO % 6.2 % (0.0-5.0); NEUTROPHILS # 6.6 10^3/uL (1.5-8.5); NEUTROPHILS % 80.3 % (36.0-66.0); PLATELET COUNT, AUTOMATED 456 10^3/uL (150-450); RED BLOOD COUNT 4.06 10^6/uL (4.30-6.10); WHITE BLOOD COUNT 8.2 10^3/uL (4.0-10.0)
[2018-12-19 15:22] LABS: ALBUMIN 3.3 GM/DL (3.2-5.2); BILIRUBIN,DIRECT 0.1 MG/DL (0.0-0.2); BILIRUBIN,TOTAL 0.4 MG/DL (0.2-1.0); CALCIUM LEVEL 9.8 MG/DL (8.5-10.1); CREATININE FOR GFR 1.35 MG/DL (0.70-1.30); GLOMERULAR FILTRATION RATE 57.6 (>56); POTASSIUM SERUM 5.1 MEQ/L (3.5-5.1); TOTAL PROTEIN 8.4 GM/DL (6.4-8.2)
[2018-12-19] MEDS ORDERED: ISOVUE-370 76% 100ML VIAL (Q9967) As Ordered ONE (15:40)
[2018-12-19] MEDS ORDERED: MORPHINE 2 MG/ML 1ML VIAL (J2270) IV PRN ×2 (16:30)
--- NOTE | 2018-12-19 16:35 | REP ---
CT abdomen and pelvis with IV but without oral contrast: History: Pain and swelling. Comparison CT study December 10, 2018. October 19, 2018 prior study is also reviewed. The patient is status post recent cholecystectomy with abdominal wall and gallbladder fossa abscess. On December 11, 2018 a percutaneous drain was placed under CT guidance. CT contrast dose: A 100 ml of intravenous Isovue [address] findings: Digital preliminary felt tipping machine tender radiograph demonstrates pigtail percutaneous catheter in the right upper quadrant and a biliary stent in place. The bowel gas pattern is normal. There is mild plate-like atelectasis in the left lower lobe on axial CT images. Images taken in the subhepatic region demonstrate the recently placed percutaneous drainage catheter in the gallbladder fossa with improvement in the fluid collection and in the extent and number of air bubbles. There is still a small quantity of peritoneal fluid anterior to the gallbladder fossa along the anterior capsule of the liver. There is a small amount of fluid in the subcapsular or pericapsular distribution at the inferior edge of the liver as well. This inferior perihepatic fluid collection measures 1.4 cm in greatest craniocaudal span by 3.9 cm anterior to posterior by 2.9 cm right to left. There is air and some fluid in a more superior anterior peritoneal fluid collection. These show some improvement from December 10, 2018. No new abscess is appreciated. There is some residual subcutaneous air and thickening in the anterior abdominal wall inferior to the catheter drainage site. No drainable fluid collection is seen at present. The CBD stent appears in good position. Small and large bowel loops are unremarkable. Impression: Improvement noted post catheter drainage right gallbladder fossa. There is some residual fluid at the inferior margin of the liver and a small residual peritoneal air and fluid collection is seen anterior to the left lobe of the liver. These have improved. No new collection is appreciated. There is subcutaneous air and some edema in the extra abdominal anterior abdominal wall laterally. This also is improved. Electronically Signed by Tarun Tanner MD 12/19/2018 05:59 P
[2018-12-19 18:23] VITALS: BP 134/71
--- NOTE | 2018-12-19 23:25 | ECGEPIP ---
[facility] - ED Test Date: 2018-12-19 Pat Name: OMAR WALLS Department: Room: - Gender: Male Tamper Operator: EASTON : 1960 Requested By: CARLOS Levy Order Number: [id number] Reading MD: Rojas Heath Measurements Intervals Mckenzie Rate: 55 P: -19 AR: 221 QRS: -18 QRSD: 155 T: 28 QT: 455 QTc: 439 Interpretive Statements SINUS BRADYCARDIA WITH FIRST DEGREE AV BLOCK RIGHT BUNDLE BRANCH BLOCK SIMILAR TO 12/04/18 Electronically Signed on 12-19-2018 23:24:49 EST by Rojas Heath
[2018-12-29] MEDS ORDERED: [UNRECOGNIZED DRUG - CODE] PO (10:55)
[2018-12-29] MEDS ORDERED: SERT-141 PO (11:13)
[2018-12-29] MEDS ORDERED: LASI40TA9 PO (11:13)
== END 2018-12-19 18:29 | disposition home or self-care (01) ==
LOC: M ED 14:01
DX: R10.9 Unspecified abdominal pain (principal); R00.1 Bradycardia, unspecified; I44.0 Atrioventricular block, first degree; I45.10 Unspecified right bundle-branch block; E11.9 Type 2 diabetes mellitus without complications; I10 Essential (primary) hypertension; G47.30 Sleep apnea, unspecified; K21.9 Gastro-esophageal reflux disease without esophagitis; Z79.82 Long term (current) use of aspirin; Z79.899 Other long term (current) drug therapy
CPT/HCPCS: 74177; 80048; 80076; 83605; 83690; 85025; 93005; 96374; 96376; 99284; J2270; Q9967

== ENCOUNTER → 2019-01-01 | Outpatient (CLI) | payer OTHER, SELFPAY ==
[~2019-01-01] MED LIST changes: +LASI40TA9 PO; +[UNRECOGNIZED DRUG - CODE] PO
[2019-01-01 14:14] LABS: BASO % 0.2 % (0.0-1.0); EOS # 0.3 10^3/uL (0.0-0.5); EOS % 5.7 % (0.0-3.0); HEMATOCRIT 34.3 % (42.0-52.0); HEMOGLOBIN 10.9 g/dl (13.5-17.5); LYMPH % 21.8 % (24.0-44.0); MEAN CORPUSCULAR HEMOGLOBIN 28.9 pg (27.0-33.0); MEAN CORPUSCULAR HGB CONC 31.8 g/dl (32.0-36.5); MONO # 0.4 10^3/uL (0.0-0.8); MONO % 8.3 % (0.0-5.0); NEUTROPHILS # 2.9 10^3/uL (1.5-8.5); NEUTROPHILS % 63.6 % (36.0-66.0); PLATELET COUNT, AUTOMATED 220 10^3/uL (150-450); RED BLOOD COUNT 3.77 10^6/uL (4.30-6.10); WHITE BLOOD COUNT 4.6 10^3/uL (4.0-10.0)
[2019-01-01 14:51] LABS: ALBUMIN 3.6 GM/DL (3.2-5.2); ALT/SGPT 31 U/L (12-78); BILIRUBIN,DIRECT 0.1 MG/DL (0.0-0.2); BILIRUBIN,TOTAL 0.4 MG/DL (0.2-1.0); BLOOD UREA NITROGEN 9 MG/DL (7-18); CREATININE FOR GFR 1.06 MG/DL (0.70-1.30); FERRITIN 66 NG/ML (26-388); GLOMERULAR FILTRATION RATE > 60.0 (>56); IRON (FE) 48 UG/DL (65-175); PERCENT SATURATION 13.2 % (19.7-50.0); TOTAL IRON BINDING CAPACITY 363 UG/DL (250-450); TOTAL PROTEIN 7.3 GM/DL (6.4-8.2)
[2019-01-01 14:54] LABS: FOLATE > 24.0 NG/ML
[2019-01-01 15:17] LABS: VITAMIN B12 LEVEL 596 PG/ML
== END ==
LOC: M LAB 13:32
PROVIDERS: ATTEND Internal Medicine Gastroenterology
DX: R10.13 Epigastric pain (principal)

== ENCOUNTER 2019-01-03 10:51 | Day surgery (SDC) | payer OTHER, SELFPAY ==
[~2019-01-03] VITALS: Ht 190.5 cm; Wt 108.9 kg
[~2019-01-03 10:51] MED LIST changes: +NS 1,000 ML IV ONE
[2019-01-03] MEDS ORDERED: ISOVUE-300 61% 50ML VIAL (Q9967) As Ordered ONE (11:58)
[2019-01-03] MEDS ORDERED: propofoL 200 MG/20 ML VIAL As Ordered ONE (12:12)
[2019-01-03] MEDS ORDERED: LIDOCAINE 2% INJ 100 MG/5 ML SDV (FOR ANES.) As Ordered ONE (12:12)
[2019-01-03] MEDS ORDERED: ROCURONIUM BROMIDE 50 MG/5 ML VIAL As Ordered ONE (12:14)
[2019-01-03] MEDS ORDERED: MIDAZOLAM INJ 2 MG/2 ML VIAL (J2250) As Ordered ONE (12:14)
[2019-01-03] MEDS ORDERED: dexameTHASONE 4 MG/ML 1ML VIAL (J1100) As Ordered ONE (12:15)
[2019-01-03] MEDS ORDERED: fentaNYL 100 MCG/2 ML INJECTION (J3010) As Ordered ONE (12:15)
[2019-01-03] MEDS ORDERED: ePHEDrine SULFATE 25 MG/5 ML(5MG/ML) SYRINGE As Ordered ONE (13:06)
[2019-01-03] MEDS ORDERED: SUCCINYLCHOLINE 100 MG/5 ML SYRINGE (J0330) As Ordered ONE (13:06)
--- NOTE | 2019-01-03 13:59 | ROOR ---
Patient Name: Slick Reeves Procedure Date: 01/03/2019 11:06 AM Date of : 1960 Age: 58 Room: Main OR Gender: Male Note Status: Finalized Procedure: ERCP Indications: Common bile duct stone(s), Biliary stent removal Providers: Boris Madison MD Referring MD: Celeste Romeor NP Requesting Provider: Medicines: Monitored Anesthesia Care Complications: No immediate complications. Procedure: Pre-Anesthesia Assessment: - Prior to the procedure, a History and Physical was performed, and patient medications and allergies were reviewed. The patient is competent. The risks and benefits of the procedure and the sedation options and risks were discussed with the patient. All questions were answered and informed consent was obtained. Patient identification and proposed procedure were verified by the physician, the nurse and the anesthesiologist in the procedure room. Mental Status Examination: alert and oriented. Airway Examination: normal oropharyngeal airway and neck mobility. Respiratory Examination: clear to auscultation. CV Examination: normal. Prophylactic Antibiotics: The patient does not require prophylactic antibiotics. Prior Anticoagulants: The patient has taken no previous anticoagulant or antiplatelet agents. ASA Grade Assessment: III - A patient with severe systemic disease. After reviewing the risks and benefits, the patient was deemed in satisfactory condition to undergo the procedure. The anesthesia plan was to use monitored anesthesia care (MAC). Immediately prior to administration of medications, the patient was re-assessed for adequacy to receive sedatives. The heart rate, respiratory rate, oxygen saturations, blood pressure, adequacy of pulmonary ventilation, and response to care were monitored throughout the procedure. The physical status of the patient was re-assessed after the procedure. The Duodenoscope was introduced through the mouth, and advanced to the duodenum and used to inject contrast into the bile duct. The ERCP was accomplished without difficulty. The patient tolerated the procedure well. Findings: A athletic scout film of the abdomen was obtained. No stents were present. The esophagus was successfully intubated under direct vision. The scope was advanced to a normal major papilla in the descending duodenum without detailed examination of the pharynx, larynx and associated structures, and upper GI tract. The upper GI tract was grossly normal. A 0.035 inch x 260 cm straight Hydra Jagwire was passed into the biliary tree. The short-nosed traction sphincterotome was passed over the guidewire and the bile duct was then deeply cannulated. Contrast was injected. I personally interpreted the bile duct images. Ductal flow of contrast was adequate. Image quality was adequate. Contrast extended to the entire biliary tree. A long cystic duct stump originated in the middle third of the main bile duct. There was no extravasation of contrast. The main bile duct was borderline dilated, acquired. The largest diameter was 10 mm. A 2 mm biliary sphincterotomy was made with a monofilament traction (standard) sphincterotome using ERBE electrocautery. There was no post-sphincterotomy bleeding. The biliary tree was swept with a 10 mm balloon starting at the bifurcation. Nothing was found. Occlusion cholangiogram at the end of the procedure did not show any residual filling defects. Pancreatic duct was neither cannulated nor opacified. Impression: - The entire main bile duct was borderline dilated, acquired. - The patient has had a cholecystectomy. - A biliary sphincterotomy was performed. - The biliary tree was swept and nothing was found. Recommendation: - The patient will be observed post-procedure, until all discharge criteria are met. - Patient has a contact number available for emergencies. The signs and symptoms of potential delayed complications were discussed with the patient. Return to normal activities tomorrow. Written discharge instructions were provided to the patient. - Avoid aspirin and nonsteroidal anti-inflammatory medicines. - Clear liquid diet for 1 day, then advance as tolerated to high fiber diet. - Continue present medications. - Refer to an ENT specialist due to vocal cord lesions increasing in size as per the anesthesia observation (obtain referral from PCP). - Telephone GI clinic if symptomatic. Please call GI clinic @ [phone] or [phone]. - Return to primary care physician. Boris Madison MD Boris Madison MD 01/03/2019 1:58:55 PM Electronically signed by Boris Madison MD Number of Addenda: 0 Note Initiated On: 01/03/2019 11:06 AM Estimated Blood Loss: Estimated blood loss: none.
--- NOTE | 2019-01-03 14:02 | REP ---
C-arm views for ERCP: C-arm views are performed of the right upper quadrant during ERCP exam. The common bile duct is catheterized. Contrast partially opacifies the common bile duct. Catheter manipulation is performed. 30 seconds fluoroscopy time utilized. Electronically Signed by Miki Palencia MD 01/03/2019 02:07 P
[2019-01-03] MEDS ORDERED: fentaNYL 100 MCG/2 ML INJECTION (J3010) IV PRN (14:15)
[2019-01-03] MEDS ORDERED: ONDANSETRON 4MG/2ML VIAL (J2405) IV PRN (14:15)
[2019-01-03] MEDS ORDERED: LR 1,000 ML IV SCH ×2 (14:15→14:45)
[2019-01-03 16:35] VITALS: BP 175/84
== END 2019-01-03 16:50 | disposition home or self-care (01) ==
LOC: M SDC 10:51
PROVIDERS: ATTEND Internal Medicine Gastroenterology
DX: K83.8 Other specified diseases of biliary tract (principal); Z90.49 Acquired absence of other specified parts of digestive tract; I10 Essential (primary) hypertension; K21.9 Gastro-esophageal reflux disease without esophagitis; G47.30 Sleep apnea, unspecified; F41.9 Anxiety disorder, unspecified; F32.9 Major depressive disorder, single episode, unspecified; E11.40 Type 2 diabetes mellitus with diabetic neuropathy, unspecified; E78.00 Pure hypercholesterolemia, unspecified; M19.90 Unspecified osteoarthritis, unspecified site; M54.9 Dorsalgia, unspecified; L30.9 Dermatitis, unspecified; Z79.899 Other long term (current) drug therapy; Z79.82 Long term (current) use of aspirin; Z86.14 Personal history of Methicillin resistant Staphylococcus aureus infection
CPT/HCPCS: 43262; 43273; 74330; J0330; J1100; J2250; J2405; J3010; Q9967

== ENCOUNTER → 2019-07-19 | Outpatient (CLI) | payer BC ==
[~2019-07-19] MED LIST changes: -NS 1,000 ML IV ONE; +OXYC-1 PO; -OXYC15TA76 PO
[2019-07-19 10:45] LABS: BASO % 0.3 % (0.0-1.0); EOS # 0.1 10^3/uL (0.0-0.5); EOS % 0.9 % (0.0-3.0); HEMATOCRIT 44.2 % (42.0-52.0); LYMPH # 1.6 10^3/uL (1.5-5.0); LYMPH % 24.7 % (24.0-44.0); MEAN CORPUSCULAR HEMOGLOBIN 31.6 pg (27.0-33.0); MEAN CORPUSCULAR HGB CONC 33.9 g/dl (32.0-36.5); MEAN CORPUSCULAR VOLUME 93.1 fl (80.0-96.0); MONO # 0.5 10^3/uL (0.0-0.8); MONO % 8.3 % (0.0-5.0); NEUTROPHILS # 4.2 10^3/uL (1.5-8.5); NEUTROPHILS % 64.3 % (36.0-66.0); PLATELET COUNT, AUTOMATED 167 10^3/uL (150-450); RED BLOOD COUNT 4.75 10^6/uL (4.30-6.10); WHITE BLOOD COUNT 6.5 10^3/uL (4.0-10.0)
[2019-07-19 11:03] LABS: HEMOGLOBIN A1c 8.6 %
[2019-07-19 11:10] LABS: ERYTHROCYTE SEDIMENTATION RATE 5 mm/hr (0-20)
[2019-07-19 12:43] LABS: ALBUMIN 4.1 GM/DL (3.2-5.2); ALT/SGPT 60 U/L (12-78); BLOOD UREA NITROGEN 30 MG/DL (7-18); CALCIUM LEVEL 9.5 MG/DL (8.5-10.1); CARBON DIOXIDE LEVEL 30 MEQ/L (21-32); CHLORIDE LEVEL 97 MEQ/L (98-107); CREATININE FOR GFR 1.43 MG/DL (0.70-1.30); FREE T4 1.11 NG/DL (0.76-1.46); GLOMERULAR FILTRATION RATE 53.9 (>56); GLUCOSE, FASTING 242 MG/DL (70-100); POTASSIUM SERUM 4.4 MEQ/L (3.5-5.1); SODIUM LEVEL 134 MEQ/L (136-145); THYROID STIMULATING HORMONE 0.728 uIU/ML (0.358-3.740)
[2019-07-19 14:10] LABS: FOLATE > 24.0 NG/ML; VITAMIN B12 LEVEL 1024 PG/ML
[2019-07-23 01:11] LABS: ANTINUCLEAR ANTIBODIES DIRECT Negative (Negative); VITAMIN B1 LEVEL WHOLE BLOOD 148.4 nmol/L (66.5-200.0); VITAMIN B6,PYRIDOXAL PHOSPHATE 16.7 ug/L (5.3-46.7); VITAMIN E(ALPHA TOCOPHEROL) 8.5 mg/L (7.0-25.1); VITAMIN E(GAMMA TOCOPHEROL) 1.4 mg/L (0.5-5.5)
[2019-07-24 15:48] LABS: ALBUMIN 4.83 GM/DL (3.29-5.55); ALBUMIN % 60.4 % (55.8-66.1); ALPHA-1-GLOBULIN % 2.7 % (2.9-4.9); ALPHA-1-GLOBULINS 0.22 GM/DL (0.17-0.41); ALPHA-2-GLOBULINS 0.86 GM/DL (0.42-0.99); ALPHA-2-GLOBULINS % 10.8 % (7.1-11.8); BETA-1-GLOBULINS 0.56 GM/DL (0.28-0.60); BETA-2-GLOBULINS 0.42 GM/DL (0.19-0.55); BETA-2-GLOBULINS % 5.3 % (3.2-6.5); GAMMA GLOBULIN % 13.8 % (11.1-18.8)
== END ==
LOC: M LAB 10:16
PROVIDERS: ATTEND Psychiatry & Neurology Neurology
DX: E11.9 Type 2 diabetes mellitus without complications (principal); E07.9 Disorder of thyroid, unspecified; G62.9 Polyneuropathy, unspecified

== ENCOUNTER → 2019-10-17 | Outpatient (REF) | payer BC ==
[~2019-10-17] MED LIST changes: -AMLO10TA5 PO; +AMLO1TAB25 PO; -ENAL20TA PO; +ENAL20TA11 PO; +PANT40TA29 PO; -PANT40TA3 PO
== END ==
LOC: M LAB REF 17:03
PROVIDERS: ATTEND Physician Assistant Medical
DX: L03.116 Cellulitis of left lower limb (principal); B95.62 Methicillin resistant Staphylococcus aureus infection as the cause of diseases classified elsewhere

== ENCOUNTER → 2020-04-09 | Outpatient (CLI) | payer BC ==
[~2020-04-09] MED LIST changes: +GABA-282 PO; -GABA-843 PO; -LISI-538 PO; +LISI20TA33 PO
--- NOTE | 2020-04-09 12:48 | REP ---
INDICATION: CHRONIC VENOUS HYPERTENSION, ULCER LEFT LOWER EXT COMPARISON: None. TECHNIQUE: Palencia scale and color Doppler evaluation left lower extremity using linear high frequency transducer including reflux evaluation. FINDINGS: Ultrasound examination of the left lower extremity deep venous structures from the common femoral vein to the popliteal vein demonstrates normal compressibility flow and wave patterns in response to respiration and augmentation. There is no evidence for deep venous thrombosis. Evaluation for reflux demonstrates only minimal reflux in the lesser saphenous vein on standing draining into Giacomini vein in the posterior thigh. IMPRESSION: No evidence for deep venous thrombosis. Minimal reflux on standing only noted in the lesser saphenous vein. <Electronically signed by Nakul Soto > 04/09/20 [id number]
== END ==
LOC: M RAD 11:33
PROVIDERS: ATTEND Surgery
DX: I87.312 Chronic venous hypertension (idiopathic) with ulcer of left lower extremity (principal); L97.822 Non-pressure chronic ulcer of other part of left lower leg with fat layer exposed

== ENCOUNTER → 2020-04-24 | Outpatient (CLI) | payer BC ==
[~2020-04-24] MED LIST changes: +E-Z-GAS II EFFERVESCENT PACKET (SODIUM BICARB./CITRIC ACID/SIMETHICONE) As Ordered ONE; +E-Z-HD 98% w/w 340GM SUSP BTL As Ordered ONE; +E-Z-PAQUE 96% w/w SUSP 176GM BTL As Ordered ONE
--- NOTE | 2020-04-24 14:35 | REP ---
INDICATION: GERD. COMPARISON: None TECHNIQUE: This procedure was performed by Letitia Loya, [facility], under the direct supervision of Dr. Tanner. Images were reviewed with Dr. Tanner prior to dictation. Liquid barium and gas producing crystals were given in the erect position, as well as liquid barium in the prone oblique position in order to perform a double contrast upper GI examination. FINDINGS: The automobile seat cover installer film shows no organomegaly or pathological masses. The intestinal gas pattern is unremarkable. The oral and pharyngeal stages of deglutition were unremarkable. Esophageal transport is prompt and efficient and there is no evidence of esophagitis, stricture, or mucosal ring. There is evidence of a hiatal hernia. Gastroesophageal reflux was visualized to the level of the isabelle. The stomach strong are normally outlined. The rugal folds in the fundus of the stomach appears slightly thickened, most likely caused by gastritis. The duodenal strong are normally outlined. The mucosal folds are smooth and regular. There is no duodenitis, peptic ulcer disease or neoplasm. The visualized portion of the proximal small bowel appears normal in course and caliber. IMPRESSION: 1. Small hiatal hernia. 2. Reflux to the level of the isabelle. 3. Slightly thickened fundal gastric folds, most likely caused by gastritis. 0.7 minutes of fluoroscopy time was utilized for this procedure. Some fluoroscopic images are performed with last image hold technology. These images require no additional radiation. <Electronically signed by Letitia Loya > 04/24/20 1420 <Electronically signed by Maxwell Tanner > 04/24/20 [id number]
== END ==
LOC: M RAD 08:03
PROVIDERS: ATTEND Physician Assistant Medical
DX: K21.9 Gastro-esophageal reflux disease without esophagitis (principal); K44.9 Diaphragmatic hernia without obstruction or gangrene

== ENCOUNTER → 2020-06-03 | Outpatient (POV) | payer BC ==
[~2020-06-03] VITALS: Ht 190.5 cm; Wt 124.5 kg
[~2020-06-03] MED LIST changes: -E-Z-GAS II EFFERVESCENT PACKET (SODIUM BICARB./CITRIC ACID/SIMETHICONE) As Ordered ONE; -E-Z-HD 98% w/w 340GM SUSP BTL As Ordered ONE; -E-Z-PAQUE 96% w/w SUSP 176GM BTL As Ordered ONE
[2020-06-03 14:30] VITALS: BP 171/79
--- NOTE | 2020-06-04 15:05 | IRCOV ---
[facility] IR Consult Office Visit IR Consult Office Visit DATE: Jun 03, 2020 REASON FOR CONSULTATION/CHIEF COMPLAINT: Venous stasis ulcers. HISTORY OF PRESENT ILLNESS: 59-year-old male with nonpainful left lower extremity ulcers along the lateral malleolus. He states they have been there for several months and are getting worse. These are associated with lower extremity swelling and aching which is worse at the end of the day. He is on his feet all day. He has worn compression stockings in the past. He denies intermittent claudication. He denies pain with leg elevation. He denies prior cold leg or gangrene. He denies prior deep vein thrombosis. He denies chest pain, shortness of breath, orthopnea or paroxysmal nocturnal dyspnea. He does suffer with obstructive sleep apnea. He denies prior NM or stroke. He denies prior vein therapy. Patient has a vocal issue and strains to speak. He states he was evaluated for this and told that "something wraps around his vocal cords." ALLERGIES: Please see below. HOME MEDICATIONS: Please see below. PAST MEDICAL HISTORY: Hypertension Diabetes High cholesterol PAST SURGICAL HISTORY: eye surgery Post traumatic left great toe amputation Hernia repair FAMILY HISTORY: Noncontributory. SOCIAL HISTORY: Nonsmoker. Denies alcohol or drugs. REVIEW OF SYSTEMS: Otherwise negative. PHYSICAL EXAMINATION: VITAL SIGNS: Please see below. GENERAL APPEARANCE: Appears well. Comfortable at rest. Patient strains to speak. HEENT: No scleral icterus. RESPIRATORY: Normal breathing at rest. CARDIOVASCULAR: Normal rate. ABDOMEN: Distended. Soft nontender. EXTREMITIES: Left lower extremity: Edema to the knee. Lipodermatosclerosis. Hemosiderin deposition along the vidal and dorsum of the foot. Bulging varicose veins. Big toe amputation related to prior trauma. Ulcers along the left lateral malleolus. Skin temperature normal. Popliteal pulse 2+ DP/PT 2+ Right lower extremity: Edema to the knee. Lipodermatosclerosis. Hemosiderin deposition along the vidal and dorsum of the foot. Bulging varicose veins. Skin temperature normal. Popliteal pulse 2+ DP/PT 2+ NEUROLOGICAL: Alert and oriented. PSYCHIATRIC: Appropriate to circumstance. LABORATORY DATA: None recent Imaging: I personally reviewed the left lower extremity venous reflux study performed 04/09/2020. There is reflux in the lesser saphenous vein. ASSESSMENT/PLAN: 59-year-old male with chronic nonhealing left lower extremity venous ulcers and symptoms and signs of bilateral lower extremity venous hypertension. I agree patient would benefit from EVLT therapy. We discussed the risks and benefits of the procedure and patient would like to proceed. We'll schedule the patient for left lower extremity EVLT. His left greater saphenous vein will also be re-interrogated in the same setting. We will also order a right lower extremity standing venous reflux study given his symptomatology and physical findings of venous hypertension. I spent 30 minutes reviewing patient's records, imaging and in consultation with the patient. Thank you for this referral. Cc Jennifer Vides Allergies Coded Allergies: No Known Allergies (Verified , 12/29/18) Home Medications Scheduled Amlodipine Besylate (Amlodipine Besylate), 10 MG PO DAILY, (Reported) Aspirin (Aspirin EC), 81 MG PO DAILY, (Reported) Bisoprolol Fumarate (Bisoprolol Fumarate), 5 MG PO DAILY, (Reported) Folic Acid (Folic Acid), 1 MG PO DAILY, (Reported) Furosemide (Lasix), 40 MG PO DAILY, (Reported) Lansoprazole (Heartburn Treatment 24 Hour), 15 MG PO BID, (Reported) Methotrexate Sodium (Methotrexate), 10 MG PO 1XWK, (Reported) Rosuvastatin Calcium (Rosuvastatin Calcium), 20 MG PO DAILY, (Reported) Sertraline Hcl (Sertraline HCl), 50 MG PO DAILY, (Reported) VS, I&O, 24H, Fishbone Vital Signs/I&O Vital Signs Date Time Temp Pulse Resp B/P (MAP) Pulse Ox O2 Delivery O2 Flow Rate FiO2 06/03/20 14:30 99.0 44 16 171/79 (109) 97 Room Air PADILLA BREAUX MD Jun 04, 2020 15:05
== END ==
LOC: M IRPOV 14:31
PROVIDERS: ATTEND Radiology Diagnostic Radiology
DX: I87.2 Venous insufficiency (chronic) (peripheral) (principal); L97.329 Non-pressure chronic ulcer of left ankle with unspecified severity; I10 Essential (primary) hypertension; E11.622 Type 2 diabetes mellitus with other skin ulcer; E78.00 Pure hypercholesterolemia, unspecified; Z79.82 Long term (current) use of aspirin; Z79.899 Other long term (current) drug therapy

== ENCOUNTER → 2020-06-25 | Outpatient (CLI) | payer BC ==
[~2020-06-25] MED LIST changes: +BACTDSTA PO; +BASA100I SC; +FAMO20TA PO; +GNP200TA4 PO; +LIDOCAINE 1% MDV 20ML VIAL As Ordered ONE; +LIDOCAINE 2% MDV 20ML VIAL As Ordered ONE; +MIDAZOLAM INJ 2MG/2ML VIAL (J2250 PER 1MG) As Ordered ONE; +PROMETHAZINE INJ 25 MG/ML VIAL (J2550) As Ordered ONE; +RIFA30CA PO; -SULF1TAB93 PO; +VITMTA PO; +diphenhydrAMINE 50MG/ML VIAL (J1200) As Ordered ONE; +fentaNYL 100 MCG/2 ML INJECTION (J3010) As Ordered ONE
[2020-06-25 07:49] LABS: HEMATOCRIT 38.1 % (42.0-52.0); HEMOGLOBIN 12.2 g/dl (13.5-17.5); MEAN CORPUSCULAR HEMOGLOBIN 28.9 pg (27.0-33.0); MEAN CORPUSCULAR VOLUME 90.3 fl (80.0-96.0); PLATELET COUNT, AUTOMATED 191 10^3/uL (150-450); RED BLOOD COUNT 4.22 10^6/uL (4.30-6.10); WHITE BLOOD COUNT 5.8 10^3/uL (4.0-10.0)
--- NOTE | 2020-06-25 10:42 | IRHP ---
[facility] IR Pre-Procedure H & P General Date of Service: June 25, 2020 Procedure: Same Day Surgery Interval History and Physical I have seen the patient and reviewed last H & P performed within 30 days. There is no significant interval change. History of Present Illness Chief Complaint The patient is a 59-year-old male admitted with a reason for visit of Venous Ulcer. PRE-PROCEDURE DIAGNOSIS: Left lower extremity venous hypertension and venous ulcer HEART: Baseline bradycardia. LUNGS: Normal breathing at rest. ASA Classification ASA Classification: III-Severe systemic dis. Mallampati Score: II NPO: Yes Problems with prior sedation: No Obstructive Sleep Apnea: No Plan moderate sedation Allergies Coded Allergies: No Known Allergies (Verified , 12/29/18) Home Medications Scheduled Aspirin (Aspirin EC), 81 MG PO DAILY, (Reported) Bisoprolol Fumarate (Bisoprolol Fumarate), 5 MG PO DAILY, (Reported) Cimetidine (Cimetidine), 200 MG PO DAILY, (Reported) Cimetidine (Cimetidine), 200 MG PO QHS, (Reported) Famotidine (Famotidine), 20 MG PO BID, (Reported) Folic Acid (Folic Acid), 1 MG PO DAILY, (Reported) Insulin Glargine,Hum.rec.anlog (Basaglar Kwikpen U-100), 50 UNIT SC QHS, (Reported) Multivitamins (Thera M Plus Tablet), 1 TAB PO QAM, (Reported) Pantoprazole Sodium (Pantoprazole Sodium), 40 MG PO BID, (Reported) Rifampin (Rifampin), 300 MG PO DAILY, (Reported) Discontinued Medications Amlodipine Besylate (Amlodipine Besylate), 10 MG PO DAILY, (Reported) Discontinued Reason: Pt states not taking Furosemide (Lasix), 40 MG PO DAILY, (Reported) Discontinued Reason: Pt states not taking Lansoprazole (Heartburn Treatment 24 Hour), 15 MG PO BID, (Reported) Discontinued Reason: Pt states not taking Methotrexate Sodium (Methotrexate), 10 MG PO 1XWK, (Reported) Discontinued Reason: Pt states not taking Rosuvastatin Calcium (Rosuvastatin Calcium), 20 MG PO DAILY, (Reported) Discontinued Reason: Pt states not taking Sertraline Hcl (Sertraline HCl), 50 MG PO DAILY, (Reported) Discontinued Reason: Pt states not taking VS, I&O, 24H, Fishbone Vital Signs/I&O Vital Signs Date Time Temp Pulse Resp B/P (MAP) Pulse Ox O2 Delivery O2 Flow Rate FiO2 06/25/20 10:20 42 18 96 Nasal Cannula 2.0 06/25/20 07:20 98.1 Laboratory Data 24H LABS Laboratory Tests 2 06/25/20 07:24: Bedside Glucose (Misc Panel) 148H 06/25/20 07:33: Nucleated Red Blood Cells % (auto) 0.0 CBC/BMP Laboratory Tests 06/25/20 07:33 PADILLA BREAUX MD June 25, 2020 10:42
[2020-06-25 12:00] VITALS: BP 158/80
--- NOTE | 2020-06-30 09:46 | IRPON ---
IR Postoperative Note Date Of Procedure: June 30, 2020 Time Of Procedure: 09:41 IR Postoperative Note IR Endovenous laser treatment for left leg varicose vein. IR Ultrasound of the left leg. IR Tumescent anesthesia under ultrasound guidance. IR Moderate sedation. Clinical information: Nonhealing left lower extremity venous ulcers. Lesser saphenous vein reflux. Physician: Dr. Berumen. Procedure: The patient was advised of the benefits, risks and alternatives of the procedure and informed consent was obtained. The time-out was performed with verification of the patient's name, MRN, site of procedure and type of procedure to be performed. The patient was positioned in the supine position on the table. The site was prepped and draped in the usual sterile fashion. Moderate sedation was performed by the physician including the presence of an independent trained RN who assisted in monitoring the patient's level of consciousness and physiologic status. Following the administration of fentanyl and Versed , the physician spent 90 minutes of continuous face to face time with the patient. Ultrasound of the left lower extremity demonstrates dilated left lesser saphenous vein with greater than 0.5 seconds reflux. The lesser saphenous vein does not connect with the popliteal vein but continues into the proximal thigh as the vein of Giacomini. The access site was identified with ultrasound and anesthetized with lidocaine. The left lesser saphenous vein was accessed under ultrasound guidance at the ankle, using a micro introducer needle. An 018 cope wire was advanced into the vein. Incision at the access site was made using a scalpel. The needle was removed and an access catheter was advanced over the wire under ultrasound guidance to the distal thigh. The wire was removed and the laser fiber was advanced through the catheter under ultrasound guidance and positioned with the tip located in the distal thigh. Tumescent anesthesia was then injected under ultrasound guidance along the entire length of the vein to be treated. Repeat ultrasound was used to confirm positioning of the tip of the laser and no communication with or proximity to the deep venous system. The patient was positioned in Trendelenburg. The laser was then activated and under ultrasound guidance used to laser the Lesser saphenous vein back to the access point. Simultaneous manual compression was applied to the treated vein. Treatment: Wattage: 7. Time: 75 seconds. Pullback rate 1 cm every 7 seconds. Total Energy deposited 575 joules. Treatment 50 joules per centimeter of vein. The fiber, catheter and sheath were removed, pressure held and hemostasis achieved. A sterile dressing was applied to the site. Compression dressing was then applied to the leg, from ankle to groin. The patient tolerated the procedure well and was returned to the PRU in stable condition. EBL: < 5 ml. Complications: None. Impression: 1. Ultrasound demonstrates dilated lesser saphenous vein with greater than 0.5 seconds reflux. 2. Successful left lesser saphenous vein ablation with laser. 3. Compression dressing applied from ankle to groin. Patient to return in 1 week for follow up ultrasound at which time the compression dressing will be switched to stockings. Thank you this referral. PAIDLLA France MD June 30, 2020 09:46
== END ==
LOC: M IRPRO 06:59
PROVIDERS: ATTEND Radiology Diagnostic Radiology
DX: I87.312 Chronic venous hypertension (idiopathic) with ulcer of left lower extremity (principal); Z79.4 Long term (current) use of insulin; Z79.82 Long term (current) use of aspirin; Z79.899 Other long term (current) drug therapy
CPT/HCPCS: 36478; 76940; 85027; 99152; 99153; J2250; J3010

== ENCOUNTER → 2020-07-02 | Outpatient (CLI) | payer BC ==
[~2020-07-02] MED LIST changes: -LIDOCAINE 1% MDV 20ML VIAL As Ordered ONE; -LIDOCAINE 2% MDV 20ML VIAL As Ordered ONE; -MIDAZOLAM INJ 2MG/2ML VIAL (J2250 PER 1MG) As Ordered ONE; -PROMETHAZINE INJ 25 MG/ML VIAL (J2550) As Ordered ONE; -diphenhydrAMINE 50MG/ML VIAL (J1200) As Ordered ONE; -fentaNYL 100 MCG/2 ML INJECTION (J3010) As Ordered ONE
--- NOTE | 2020-07-02 10:19 | REP ---
INDICATION: POST EVLT, R/O DVT LT LEG COMPARISON: None. TECHNIQUE: Palencia scale and color Doppler evaluation using linear high frequency transducer. FINDINGS: Ultrasound examination of the left lower extremity deep venous structures from the common femoral vein to the popliteal vein demonstrates normal compressibility flow and wave patterns in response to respiration and augmentation. There is no evidence for deep venous thrombosis. Patient is status post EVLT with appropriate thrombus of the saphenous vein. IMPRESSION: No evidence for deep venous thrombosis. <Electronically signed by Nakul Soto > 07/02/20 1010
== END ==
LOC: M RAD 09:43
PROVIDERS: ATTEND Radiology Diagnostic Radiology
DX: Z98.890 Other specified postprocedural states (principal); I87.312 Chronic venous hypertension (idiopathic) with ulcer of left lower extremity

== ENCOUNTER → 2020-07-15 | Outpatient (POV) | payer BC ==
[~2020-07-15] VITALS: Ht 190.5 cm; Wt 125.0 kg
[2020-07-15 10:51] VITALS: BP 218/88
--- NOTE | 2020-07-16 13:08 | IRPN ---
[facility] IR Progress Note IR Progress Note DATE: Jul 15, 2020 FOLLOW-UP: Patient is now status post left lower extremity, lesser saphenous vein EVLT for left lower extremity edema and nonhealing venous ulcer. Patient has noted that compared to preprocedure, his left leg swelling has gone down considerably. He has been discharged from wound care. ON EXAMINATION: Left lower extremity normal in color and temperature. There is hemosiderin deposition associated with long-term venous hypertension. No open wounds. IMPRESSION: Doing well status post left lower extremity lesser saphenous vein ablation for venous hypertension. Patient has noted decrease in his left lower extremity swelling. He is encouraged to wear compression stockings long-term. We will order an ultrasound of his right lower extremity to evaluate for saphenous reflux and venous hypertension, as he has skin stigmata of venous hypertension and also suffers with right lower extremity swelling. Thank you for this referral. Cc Jennifer Vides Allergies Coded Allergies: No Known Allergies (Verified , 12/29/18) VS,Fishbone, I+O VS, Fishbone, I+O Vital Signs Date Time Temp Pulse Resp B/P (MAP) Pulse Ox O2 Delivery O2 Flow Rate FiO2 07/15/20 10:51 98.0 64 20 218/88 (131) 96 Room Air PADILLA BREAUX MD Jul 16, 2020 13:08
== END ==
LOC: M TMIRPOV 10:31 → M IRPOV 10:31
PROVIDERS: ATTEND Radiology Diagnostic Radiology
DX: Z48.816 Encounter for surgical aftercare following surgery on the genitourinary system (principal); I87.392 Chronic venous hypertension (idiopathic) with other complications of left lower extremity

== ENCOUNTER → 2020-07-23 | Outpatient (CLI) | payer BC ==
--- NOTE | 2020-07-24 08:03 | REP ---
INDICATION: RT LEG VARICOSE VEINS COMPARISON: None. TECHNIQUE: Palencia scale and color Doppler evaluation using linear high frequency transducer including reflux evaluation. FINDINGS: Ultrasound examination of the right lower extremity deep venous structures from the common femoral vein through the calf/ankle to include the peroneal, and tibial veins demonstrates normal compressibility flow and wave patterns in response to respiration and augmentation. There is no evidence for deep venous thrombosis. Contralateral CFV is patent and normal. Reflux evaluation demonstrates somewhat pulsatile flow without evidence for significant reflux through the deep or superficial system. IMPRESSION: No evidence for deep venous thrombosis. No evidence for reflux. <Electronically signed by Nakul Soto > 07/24/20 1018
== END ==
LOC: M RAD 11:52
PROVIDERS: ATTEND Radiology Diagnostic Radiology
DX: I83.90 Asymptomatic varicose veins of unspecified lower extremity (principal)

== ENCOUNTER → 2020-07-29 | Outpatient (REF) | payer BC ==
[~2020-07-29] MED LIST changes: +OMEP40CA4 PO; -OMEP40CA97 PO
== END ==
LOC: M LAB REF 16:32
PROVIDERS: ATTEND Physician Assistant Medical
DX: I10 Essential (primary) hypertension (principal)

== ENCOUNTER → 2020-09-11 | Outpatient (CLI) | payer BC ==
[~2020-09-11] MED LIST changes: +AMLO1TAB24 PO; +CIME300T91 PO; +FURO20TA2
== END ==
LOC: M LABSMTC 09:58
PROVIDERS: ATTEND Anesthesiology
DX: Z01.812 Encounter for preprocedural laboratory examination (principal); Z20.822 Contact with and (suspected) exposure to COVID-19

== ENCOUNTER 2020-09-16 06:34 | Day surgery (SDC) | payer BC ==
[~2020-09-16] VITALS: Ht 188 cm; Wt 121.1 kg
[~2020-09-16 06:34] MED LIST changes: +NS 1,000 ML IV ONE
[2020-09-16] MEDS ORDERED: LIDOCAINE 2% 100MG/5ML SDV (FOR ANES.) As Ordered ONE (06:41)
[2020-09-16] MEDS ORDERED: propofoL 200 MG/20 ML VIAL As Ordered ONE ×5 (06:41→08:19)
[2020-09-16] MEDS ORDERED: hydrALAZINE 20MG/ML 1ML VIAL (J0360 PER 20MG) As Ordered ONE (07:39)
--- NOTE | 2020-09-16 08:46 | ROOR ---
Patient Name: Slick Reeves Procedure Date: 09/16/2020 7:31 AM Date of : 1960 Age: 60 Room: [facility] Gender: Male Note Status: Finalized Procedure: Colonoscopy Indications: High risk colon cancer surveillance: Personal history of colonic polyps Providers: Boris Madison MD Referring MD: NICOLASA BARKER JR, MD Requesting Provider: Medicines: Monitored Anesthesia Care Complications: No immediate complications. Procedure: Pre-Anesthesia Assessment: - Prior to the procedure, a History and Physical was performed, and patient medications and allergies were reviewed. The patient is competent. The risks and benefits of the procedure and the sedation options and risks were discussed with the patient. All questions were answered and informed consent was obtained. Patient identification and proposed procedure were verified by the physician, the nurse and the anesthesiologist in the procedure room. Mental Status Examination: alert and oriented. Airway Examination: normal oropharyngeal airway and neck mobility. Respiratory Examination: clear to auscultation. CV Examination: normal. Prophylactic Antibiotics: The patient does not require prophylactic antibiotics. Prior Anticoagulants: The patient has taken no previous anticoagulant or antiplatelet agents. ASA Grade Assessment: III - A patient with severe systemic disease. After reviewing the risks and benefits, the patient was deemed in satisfactory condition to undergo the procedure. The anesthesia plan was to use monitored anesthesia care (MAC). Immediately prior to administration of medications, the patient was re-assessed for adequacy to receive sedatives. The heart rate, respiratory rate, oxygen saturations, blood pressure, adequacy of pulmonary ventilation, and response to care were monitored throughout the procedure. The physical status of the patient was re-assessed after the procedure. The Colonoscope was introduced through the anus and advanced to the cecum, identified by appendiceal orifice and ileocecal valve. The colonoscopy was technically difficult and complex due to a redundant colon. Successful completion of the procedure was aided by using manual pressure and straightening and shortening the scope to obtain bowel loop reduction. The patient tolerated the procedure well. The quality of the bowel preparation was good. The ileocecal valve, appendiceal orifice, and rectum were photographed. Scope insertion time was 6 minutes. Scope withdrawal time was 10 minutes. The total duration of the procedure was 18 minutes. Findings: The perianal and digital rectal examinations were normal. Four sessile polyps were found in the descending colon, ascending colon and cecum. The polyps were 3 to 6 mm in size. These polyps were removed with a cold snare. Resection and retrieval were complete. The polyp was removed with a cold biopsy forceps. Resection and retrieval were complete. Verification of patient identification for the specimen was done by the physician and nurse using the patient's name, date and medical record number. Estimated blood loss was minimal. Non-bleeding external and internal hemorrhoids were found during retroflexion. The hemorrhoids were medium-sized. Impression: - Four 3 to 6 mm polyps in the descending colon, in the ascending colon and in the cecum, removed with a cold snare and removed with a cold biopsy forceps. Resected and retrieved. - Non-bleeding external and internal hemorrhoids. Recommendation: - Patient has a contact number available for emergencies. The signs and symptoms of potential delayed complications were discussed with the patient. Return to normal activities tomorrow. Written discharge instructions were provided to the patient. - High fiber diet. - Continue present medications. - Await pathology results. - Repeat colonoscopy in 3 - 5 years for surveillance based on pathology results. - Telephone GI clinic for pathology results in 2 weeks. - Return to primary care physician. Procedure Code(s): --- Professional --- 35236, Colonoscopy, flexible; with removal of tumor(s), polyp(s), or other lesion(s) by snare technique Diagnosis Code(s): --- Professional --- Z86.010, Personal history of colonic polyps K63.5, Polyp of colon K64.8, Other hemorrhoids CPT copyright 2019 [employer]. All rights reserved. The codes documented in this report are preliminary and upon watch supervisor review may be revised to meet current compliance requirements. Boris Madison MD Boris Madison MD 09/16/2020 8:45:54 AM Electronically signed by Boris Madison MD Number of Addenda: 0 Note Initiated On: 09/16/2020 7:31 AM Estimated Blood Loss: Estimated blood loss was minimal.
[2020-09-16 08:50] VITALS: BP 165/73
== END 2020-09-16 09:27 | disposition home or self-care (01) ==
LOC: M OPP 06:34
PROVIDERS: ATTEND Internal Medicine Gastroenterology
DX: Z12.11 Encounter for screening for malignant neoplasm of colon (principal); Z86.010 Personal history of colon polyps; K63.5 Polyp of colon; K64.8 Other hemorrhoids; Q43.8 Other specified congenital malformations of intestine; M31.30 Wegener's granulomatosis without renal involvement; K21.9 Gastro-esophageal reflux disease without esophagitis; Z79.82 Long term (current) use of aspirin; Z79.899 Other long term (current) drug therapy
CPT/HCPCS: 45385; 88305; J0360

== ENCOUNTER → 2021-03-10 | Outpatient (POV) | payer BC ==
[~2021-03-10] VITALS: Ht 190.5 cm; Wt 125.0 kg
[~2021-03-10] MED LIST changes: -CEFD1CAP8 PO; +CEFD300C41 PO; -CITA40TA4 PO; +CITA40TA7 PO; -NS 1,000 ML IV ONE; +OMEP-173 PO; -OMEP-218 PO
[2021-03-10 11:30] VITALS: BP 168/80
== END ==
LOC: M IRPOV 11:23
PROVIDERS: ATTEND Radiology Diagnostic Radiology
DX: L97.219 Non-pressure chronic ulcer of right calf with unspecified severity (principal); L97.819 Non-pressure chronic ulcer of other part of right lower leg with unspecified severity; I87.2 Venous insufficiency (chronic) (peripheral); E11.59 Type 2 diabetes mellitus with other circulatory complications; Z79.82 Long term (current) use of aspirin; Z79.899 Other long term (current) drug therapy

== ENCOUNTER → 2021-04-08 | Outpatient (CLI) | payer BC ==
[~2021-04-08] MED LIST changes: +GABA-283 PO; +NS 1,000 ML IV SCH
[2021-04-08 07:10] VITALS: BP 215/95
== END ==
LOC: M IRPRO 07:03
PROVIDERS: ATTEND Radiology Diagnostic Radiology
DX: I87.2 Venous insufficiency (chronic) (peripheral) (principal); I83.891 Varicose veins of right lower extremity with other complications

== ENCOUNTER 2021-07-31 11:46 | Inpatient (IN) | payer BC ==
[~2021-07-31] VITALS: Ht 188 cm; Wt 120.5 kg
[~2021-07-31 11:46] MED LIST changes: +CIME200T4 PO; +FEXO-112 PO; -FEXO-4 PO; -GNP200TA4 PO; -NS 1,000 ML IV SCH
[2021-07-31 13:31] LABS: BASO % 0.3 % (0.0-1.0); EOS # 0.1 10^3/uL (0.0-0.5); EOS % 2.3 % (0.0-3.0); HEMATOCRIT 42.4 % (42.0-52.0); HEMOGLOBIN 14.1 g/dl (13.5-17.5); LYMPH # 1.1 10^3/uL (1.5-5.0); MEAN CORPUSCULAR HEMOGLOBIN 31.8 pg (27.0-33.0); MEAN CORPUSCULAR HGB CONC 33.3 g/dl (32.0-36.5); MEAN CORPUSCULAR VOLUME 95.7 fl (80.0-96.0); MONO # 0.5 10^3/uL (0.0-0.8); MONO % 8.9 % (2.0-8.0); NEUTROPHILS # 4.2 10^3/uL (1.5-8.5); NEUTROPHILS % 70.2 % (36.0-66.0); PLATELET COUNT, AUTOMATED 200 10^3/uL (150-450); RED BLOOD COUNT 4.43 10^6/uL (4.30-6.10)
[2021-07-31 14:07] LABS: ERYTHROCYTE SEDIMENTATION RATE 39 mm/hr (0-20)
[2021-07-31] MEDS ORDERED: VANCOMYCIN HCL 2,000 MG in D5W 500 ML IV ONE (14:25)
[2021-07-31] MEDS ORDERED: MOM 30ML SUSPENSION UDC PO PRN (15:00)
[2021-07-31] MEDS ORDERED: DEXTROSE 50% 50 ML SYRINGE IV PRN (15:00)
[2021-07-31] MEDS ORDERED: ACETAMINOPHEN TAB 650MG DOSE (2X325MG) PO PRN (15:00)
[2021-07-31] MEDS ORDERED: MAALOX 30 ML SUSP *UDC PO PRN (15:00)
[2021-07-31] MEDS ORDERED: GLUCOSE 4GM CHEW TABLET PO PRN (15:00)
[2021-07-31] MEDS ORDERED: VANCOMYCIN HCL 1,000 MG, VIAL MATE ADAPTER 1 EACH in NS 250 ML IV ONE ×2 (15:00→16:00)
[2021-07-31] MEDS ORDERED: GLUCAGON INJ 1MG VIAL SC PRN (15:00)
[2021-07-31 16:22] LABS: RSV AMPLIFICATION NEGATIVE (NEGATIVE)
[2021-07-31] MEDS ORDERED: GABA-282 PO (16:29)
[2021-07-31] MEDS ORDERED: CETI-24 PO (16:30)
[2021-07-31] MEDS ORDERED: HOME MED LIST COMPLETE! XX SCH (16:35)
[2021-07-31] MEDS ORDERED: INSULIN LISPRO (NovoLOG) PER UNIT SC SCH (18:00)
[2021-07-31] MEDS: PIPERACILLIN/TAZOBACTAM SOD 3.375 GM in D5W MINI-BAG PLUS 50 ML IV SCH (18:33)
[2021-07-31] MEDS: INSULIN LISPRO (NovoLOG) PER UNIT SC SCH ×2 (19:57→21:00)
[2021-07-31] MEDS: VANCOMYCIN HCL 1,000 MG, VIAL MATE ADAPTER 1 EACH in NS 250 ML IV SCH (22:34)
[2021-07-31 22:47] VITALS: BP 180/90
[2021-08-01] VITALS (10 sets, daily range): BP systolic 138–175; BP diastolic 78–96
[2021-08-01] MEDS ORDERED: **hydrALAZINE** 50 MG TAB PO ONE (00:05)
[2021-08-01] MEDS: MORPHINE 4 MG/ML 1ML VIAL/SYRINGE IV PRN ×2 (02:36→17:11)
[2021-08-01] MEDS: PIPERACILLIN/TAZOBACTAM SOD 3.375 GM in D5W MINI-BAG PLUS 50 ML IV SCH ×6 (04:54→22:52)
[2021-08-01] MEDS ORDERED: BUPIVACAINE HCL 0.5% 30ML VIAL As Ordered ONE (06:14)
[2021-08-01] MEDS ORDERED: LIDOCAINE 2% MDV 20ML VIAL As Ordered ONE (06:14)
[2021-08-01 06:23] LABS: HEMOGLOBIN 13.4 g/dl (13.5-17.5); MEAN CORPUSCULAR HEMOGLOBIN 33.3 pg (27.0-33.0); MEAN CORPUSCULAR HGB CONC 34.4 g/dl (32.0-36.5); PLATELET COUNT, AUTOMATED 183 10^3/uL (150-450); RED BLOOD COUNT 4.02 10^6/uL (4.30-6.10); WHITE BLOOD COUNT 7.3 10^3/uL (4.0-10.0)
[2021-08-01] MEDS: MORPHINE 2 MG/ML 1ML VIAL IV PRN ×2 (06:32→21:17)
[2021-08-01 06:46] LABS: BLOOD UREA NITROGEN 17 MG/DL (7-18); CALCIUM LEVEL 9.4 MG/DL (8.8-10.2); CARBON DIOXIDE LEVEL 29 MEQ/L (21-32); CHLORIDE LEVEL 104 MEQ/L (98-107); CREATININE FOR GFR 1.05 MG/DL (0.70-1.30); GLOMERULAR FILTRATION RATE > 60.0 (>49); GLUCOSE, FASTING 188 MG/DL (70-100); MAGNESIUM LEVEL 2.3 MG/DL (1.8-2.4); POTASSIUM SERUM 4.2 MEQ/L (3.5-5.1); SODIUM LEVEL 139 MEQ/L (136-145)
[2021-08-01] MEDS: VANCOMYCIN HCL 1,000 MG, VIAL MATE ADAPTER 1 EACH in NS 250 ML IV SCH ×3 (06:57→21:11)
[2021-08-01] MEDS: INSULIN LISPRO (NovoLOG) PER UNIT SC SCH ×4 (07:30→21:00)
[2021-08-01] MEDS ORDERED: GENTAMICIN SULF 80MG/2ML VIAL As Ordered ONE ×2 (09:39→09:47)
[2021-08-01] MEDS ORDERED: MIDAZOLAM INJ 2MG/2ML VIAL (J2250 PER 1MG) As Ordered ONE (10:05)
[2021-08-01] MEDS ORDERED: GLYCOPYRROLATE INJ 0.2 MG/ML 2 ML VIAL As Ordered ONE (10:05)
[2021-08-01] MEDS ORDERED: propofoL 200 MG/20 ML VIAL As Ordered ONE (10:05)
[2021-08-01] MEDS ORDERED: fentaNYL 100 MCG/2 ML INJECTION As Ordered ONE (10:05)
[2021-08-01] MEDS ORDERED: INSULIN LISPRO (NovoLOG) PER UNIT SC PRN (10:55)
[2021-08-01] MEDS ORDERED: LR 1,000 ML IV SCH (10:55)
[2021-08-01] MEDS ORDERED: ONDANSETRON 4MG/2ML VIAL IV PRN (10:55)
[2021-08-01] MEDS ORDERED: fentaNYL 100 MCG/2 ML INJECTION IV PRN (10:55)
[2021-08-01] MEDS ORDERED: oxyCODONE 5MG TAB PO PRN (10:55)
[2021-08-01] MEDS ORDERED: amLODIPine 5 MG TAB PO ONE (11:05)
[2021-08-01] MEDS ORDERED: TAMSULOSIN 0.4 MG CAP PO ONE (20:00)
[2021-08-02 02:35] VITALS: BP 158/82
[2021-08-02] MEDS: PIPERACILLIN/TAZOBACTAM SOD 3.375 GM in D5W MINI-BAG PLUS 50 ML IV SCH ×4 (05:02→23:25)
[2021-08-02 05:45] VITALS: BP 160/82
[2021-08-02 05:46] LABS: HEMOGLOBIN 13.5 g/dl (13.5-17.5); MEAN CORPUSCULAR HEMOGLOBIN 32.4 pg (27.0-33.0); MEAN CORPUSCULAR HGB CONC 33.8 g/dl (32.0-36.5); MEAN CORPUSCULAR VOLUME 95.9 fl (80.0-96.0); PLATELET COUNT, AUTOMATED 194 10^3/uL (150-450); RED BLOOD COUNT 4.17 10^6/uL (4.30-6.10); WHITE BLOOD COUNT 7.3 10^3/uL (4.0-10.0)
[2021-08-02] MEDS: VANCOMYCIN HCL 1,000 MG, VIAL MATE ADAPTER 1 EACH in NS 250 ML IV SCH ×3 (06:11→21:38)
[2021-08-02 06:14] LABS: BLOOD UREA NITROGEN 15 MG/DL (7-18); CALCIUM LEVEL 8.5 MG/DL (8.8-10.2); CARBON DIOXIDE LEVEL 29 MEQ/L (21-32); CHLORIDE LEVEL 102 MEQ/L (98-107); CREATININE FOR GFR 1.09 MG/DL (0.70-1.30); GLOMERULAR FILTRATION RATE > 60.0 (>49); GLUCOSE, FASTING 201 MG/DL (70-100); MAGNESIUM LEVEL 2.1 MG/DL (1.8-2.4); POTASSIUM SERUM 4.3 MEQ/L (3.5-5.1); SODIUM LEVEL 136 MEQ/L (136-145)
[2021-08-02] MEDS: bisoproloL fumarate 5 MG TAB PO SCH (09:00)
[2021-08-02] MEDS: INSULIN LISPRO (NovoLOG) PER UNIT SC SCH ×4 (09:41→20:48)
[2021-08-02 09:45] VITALS: BP 169/69
[2021-08-02] MEDS: FOLIC ACID 1 MG TAB PO SCH (11:40)
[2021-08-02] MEDS: CETIRIZINE (ZyrTEC) 10 MG TAB PO SCH (11:40)
[2021-08-02] MEDS: ASPIRIN 81MG ENTERIC TABLET PO SCH (11:40)
[2021-08-02] MEDS: MULTIVITAMINS/MINERALS THERAP 1 TAB PO SCH (11:40)
[2021-08-02] MEDS: ENOXAPARIN 40MG/0.4ML SYRINGE (J1650 PER 10MG) SC SCH (11:41)
[2021-08-02] MEDS: amLODIPine 5 MG TAB PO SCH (11:41)
[2021-08-02] MEDS: PANTOPRAZOLE 40MG TAB (PROTONIX) PO SCH (11:43)
[2021-08-02 13:58] VITALS: BP 170/72
[2021-08-02] MEDS: PERCOCET 5MG/325MG TAB PO PRN (16:38)
[2021-08-02] MEDS: GABAPENTIN 300 MG CAP PO SCH ×2 (16:40→21:38)
[2021-08-02 20:20] VITALS: BP 164/72
[2021-08-02] MEDS: TAMSULOSIN 0.4 MG CAP PO SCH (21:38)
[2021-08-03] MEDS: PIPERACILLIN/TAZOBACTAM SOD 3.375 GM in D5W MINI-BAG PLUS 50 ML IV SCH (04:34)
[2021-08-03 05:21] VITALS: BP 158/78
[2021-08-03] MEDS: VANCOMYCIN HCL 1,000 MG, VIAL MATE ADAPTER 1 EACH in NS 250 ML IV SCH (05:57)
[2021-08-03 06:14] LABS: HEMATOCRIT 39.8 % (42.0-52.0); HEMOGLOBIN 13.1 g/dl (13.5-17.5); MEAN CORPUSCULAR HEMOGLOBIN 31.9 pg (27.0-33.0); MEAN CORPUSCULAR HGB CONC 32.9 g/dl (32.0-36.5); MEAN CORPUSCULAR VOLUME 96.8 fl (80.0-96.0); PLATELET COUNT, AUTOMATED 177 10^3/uL (150-450); RED BLOOD COUNT 4.11 10^6/uL (4.30-6.10); WHITE BLOOD COUNT 5.1 10^3/uL (4.0-10.0)
[2021-08-03 06:38] LABS: C REACTIVE PROTEIN QUANTITATIV 1.14 MG/DL (0.00-0.30); CALCIUM LEVEL 8.4 MG/DL (8.8-10.2); CREATININE FOR GFR 1.36 MG/DL (0.70-1.30); GLOMERULAR FILTRATION RATE 56.5 (>49); MAGNESIUM LEVEL 2.3 MG/DL (1.8-2.4); POTASSIUM SERUM 4.3 MEQ/L (3.5-5.1); VANCOMYCIN LEVEL TROUGH 17.8 UG/ML (10.0-20.0)
[2021-08-03] MEDS: bisoproloL fumarate 5 MG TAB PO SCH (09:00)
[2021-08-03] MEDS: MULTIVITAMINS/MINERALS THERAP 1 TAB PO SCH (09:10)
[2021-08-03] MEDS: PANTOPRAZOLE 40MG TAB (PROTONIX) PO SCH (09:10)
[2021-08-03] MEDS: ENOXAPARIN 40MG/0.4ML SYRINGE (J1650 PER 10MG) SC SCH (09:10)
[2021-08-03] MEDS: ASPIRIN 81MG ENTERIC TABLET PO SCH (09:11)
[2021-08-03] MEDS: CETIRIZINE (ZyrTEC) 10 MG TAB PO SCH (09:11)
[2021-08-03] MEDS: FOLIC ACID 1 MG TAB PO SCH (09:11)
[2021-08-03] MEDS: GABAPENTIN 300 MG CAP PO SCH ×3 (09:11→20:23)
[2021-08-03] MEDS: amLODIPine 5 MG TAB PO SCH ×2 (09:12→22:00)
[2021-08-03] MEDS: INSULIN LISPRO (NovoLOG) PER UNIT SC SCH ×4 (09:13→20:24)
[2021-08-03] MEDS: AUGMENTIN 875 MG TAB PO SCH ×2 (11:29→20:22)
[2021-08-03] MEDS: PERCOCET 5MG/325MG TAB PO PRN ×2 (11:36→20:25)
[2021-08-03 14:00] VITALS: BP 180/74
[2021-08-03 14:16] VITALS: BP 184/84
[2021-08-03] MEDS ORDERED: CHLORTHALIDONE 12.5MG PER 1/2 TABLET PO ONE (18:00)
[2021-08-03] MEDS ORDERED: VANCOMYCIN HCL 1,000 MG, VIAL MATE ADAPTER 1 EACH in NS 250 ML IV SCH (18:00)
[2021-08-03 20:06] VITALS: BP 184/74
[2021-08-03] MEDS: TAMSULOSIN 0.4 MG CAP PO SCH (20:23)
[2021-08-03 21:35] VITALS: BP 186/78
[2021-08-03] MEDS ORDERED: **hydrALAZINE** 50 MG TAB PO ONE (22:00)
[2021-08-03 23:27] VITALS: BP 172/70
[2021-08-04 02:11] VITALS: BP 148/72
[2021-08-04 06:18] LABS: HEMATOCRIT 39.5 % (42.0-52.0); HEMOGLOBIN 13.1 g/dl (13.5-17.5); MEAN CORPUSCULAR HEMOGLOBIN 31.7 pg (27.0-33.0); MEAN CORPUSCULAR HGB CONC 33.2 g/dl (32.0-36.5); MEAN CORPUSCULAR VOLUME 95.6 fl (80.0-96.0); PLATELET COUNT, AUTOMATED 180 10^3/uL (150-450); RED BLOOD COUNT 4.13 10^6/uL (4.30-6.10); WHITE BLOOD COUNT 4.7 10^3/uL (4.0-10.0)
[2021-08-04 06:36] LABS: BLOOD UREA NITROGEN 13 MG/DL (7-18); CALCIUM LEVEL 9.1 MG/DL (8.8-10.2); CARBON DIOXIDE LEVEL 28 MEQ/L (21-32); CHLORIDE LEVEL 103 MEQ/L (98-107); CREATININE FOR GFR 1.22 MG/DL (0.70-1.30); GLOMERULAR FILTRATION RATE > 60.0 (>49); GLUCOSE, FASTING 244 MG/DL (70-100); MAGNESIUM LEVEL 2.2 MG/DL (1.8-2.4); POTASSIUM SERUM 3.9 MEQ/L (3.5-5.1); SODIUM LEVEL 138 MEQ/L (136-145)
[2021-08-04 06:51] VITALS: BP 177/81
[2021-08-04 06:52] VITALS: BP 174/76
[2021-08-04] MEDS: PERCOCET 5MG/325MG TAB PO PRN (07:06)
[2021-08-04] MEDS: ENOXAPARIN 40MG/0.4ML SYRINGE (J1650 PER 10MG) SC SCH (08:42)
[2021-08-04] MEDS: MULTIVITAMINS/MINERALS THERAP 1 TAB PO SCH (08:43)
[2021-08-04] MEDS: GABAPENTIN 300 MG CAP PO SCH (08:43)
[2021-08-04] MEDS: AUGMENTIN 875 MG TAB PO SCH (08:44)
[2021-08-04] MEDS: CETIRIZINE (ZyrTEC) 10 MG TAB PO SCH (08:46)
[2021-08-04] MEDS: ASPIRIN 81MG ENTERIC TABLET PO SCH (08:46)
[2021-08-04] MEDS: PANTOPRAZOLE 40MG TAB (PROTONIX) PO SCH (08:47)
[2021-08-04] MEDS: FOLIC ACID 1 MG TAB PO SCH (08:47)
[2021-08-04] MEDS: amLODIPine 5 MG TAB PO SCH (08:47)
[2021-08-04 08:48] VITALS: BP 152/69
[2021-08-04] MEDS: bisoproloL fumarate 5 MG TAB PO SCH (08:48)
[2021-08-04] MEDS: INSULIN LISPRO (NovoLOG) PER UNIT SC SCH ×2 (08:48→12:34)
[2021-08-04] MEDS ORDERED: AMLO1TAB24 PO (09:38)
[2021-08-04] MEDS ORDERED: LISI10TA22 PO (09:38)
[2021-08-04] MEDS ORDERED: PERCOCET PO (09:38)
[2021-08-04] MEDS ORDERED: FLOM0.4C39 PO (09:38)
[2021-08-04] MEDS ORDERED: AMOX875T2 PO (09:38)
== END 2021-08-04 16:06 | disposition home or self-care (01) | DRG 314 ==
LOC: M ED 11:46 → M ED INP 15:00 → ENRESERV 21:14 → M MSPAV 22:49
PROVIDERS: ADMIT Family Medicine; ATTEND Internal Medicine
PROC: 0Y6U0Z2 Detachment at Left 3rd Toe, Mid, Open Approach (ICD-10-PCS; principal; 2021-08-01 10:00)
DX: E11.69 Type 2 diabetes mellitus with other specified complication (principal); M86.9 Osteomyelitis, unspecified; L97.529 Non-pressure chronic ulcer of other part of left foot with unspecified severity; E11.42 Type 2 diabetes mellitus with diabetic polyneuropathy; I10 Essential (primary) hypertension; Z89.412 Acquired absence of left great toe; J38.3 Other diseases of vocal cords; Z79.82 Long term (current) use of aspirin; Z79.4 Long term (current) use of insulin; Z79.899 Other long term (current) drug therapy; I87.8 Other specified disorders of veins; R00.1 Bradycardia, unspecified; E11.621 Type 2 diabetes mellitus with foot ulcer; E78.5 Hyperlipidemia, unspecified

== ENCOUNTER → 2022-04-15 | Outpatient (CLI) | payer BC ==
[~2022-04-15] MED LIST changes: +CETI-24 PO; +FLOM0.4C39 PO; +INSU100I6 SC; -LEVE1INJ5 SC; +LISI10TA22 PO
== END ==
LOC: M PLARAD 12:53
PROVIDERS: ATTEND Otolaryngology
DX: C32.9 Malignant neoplasm of larynx, unspecified (principal); J37.0 Chronic laryngitis

== ENCOUNTER → 2022-05-03 | Outpatient (REF) | payer BC | LOC: M LAB REF 16:08 | PROVIDERS: ATTEND Podiatrist | DX: L03.031 Cellulitis of right toe (principal) ==

== ENCOUNTER → 2022-06-21 | Outpatient (CLI) | payer BC ==
[~2022-06-21] MED LIST changes: +ENAL1TAB52 PO; -ENAL20TA11 PO
== END ==
LOC: M SLEEP 20:00
PROVIDERS: ATTEND Nurse Practitioner Adult Health
DX: G47.33 Obstructive sleep apnea (adult) (pediatric) (principal)

== ENCOUNTER → 2022-07-09 | Outpatient (CLI) | payer BC ==
[2022-07-09 15:49] LABS: ALBUMIN 3.6 G/DL (3.2-5.2); ALKALINE PHOSPHATASE 97 U/L (46-116); ALT/SGPT 39 U/L (7.0-40); AST/SGOT 26 U/L (<34); BILIRUBIN,TOTAL 0.9 MG/DL (0.3-1.2); BLOOD UREA NITROGEN 17 MG/DL (9-23); CALCIUM LEVEL 8.6 MG/DL (8.3-10.6); CARBON DIOXIDE LEVEL 28 MMOL/L (20-31); CHLORIDE LEVEL 107 MMOL/L (98-107); CREATININE FOR GFR 1.15 MG/DL (0.70-1.30); GLOMERULAR FILTRATION RATE > 60.0 (>49); GLUCOSE, FASTING 117 MG/DL (74-106); POTASSIUM SERUM 4.5 MMOL/L (3.5-5.1); SODIUM LEVEL 140 MMOL/L (136-145); TOTAL PROTEIN 6.6 G/DL (5.7-8.2)
== END ==
LOC: M LAB 14:51
DX: K21.9 Gastro-esophageal reflux disease without esophagitis (principal)

== ENCOUNTER 2022-08-07 13:53 | Emergency (ER) | payer BC ==
[~2022-08-07] VITALS: Ht 190.5 cm; Wt 122.1 kg
[~2022-08-07 13:53] MED LIST changes: -ROSU20TA5 PO; +ROSU20TA61 PO
[2022-08-07 16:33] LABS: BASO % 0.3 % (0.0-1.0); EOS # 0.1 10^3/uL (0.0-0.5); HEMATOCRIT 32.8 % (42.0-52.0); LYMPH # 0.8 10^3/uL (1.5-5.0); LYMPH % 12.8 % (24.0-44.0); MEAN CORPUSCULAR HEMOGLOBIN 31.5 pg (27.0-33.0); MEAN CORPUSCULAR HGB CONC 33.5 g/dl (32.0-36.5); MONO # 0.6 10^3/uL (0.0-0.8); MONO % 10.1 % (2.0-8.0); NEUTROPHILS # 4.4 10^3/uL (1.5-8.5); NEUTROPHILS % 74.5 % (36.0-66.0); PLATELET COUNT, AUTOMATED 198 10^3/uL (150-450); RED BLOOD COUNT 3.49 10^6/uL (4.30-6.10)
[2022-08-07 16:47] LABS: ERYTHROCYTE SEDIMENTATION RATE 54 mm/hr (0-20)
[2022-08-07] MEDS ORDERED: ceFAZolin SOD 2 GM in IV 1 EA IV ONE (17:30)
[2022-08-07] MEDS ORDERED: DOXY-443 PO (18:54)
[2022-08-07] MEDS ORDERED: OPTI4PAD XX (18:54)
[2022-08-07 19:25] VITALS: BP 167/71; TEMP 98.8; O2SAT 100
[2022-08-10] MEDS ORDERED: LEVO1TAB38 PO (07:28)
== END 2022-08-07 19:27 | disposition home or self-care (01) ==
LOC: M ED 13:53
DX: L03.115 Cellulitis of right lower limb (principal); L97.519 Non-pressure chronic ulcer of other part of right foot with unspecified severity; E11.9 Type 2 diabetes mellitus without complications; I10 Essential (primary) hypertension; E78.5 Hyperlipidemia, unspecified; K21.9 Gastro-esophageal reflux disease without esophagitis; Z79.82 Long term (current) use of aspirin; Z79.4 Long term (current) use of insulin; Z79.899 Other long term (current) drug therapy; Z88.2 Allergy status to sulfonamides
CPT/HCPCS: 73630; 80047; 83605; 85025; 85652; 86140; 87040; 87070; 87077; 87186; 87205; 93971; 96374; 99284; J0690

== ENCOUNTER → 2022-08-11 | Outpatient (REF) | payer BC ==
[~2022-08-11] MED LIST changes: +DOXY-443 PO; +LEVO1TAB38 PO; +OPTI4PAD XX
== END ==
LOC: M LAB REF 16:21
PROVIDERS: ATTEND Podiatrist
DX: L03.031 Cellulitis of right toe (principal)

== ENCOUNTER → 2022-10-05 | Outpatient (CLI) | payer BC ==
[~2022-10-05] MED LIST changes: -GABA-283 PO; +GABA-284 PO
== END ==
LOC: M WUC 15:53
PROVIDERS: ATTEND Podiatrist
DX: M86.171 Other acute osteomyelitis, right ankle and foot (principal)

== ENCOUNTER → 2022-10-18 | Outpatient (CLI) | payer BC ==
[2022-10-18 18:30] LABS: BASO % 0.2 % (0.0-1.0); EOS % 0.1 % (0.0-3.0); HEMATOCRIT 36.3 % (42.0-52.0); HEMOGLOBIN 12.2 g/dl (13.5-17.5); LYMPH # 0.4 10^3/uL (1.5-5.0); LYMPH % 2.1 % (24.0-44.0); MEAN CORPUSCULAR HEMOGLOBIN 31.1 pg (27.0-33.0); MEAN CORPUSCULAR HGB CONC 33.6 g/dl (32.0-36.5); MEAN CORPUSCULAR VOLUME 92.6 fl (80.0-96.0); MONO % 5.1 % (2.0-8.0); NEUTROPHILS # 15.8 10^3/uL (1.5-8.5); NEUTROPHILS % 91.8 % (36.0-66.0); PLATELET COUNT, AUTOMATED 193 10^3/uL (150-450); RED BLOOD COUNT 3.92 10^6/uL (4.30-6.10); WHITE BLOOD COUNT 17.2 10^3/uL (4.0-10.0)
[2022-10-18 18:31] LABS: MONO # 0.9 10^3/uL (0.0-0.8)
[2022-10-18 18:46] LABS: ERYTHROCYTE SEDIMENTATION RATE 36 mm/hr (0-20)
== END ==
LOC: M WUC 14:43
PROVIDERS: ATTEND Podiatrist
DX: Z51.81 Encounter for therapeutic drug level monitoring (principal); Z79.899 Other long term (current) drug therapy

== ENCOUNTER → 2022-11-25 | Outpatient (REF) | payer BC ==
[~2022-11-25] MED LIST changes: -CEFD300C41 PO; +CEFD300C42 PO
[2022-11-26 13:09] LABS: TESTOSTERONE FREE (DIRECT) 14.4 pg/mL (6.6-18.1)
== END ==
LOC: M LABWUC 10:07
PROVIDERS: ATTEND Urology
DX: N52.9 Male erectile dysfunction, unspecified (principal)

== ENCOUNTER 2022-12-23 16:39 | Inpatient (IN) | payer BC ==
[~2022-12-23] VITALS: Ht 183.5 cm; Wt 105.5 kg
[2022-12-23 20:36] LABS: BASO % 0.2 % (0.0-1.0); EOS # 0.2 10^3/uL (0.0-0.5); HEMATOCRIT 34.5 % (42.0-52.0); HEMOGLOBIN 11.6 g/dl (13.5-17.5); LYMPH # 0.8 10^3/uL (1.5-5.0); LYMPH % 7.8 % (24.0-44.0); MEAN CORPUSCULAR HEMOGLOBIN 30.9 pg (27.0-33.0); MEAN CORPUSCULAR HGB CONC 33.6 g/dl (32.0-36.5); MEAN CORPUSCULAR VOLUME 91.8 fl (80.0-96.0); MONO # 0.8 10^3/uL (0.0-0.8); MONO % 8.1 % (2.0-8.0); NEUTROPHILS # 8.4 10^3/uL (1.5-8.5); NEUTROPHILS % 81.7 % (36.0-66.0); PLATELET COUNT, AUTOMATED 229 10^3/uL (150-450); RED BLOOD COUNT 3.76 10^6/uL (4.30-6.10); WHITE BLOOD COUNT 10.2 10^3/uL (4.0-10.0)
[2022-12-23] MEDS: GABAPENTIN 300 MG CAP PO SCH (21:00)
[2022-12-23] MEDS ORDERED: cefTRIAXone SOD 1 GM in D5W MINI-BAG PLUS 50 ML IV ONE (21:05)
[2022-12-23] MEDS ORDERED: VANCOMYCIN HCL 2,000 MG in D5W 500 ML IV ONE (21:05)
[2022-12-23] MEDS ORDERED: VANCOMYCIN HCL 1,000 MG, VIAL MATE ADAPTER 1 EACH in D5W 250 ML IV ONE ×6 (21:10)
[2022-12-23 21:40] LABS: INFLUENZA A AMPLIFICATION NEGATIVE (NEGATIVE); INFLUENZA B AMPLIFICATION NEGATIVE (NEGATIVE)
[2022-12-23] MEDS ORDERED: MED REC IN PROGRESS XX SCH (21:55)
[2022-12-23] MEDS ORDERED: MORPHINE 2 MG/ML 1ML VIAL IV PRN (22:10)
[2022-12-23] MEDS ORDERED: NORCO, ANEXSIA 5/325MG TABLET (HYDROcodone/ACETAMINOPHEN) PO PRN (22:10)
[2022-12-23] MEDS ORDERED: ONDANSETRON 4MG 2ML VIAL IV PRN (22:10)
[2022-12-23] MEDS ORDERED: VANCOMYCIN HCL 1,000 MG, VIAL MATE ADAPTER 1 EACH in NS 250 ML IV SCH (22:10)
[2022-12-23] MEDS ORDERED: VITATAB73 PO (22:40)
[2022-12-23] MEDS ORDERED: ROSU20TA61 PO (22:40)
[2022-12-23] MEDS ORDERED: VITA-199 PO (22:40)
[2022-12-23] MEDS ORDERED: VITA-243 PO (22:40)
[2022-12-23] MEDS ORDERED: TADA20TA PO (22:40)
[2022-12-23] MEDS ORDERED: SEMA1PEN2 SQ (22:40)
[2022-12-23] MEDS ORDERED: SILV50CR TOP (22:40)
[2022-12-23] MEDS ORDERED: BUDE2SUS3 INH (22:40)
[2022-12-23] MEDS ORDERED: OLME20TA2 PO (22:40)
[2022-12-23] MEDS ORDERED: SILD100T PO (22:40)
[2022-12-23] MEDS ORDERED: FLOM0.4C39 PO (22:40)
[2022-12-23] MEDS ORDERED: IBUP200C29 PO (22:40)
[2022-12-23] MEDS ORDERED: HOME MED LIST COMPLETE! XX SCH (22:40)
[2022-12-23 23:36] LABS: ALBUMIN 3.2 G/DL (3.2-5.2); ALKALINE PHOSPHATASE 103 U/L (46-116); ALT/SGPT 19 U/L (7.0-40); AST/SGOT 18 U/L (<34); BILIRUBIN,TOTAL 0.6 MG/DL (0.3-1.2); BLOOD UREA NITROGEN 18 MG/DL (9-23); CALCIUM LEVEL 8.7 MG/DL (8.3-10.6); CARBON DIOXIDE LEVEL 28 MMOL/L (20-31); CHLORIDE LEVEL 105 MMOL/L (98-107); CREATININE FOR GFR 0.85 MG/DL (0.70-1.30); GLOMERULAR FILTRATION RATE > 60.0 (>49); GLUCOSE, FASTING 94 MG/DL (74-106); POTASSIUM SERUM 3.7 MMOL/L (3.5-5.1); SODIUM LEVEL 139 MMOL/L (136-145); TOTAL PROTEIN 6.7 G/DL (5.7-8.2)
[2022-12-24] VITALS (10 sets, daily range): BP systolic 149–189; BP diastolic 65–84; TEMP 97.2–98.2; O2SAT 90–99
[2022-12-24] MEDS ORDERED: DEXTROSE 50% 50ML SYRINGE IV PRN (00:40)
[2022-12-24] MEDS ORDERED: GLUCAGON INJ 1MG VIAL SC PRN (00:40)
[2022-12-24] MEDS ORDERED: GLUCOSE 4GM CHEW TABLET PO PRN (00:40)
[2022-12-24] MEDS: PANTOPRAZOLE 40MG TAB (PROTONIX) PO SCH ×3 (02:23→19:56)
[2022-12-24] MEDS: ROSUVASTATIN 10 MG TAB (CRESTOR) PO SCH ×2 (02:23→19:56)
[2022-12-24] MEDS: TAMSULOSIN 0.4 MG CAP PO SCH ×3 (02:24→19:56)
[2022-12-24] MEDS: LR 1,000 ML IV SCH ×4 (02:25→21:11)
[2022-12-24] MEDS: INSULIN LISPRO (NovoLOG) PER UNIT SC SCH ×3 (05:47→16:36)
[2022-12-24] MEDS: VANCOMYCIN HCL 1,000 MG, VIAL MATE ADAPTER 1 EACH in NS 250 ML IV SCH ×3 (05:47→21:01)
[2022-12-24 08:15] LABS: BASO % 0.3 % (0.0-1.0); EOS # 0.2 10^3/uL (0.0-0.5); EOS % 3.3 % (0.0-3.0); HEMATOCRIT 32.4 % (42.0-52.0); HEMOGLOBIN 10.9 g/dl (13.5-17.5); LYMPH # 0.6 10^3/uL (1.5-5.0); LYMPH % 8.8 % (24.0-44.0); MEAN CORPUSCULAR HEMOGLOBIN 30.6 pg (27.0-33.0); MEAN CORPUSCULAR HGB CONC 33.6 g/dl (32.0-36.5); MONO # 0.7 10^3/uL (0.0-0.8); MONO % 9.9 % (2.0-8.0); NEUTROPHILS # 5.6 10^3/uL (1.5-8.5); NEUTROPHILS % 77.4 % (36.0-66.0); PLATELET COUNT, AUTOMATED 209 10^3/uL (150-450); RED BLOOD COUNT 3.56 10^6/uL (4.30-6.10); WHITE BLOOD COUNT 7.2 10^3/uL (4.0-10.0)
[2022-12-24 08:47] LABS: BLOOD UREA NITROGEN 16 MG/DL (9-23); CALCIUM LEVEL 8.6 MG/DL (8.3-10.6); CARBON DIOXIDE LEVEL 26 MMOL/L (20-31); CHLORIDE LEVEL 105 MMOL/L (98-107); CREATININE FOR GFR 0.78 MG/DL (0.70-1.30); GLOMERULAR FILTRATION RATE > 60.0 (>49); GLUCOSE, FASTING 77 MG/DL (74-106); MAGNESIUM LEVEL 1.9 MG/DL (1.8-2.4); POTASSIUM SERUM 3.9 MMOL/L (3.5-5.1); SODIUM LEVEL 139 MMOL/L (136-145)
[2022-12-24] MEDS: OLMESARTAN MEDOXOMIL 20 MG TAB (BENICAR) PO SCH (09:00)
[2022-12-24] MEDS ORDERED: VANCOMYCIN HCL 750 MG, VIAL MATE ADAPTER 1 EACH in D5W 250 ML IV SCH (09:00)
[2022-12-24] MEDS: GABAPENTIN 300 MG CAP PO SCH ×3 (09:00→19:56)
[2022-12-24] MEDS ORDERED: PANTOPRAZOLE 40MG TAB (PROTONIX) PO SCH (09:00)
[2022-12-24] MEDS ORDERED: VANCOMYCIN HCL 500 MG in D5W MINI-BAG PLUS 100 ML IV SCH (10:00)
[2022-12-24] MEDS ORDERED: NORCO, ANEXSIA 5/325MG TABLET (HYDROcodone/ACETAMINOPHEN) PO PRN (10:10)
[2022-12-24] MEDS ORDERED: LIDOCAINE 2% MDV 20ML VIAL As Ordered ONE (10:46)
[2022-12-24] MEDS ORDERED: LIDOCAINE 2% 100MG/5ML SDV (FOR ANES.) As Ordered ONE (10:52)
[2022-12-24] MEDS ORDERED: propofoL 200 MG/20 ML VIAL As Ordered ONE ×3 (10:52→11:57)
[2022-12-24] MEDS ORDERED: ONDANSETRON 4MG 2ML VIAL As Ordered ONE (10:52)
[2022-12-24] MEDS ORDERED: MIDAZOLAM INJ 2MG/2ML VIAL As Ordered ONE (10:56)
[2022-12-24] MEDS ORDERED: fentaNYL 100 MCG/2 ML INJECTION As Ordered ONE (10:56)
[2022-12-24] MEDS ORDERED: GENTAMICIN SULF 80MG/2ML VIAL As Ordered ONE (11:25)
[2022-12-24] MEDS ORDERED: ACETAMINOPHEN 1000MG 100ML IV BAG As Ordered ONE (11:33)
[2022-12-24] MEDS ORDERED: HEPARIN SOD (PORCINE) 5000UNITS/ML 1ML VIAL/SYRINGE SQ SCH (14:00)
[2022-12-24] MEDS: PERCOCET 5MG/325MG TAB PO PRN (19:58)
[2022-12-24] MEDS: HEPARIN SOD (PORCINE) 5000UNITS/ML 1ML VIAL/SYRINGE SQ SCH (21:02)
[2022-12-25] MEDS: PERCOCET 5MG/325MG TAB PO PRN ×4 (02:59→21:14)
[2022-12-25] MEDS: VANCOMYCIN HCL 1,000 MG, VIAL MATE ADAPTER 1 EACH in NS 250 ML IV SCH ×2 (02:59→09:37)
[2022-12-25 03:00] VITALS: BP 160/74; TEMP 98.1; O2SAT 96
[2022-12-25] MEDS: HEPARIN SOD (PORCINE) 5000UNITS/ML 1ML VIAL/SYRINGE SQ SCH ×3 (05:11→21:14)
[2022-12-25] MEDS: LR 1,000 ML IV SCH (05:13)
[2022-12-25 06:08] LABS: BASO % 0.3 % (0.0-1.0); EOS # 0.3 10^3/uL (0.0-0.5); EOS % 4.4 % (0.0-3.0); LYMPH # 0.7 10^3/uL (1.5-5.0); LYMPH % 11.1 % (24.0-44.0); MEAN CORPUSCULAR HEMOGLOBIN 30.1 pg (27.0-33.0); MEAN CORPUSCULAR HGB CONC 32.4 g/dl (32.0-36.5); MEAN CORPUSCULAR VOLUME 93.2 fl (80.0-96.0); MONO # 0.6 10^3/uL (0.0-0.8); MONO % 9.7 % (2.0-8.0); NEUTROPHILS # 4.8 10^3/uL (1.5-8.5); NEUTROPHILS % 74.2 % (36.0-66.0); PLATELET COUNT, AUTOMATED 210 10^3/uL (150-450); RED BLOOD COUNT 3.65 10^6/uL (4.30-6.10); WHITE BLOOD COUNT 6.4 10^3/uL (4.0-10.0)
[2022-12-25 06:31] LABS: BLOOD UREA NITROGEN 11 MG/DL (9-23); CALCIUM LEVEL 8.5 MG/DL (8.3-10.6); CARBON DIOXIDE LEVEL 27 MMOL/L (20-31); CHLORIDE LEVEL 104 MMOL/L (98-107); CREATININE FOR GFR 0.81 MG/DL (0.70-1.30); GLOMERULAR FILTRATION RATE > 60.0 (>49); GLUCOSE, FASTING 89 MG/DL (74-106); MAGNESIUM LEVEL 1.8 MG/DL (1.8-2.4); POTASSIUM SERUM 4.1 MMOL/L (3.5-5.1); SODIUM LEVEL 139 MMOL/L (136-145)
[2022-12-25 06:50] VITALS: BP 166/84; TEMP 97.9; O2SAT 96
[2022-12-25] MEDS: INSULIN LISPRO (NovoLOG) PER UNIT SC SCH ×5 (07:30→19:53)
[2022-12-25] MEDS ORDERED: INSULIN LISPRO (NovoLOG) PER UNIT SC SCH (07:30)
[2022-12-25] MEDS: amLODIPine 5 MG TAB PO SCH (09:17)
[2022-12-25] MEDS: OLMESARTAN MEDOXOMIL 20 MG TAB (BENICAR) PO SCH (09:18)
[2022-12-25] MEDS: GABAPENTIN 300 MG CAP PO SCH ×3 (09:18→19:53)
[2022-12-25] MEDS: PANTOPRAZOLE 40MG TAB (PROTONIX) PO SCH ×2 (09:20→19:53)
[2022-12-25] MEDS: TAMSULOSIN 0.4 MG CAP PO SCH ×2 (09:20→19:53)
[2022-12-25 09:25] VITALS: BP 129/62
[2022-12-25 14:00] VITALS: BP 150/75; TEMP 97.9; O2SAT 98
[2022-12-25] MEDS: VANCOMYCIN HCL 750 MG, VIAL MATE ADAPTER 1 EACH in D5W 250 ML IV SCH ×2 (16:55→18:10)
[2022-12-25] MEDS: ROSUVASTATIN 10 MG TAB (CRESTOR) PO SCH (19:53)
[2022-12-25 22:02] VITALS: BP 153/72; TEMP 98.2; O2SAT 98
[2022-12-26] MEDS: VANCOMYCIN HCL 750 MG, VIAL MATE ADAPTER 1 EACH in D5W 250 ML IV SCH ×4 (05:21→19:31)
[2022-12-26] MEDS: HEPARIN SOD (PORCINE) 5000UNITS/ML 1ML VIAL/SYRINGE SQ SCH ×3 (05:21→20:22)
[2022-12-26 06:01] VITALS: BP 158/90; TEMP 97.9; O2SAT 95
[2022-12-26 06:27] LABS: BASO % 0.4 % (0.0-1.0); EOS # 0.3 10^3/uL (0.0-0.5); EOS % 5.6 % (0.0-3.0); HEMATOCRIT 31.9 % (42.0-52.0); HEMOGLOBIN 10.6 g/dl (13.5-17.5); LYMPH # 0.6 10^3/uL (1.5-5.0); LYMPH % 11.3 % (24.0-44.0); MEAN CORPUSCULAR HEMOGLOBIN 30.9 pg (27.0-33.0); MEAN CORPUSCULAR HGB CONC 33.2 g/dl (32.0-36.5); MONO # 0.4 10^3/uL (0.0-0.8); MONO % 8.1 % (2.0-8.0); NEUTROPHILS % 74.2 % (36.0-66.0); PLATELET COUNT, AUTOMATED 208 10^3/uL (150-450); RED BLOOD COUNT 3.43 10^6/uL (4.30-6.10); WHITE BLOOD COUNT 5.3 10^3/uL (4.0-10.0)
[2022-12-26 06:53] LABS: BLOOD UREA NITROGEN 13 MG/DL (9-23); CALCIUM LEVEL 8.1 MG/DL (8.3-10.6); CARBON DIOXIDE LEVEL 28 MMOL/L (20-31); CHLORIDE LEVEL 101 MMOL/L (98-107); CREATININE FOR GFR 0.85 MG/DL (0.70-1.30); GLOMERULAR FILTRATION RATE > 60.0 (>49); GLUCOSE, FASTING 186 MG/DL (74-106); MAGNESIUM LEVEL 1.8 MG/DL (1.8-2.4); POTASSIUM SERUM 3.7 MMOL/L (3.5-5.1); SODIUM LEVEL 136 MMOL/L (136-145)
[2022-12-26] MEDS: INSULIN LISPRO (NovoLOG) PER UNIT SC SCH ×4 (07:30→20:31)
[2022-12-26] MEDS ORDERED: MECLIZINE 25 MG TABLET PO ONE (08:00)
[2022-12-26] MEDS: GABAPENTIN 300 MG CAP PO SCH ×3 (08:16→20:23)
[2022-12-26] MEDS: TAMSULOSIN 0.4 MG CAP PO SCH ×2 (08:16→20:22)
[2022-12-26] MEDS: PANTOPRAZOLE 40MG TAB (PROTONIX) PO SCH ×2 (08:16→20:23)
[2022-12-26] MEDS: amLODIPine 5 MG TAB PO SCH (08:17)
[2022-12-26] MEDS: OLMESARTAN MEDOXOMIL 20 MG TAB (BENICAR) PO SCH (08:17)
[2022-12-26] MEDS ORDERED: amLODIPine 5 MG TAB PO ONE ×2 (09:10→12:50)
[2022-12-26] MEDS: BUDESONIDE 180MCG INHALER (PULMICORT FLEXHALER) INH SCH ×2 (13:39→20:11)
[2022-12-26 14:00] VITALS: BP 157/68; TEMP 97.9; O2SAT 98
[2022-12-26] MEDS: ASPIRIN 81MG ENTERIC TABLET PO SCH (14:22)
[2022-12-26] MEDS: MULTIVITAMINS/MINERALS THERAP 1 TAB PO SCH (14:22)
[2022-12-26] MEDS: PERCOCET 5MG/325MG TAB PO PRN ×2 (14:22→20:27)
[2022-12-26] MEDS: VITAMIN D 1,000 INTERNATIONAL UNITS TABLET PO SCH (14:23)
[2022-12-26] MEDS: ASCORBIC ACID 500 MG TAB PO SCH (14:23)
[2022-12-26] MEDS: ROSUVASTATIN 10 MG TAB (CRESTOR) PO SCH (20:23)
[2022-12-26 20:33] VITALS: BP 165/72; TEMP 98.1; O2SAT 98
[2022-12-27] MEDS: VANCOMYCIN HCL 750 MG, VIAL MATE ADAPTER 1 EACH in D5W 250 ML IV SCH ×2 (04:14→05:26)
[2022-12-27] MEDS: HEPARIN SOD (PORCINE) 5000UNITS/ML 1ML VIAL/SYRINGE SQ SCH ×3 (04:16→21:38)
[2022-12-27] MEDS: PERCOCET 5MG/325MG TAB PO PRN ×3 (04:17→21:38)
[2022-12-27 06:01] VITALS: BP 133/71; TEMP 97.9; O2SAT 98
[2022-12-27 06:23] LABS: BASO % 0.4 % (0.0-1.0); EOS # 0.4 10^3/uL (0.0-0.5); EOS % 6.2 % (0.0-3.0); HEMATOCRIT 33.2 % (42.0-52.0); HEMOGLOBIN 10.8 g/dl (13.5-17.5); LYMPH # 0.6 10^3/uL (1.5-5.0); LYMPH % 10.5 % (24.0-44.0); MEAN CORPUSCULAR HEMOGLOBIN 30.5 pg (27.0-33.0); MEAN CORPUSCULAR HGB CONC 32.5 g/dl (32.0-36.5); MEAN CORPUSCULAR VOLUME 93.8 fl (80.0-96.0); MONO # 0.6 10^3/uL (0.0-0.8); MONO % 9.8 % (2.0-8.0); NEUTROPHILS # 4.1 10^3/uL (1.5-8.5); NEUTROPHILS % 72.9 % (36.0-66.0); PLATELET COUNT, AUTOMATED 220 10^3/uL (150-450); RED BLOOD COUNT 3.54 10^6/uL (4.30-6.10); WHITE BLOOD COUNT 5.6 10^3/uL (4.0-10.0)
[2022-12-27 06:43] LABS: BLOOD UREA NITROGEN 12 MG/DL (9-23); CALCIUM LEVEL 8.1 MG/DL (8.3-10.6); CARBON DIOXIDE LEVEL 29 MMOL/L (20-31); CHLORIDE LEVEL 103 MMOL/L (98-107); CREATININE FOR GFR 0.89 MG/DL (0.70-1.30); GLOMERULAR FILTRATION RATE > 60.0 (>49); GLUCOSE, FASTING 138 MG/DL (74-106); MAGNESIUM LEVEL 1.9 MG/DL (1.8-2.4); POTASSIUM SERUM 3.9 MMOL/L (3.5-5.1); SODIUM LEVEL 137 MMOL/L (136-145)
[2022-12-27] MEDS: INSULIN LISPRO (NovoLOG) PER UNIT SC SCH ×5 (07:30→21:00)
[2022-12-27] MEDS: BUDESONIDE 180MCG INHALER (PULMICORT FLEXHALER) INH SCH ×2 (07:47→20:36)
[2022-12-27] MEDS: MULTIVITAMINS/MINERALS THERAP 1 TAB PO SCH (08:27)
[2022-12-27] MEDS: GABAPENTIN 300 MG CAP PO SCH ×3 (08:27→21:36)
[2022-12-27] MEDS: VITAMIN D 1,000 INTERNATIONAL UNITS TABLET PO SCH (08:28)
[2022-12-27] MEDS: ASPIRIN 81MG ENTERIC TABLET PO SCH (08:28)
[2022-12-27] MEDS: ASCORBIC ACID 500 MG TAB PO SCH (08:28)
[2022-12-27] MEDS: PANTOPRAZOLE 40MG TAB (PROTONIX) PO SCH ×2 (08:28→21:38)
[2022-12-27] MEDS: TAMSULOSIN 0.4 MG CAP PO SCH ×2 (08:28→21:38)
[2022-12-27] MEDS: OLMESARTAN MEDOXOMIL 20 MG TAB (BENICAR) PO SCH (08:29)
[2022-12-27] MEDS ORDERED: MECLIZINE 25 MG TABLET PO PRN (10:45)
[2022-12-27 14:00] VITALS: BP 148/68; TEMP 97.9; O2SAT 98
[2022-12-27] MEDS: ROSUVASTATIN 10 MG TAB (CRESTOR) PO SCH (21:36)
[2022-12-27] MEDS: DOXYCYCLINE HYCLATE 100MG TABLET PO SCH (21:38)
[2022-12-27 21:40] VITALS: BP 176/84; TEMP 98.3; O2SAT 96
[2022-12-27] MEDS ORDERED: NITROGLYCERIN 2% OINT 1 GM *U/D* PKT TOP ONE (22:30)
[2022-12-28 00:30] VITALS: BP 122/60; TEMP 97.2; O2SAT 96
[2022-12-28 05:40] VITALS: BP 127/63; TEMP 99.8; O2SAT 97
[2022-12-28] MEDS: HEPARIN SOD (PORCINE) 5000UNITS/ML 1ML VIAL/SYRINGE SQ SCH (05:52)
[2022-12-28] MEDS: PERCOCET 5MG/325MG TAB PO PRN (05:54)
[2022-12-28 06:19] LABS: BASO % 0.4 % (0.0-1.0); EOS # 0.4 10^3/uL (0.0-0.5); EOS % 6.5 % (0.0-3.0); HEMATOCRIT 33.6 % (42.0-52.0); LYMPH # 0.7 10^3/uL (1.5-5.0); LYMPH % 13.1 % (24.0-44.0); MEAN CORPUSCULAR HEMOGLOBIN 30.8 pg (27.0-33.0); MEAN CORPUSCULAR HGB CONC 32.7 g/dl (32.0-36.5); MEAN CORPUSCULAR VOLUME 94.1 fl (80.0-96.0); MONO # 0.5 10^3/uL (0.0-0.8); MONO % 8.9 % (2.0-8.0); NEUTROPHILS # 3.8 10^3/uL (1.5-8.5); NEUTROPHILS % 70.5 % (36.0-66.0); PLATELET COUNT, AUTOMATED 225 10^3/uL (150-450); RED BLOOD COUNT 3.57 10^6/uL (4.30-6.10); WHITE BLOOD COUNT 5.4 10^3/uL (4.0-10.0)
[2022-12-28 06:52] LABS: BLOOD UREA NITROGEN 14 MG/DL (9-23); CALCIUM LEVEL 8.4 MG/DL (8.3-10.6); CARBON DIOXIDE LEVEL 31 MMOL/L (20-31); CHLORIDE LEVEL 104 MMOL/L (98-107); GLOMERULAR FILTRATION RATE > 60.0 (>49); GLUCOSE, FASTING 106 MG/DL (74-106); MAGNESIUM LEVEL 1.9 MG/DL (1.8-2.4); POTASSIUM SERUM 4.3 MMOL/L (3.5-5.1); SODIUM LEVEL 139 MMOL/L (136-145)
[2022-12-28 06:54] VITALS: O2SAT 98
[2022-12-28] MEDS: INSULIN LISPRO (NovoLOG) PER UNIT SC SCH ×2 (07:19→12:00)
[2022-12-28] MEDS: BUDESONIDE 180MCG INHALER (PULMICORT FLEXHALER) INH SCH (07:54)
[2022-12-28] MEDS: MULTIVITAMINS/MINERALS THERAP 1 TAB PO SCH (08:20)
[2022-12-28] MEDS: ASCORBIC ACID 500 MG TAB PO SCH (08:20)
[2022-12-28] MEDS: GABAPENTIN 300 MG CAP PO SCH (08:20)
[2022-12-28] MEDS: VITAMIN D 1,000 INTERNATIONAL UNITS TABLET PO SCH (08:20)
[2022-12-28 08:21] VITALS: BP 139/65
[2022-12-28] MEDS: TAMSULOSIN 0.4 MG CAP PO SCH (08:21)
[2022-12-28] MEDS: OLMESARTAN MEDOXOMIL 20 MG TAB (BENICAR) PO SCH (08:21)
[2022-12-28] MEDS: PANTOPRAZOLE 40MG TAB (PROTONIX) PO SCH (08:21)
[2022-12-28] MEDS: DOXYCYCLINE HYCLATE 100MG TABLET PO SCH (08:21)
[2022-12-28] MEDS: ASPIRIN 81MG ENTERIC TABLET PO SCH (08:21)
[2022-12-28] MEDS ORDERED: DOXY100T PO (08:55)
[2022-12-28] MEDS ORDERED: AMLO1TAB25 PO (08:55)
[2022-12-28] MEDS ORDERED: MECL-86 PO (08:55)
[2022-12-28] MEDS ORDERED: PERCOCET PO (08:55)
[2022-12-28] MEDS ORDERED: AMOX875T2 PO (08:58)
== END 2022-12-28 12:21 | disposition home or self-care (01) | DRG 314 ==
LOC: M ED 16:39 → M ED INP 22:08 → M MSPAV 12-24 01:23
PROVIDERS: ADMIT Internal Medicine; ATTEND Internal Medicine
PROC: 0Y6P0Z3 Detachment at Right 1st Toe, Low, Open Approach (ICD-10-PCS; 2022-12-24)
PROC: 0Y6T0Z0 Detachment at Right 3rd Toe, Complete, Open Approach (ICD-10-PCS; principal; 2022-12-24 14:00)
PROC: B246ZZZ Ultrasonography of Right and Left Heart (ICD-10-PCS; 2022-12-25)
DX: E11.69 Type 2 diabetes mellitus with other specified complication (principal); C32.9 Malignant neoplasm of larynx, unspecified; M86.8X7 Other osteomyelitis, ankle and foot; I10 Essential (primary) hypertension; E55.9 Vitamin D deficiency, unspecified; D64.9 Anemia, unspecified; K21.9 Gastro-esophageal reflux disease without esophagitis; N40.0 Benign prostatic hyperplasia without lower urinary tract symptoms; N52.9 Male erectile dysfunction, unspecified; J45.909 Unspecified asthma, uncomplicated; G47.33 Obstructive sleep apnea (adult) (pediatric); E78.5 Hyperlipidemia, unspecified; Z79.82 Long term (current) use of aspirin; Z79.84 Long term (current) use of oral hypoglycemic drugs; Z79.899 Other long term (current) drug therapy; Z88.2 Allergy status to sulfonamides; Z88.8 Allergy status to other drugs, medicaments and biological substances; Z20.822 Contact with and (suspected) exposure to COVID-19; Z92.3 Personal history of irradiation; Z89.421 Acquired absence of other right toe(s); Z89.422 Acquired absence of other left toe(s); Z89.412 Acquired absence of left great toe; E11.42 Type 2 diabetes mellitus with diabetic polyneuropathy; E11.621 Type 2 diabetes mellitus with foot ulcer; H81.399 Other peripheral vertigo, unspecified ear; R01.1 Cardiac murmur, unspecified

== ENCOUNTER → 2023-03-11 | Outpatient (CLI) | payer BC ==
[~2023-03-11] MED LIST changes: -ALLE1TAB23 PO; +BUDE2SUS3 INH; +CEFD1CAP9 PO; -CEFD300C42 PO; -CIME200T4 PO; +CIME200T40 PO; +DOXY100T PO; +FEXO-157 PO; +IBUP200C29 PO; +MECL-86 PO; +OLME20TA50 PO; +SEMA1PEN2 SQ; +SILD100T PO; +SILV50CR TOP; +TADA20TA PO; +VITA-199 PO; +VITA-243 PO; +VITATAB73 PO
[2023-03-11 08:05] LABS: BASO % 0.2 % (0.0-1.0); EOS # 0.1 10^3/uL (0.0-0.5); EOS % 0.5 % (0.0-3.0); HEMATOCRIT 38.8 % (42.0-52.0); HEMOGLOBIN 13.1 g/dl (13.5-17.5); LYMPH # 0.8 10^3/uL (1.5-5.0); LYMPH % 4.7 % (24.0-44.0); MEAN CORPUSCULAR HEMOGLOBIN 30.1 pg (27.0-33.0); MEAN CORPUSCULAR HGB CONC 33.8 g/dl (32.0-36.5); MEAN CORPUSCULAR VOLUME 89.2 fl (80.0-96.0); MONO # 0.9 10^3/uL (0.0-0.8); NEUTROPHILS # 15.2 10^3/uL (1.5-8.5); NEUTROPHILS % 88.9 % (36.0-66.0); PLATELET COUNT, AUTOMATED 284 10^3/uL (150-450); RED BLOOD COUNT 4.35 10^6/uL (4.30-6.10); WHITE BLOOD COUNT 17.1 10^3/uL (4.0-10.0)
[2023-03-11 08:17] LABS: INR 1.18; PROTHROMBIN TIME 14.6 SECONDS (12.5-14.5)
== END ==
LOC: M LAB 07:14
PROVIDERS: ATTEND Radiology Diagnostic Radiology
DX: Z01.812 Encounter for preprocedural laboratory examination (principal)